=== PATIENT | female | born 1955 | race African-American/Black ===

== ENCOUNTER 2019-04-13 08:01 | Inpatient (IN) | payer MEDICARE, MEDICAID ==
[2019-04-13] VITALS (14 sets, daily range): BP systolic 72–137; BP diastolic 40–107
[~2019-04-13] VITALS: Ht 170.2 cm; Wt 93.4 kg
--- NOTE | 2019-04-13 08:19 | Emergency Room Report ---
History of Present Illness General Chief Complaint: General Complaint Source: Patient, EMS Present Illness HPI Paramedics were called because the patient had bleeding from her dialysis shunt. They state that she lost a liter of blood. (This may be an underestimate as 8 couch cushion was soaked with blood that they did not see.) Her blood pressure was 80 in the field. They established an IV and gave the patient [address] in. The patient is complaining about some lower back pain. She has had a stroke before and has halting speech. She denies any chest pain or shortness of breath. Her last dialysis was . She is due for dialysis today. The back pain is chronic. She rates his pain 5/ 10 and aching. It is not radiating. She has chronic right-sided weakness post stroke. Patient feels somewhat nauseated right now and has some retching. She does still make urine and denies dysuria. According to her cousins there was some blood in the vaginal area. The patient denies rectal or vaginal bleeding. According to her cousin she is supposed to have her fistula revised. She has an appointment for April 21. She is due for dialysis today. No fevers, chills, sore throat, chest pain, palpitations, diarrhea, abdominal pain, shortness of breath, depression, anxiety, visual changes, headache. Allergies: Coded Allergies: ASPIRIN (Unverified Allergy, Unknown, 04/13/19) PENICILLINS (Unverified Allergy, Unknown, 04/13/19) Patient History Past Medical History: see triage record Past Surgical History: other - dialysis fistula Social History: Denies: smoking, alcohol use, drug use Social History Narrative Lives by herself but checked on by cousins Last Menstrual Period: N/A Now: No Reviewed Nursing Documentation: PMH: Agreed; PSxH: Agreed Nursing Documentation-PMH Hx Cardiac Problems: Yes - CVA Hx Hypertension: Yes Review of Systems All Other Systems: negative except mentioned in HPI Physical Exam Vital Signs Date Time Temp Pulse Resp B/P (MAP) Pulse Ox O2 Delivery O2 Flow Rate FiO2 04/13/19 07:53 97.9 88 18 137/107 (117) 98 Room Air Sp02 EP Interpretation: reviewed, normal General Appearance: well appearing, no apparent distress, GCS 15, non-toxic, obese, Chronically Ill Head: normocephalic Eyes: bilateral eye PERRL, bilateral eye EOMI, bilateral eye conjunctivae pale ENT: normal pharynx, moist mucus membranes Neck: full range of motion, supple Respiratory: chest non-tender, lungs clear, normal breath sounds Cardiovascular #1: regular rate, rhythm, no edema Cardiovascular #2: 2+ radial (R), 2+ radial (L) - Fistula left upper arm with ulcerations no active bleeding Gastrointestinal: normal inspection, normal bowel sounds, non tender, no mass, non-distended Genitourinary: other - No blood external genitalia, foul odor Musculoskeletal: back normal - Some mild tenderness there, normal range of motion Neurologic: alert, oriented x3, sensory intact, motor weakness, other - Halting speech and right weakness Psychiatric: mood/affect normal Skin: warm/dry, pallor - Minimal Procedures Critical Care Time Critical Care Time Total Critical Care Time: 90 min bedside evaluation and treatment excludes procedures (EKG, Dermabond of fistulae ulcers). Reason for critical care: Hemorrhagic shock, treatment of hypotension, arranging for blood, reevaluation with considerations of sepsis and beginning antibiotics, discussion with family and patient, informed consent for blood transfusion, Dermabond application on fistula ulcers Possible complications: hypotension, hypertension, OK, shock, arrhythmias, metabolic acidosis, end organ damage, respiratory failure. Interventions: Repeat evaluations, judicious treatment with boluses of hypotension, discussion with blood bank and arrangement for blood transfusion, informed consent, reevaluation for possible sepsis, antibiotic administration, blood transfusion, Dermabond application on fistula Course: Patient presented post significant blood loss from dialysis shunt. EMS IV infiltrated. Contact vascular center for plans fistula revision. Transient hypotension with judicious bolus of normal saline given. Improvement. Discussion with blood bank if need for blood transfusions. Evaluation for possible sepsis with elevated lactic acid. Antibiotics administered for presumptive urinary tract infection. Evaluation of fluid status with chest x- ray. Discussion with patient and family risks and benefits of blood transfusion. Discussions with blood bank regarding need for stat blood. Blood transfused and rate increased per my orders. Blood pressure improved and no signs of failure. Discussion with admitting physician. Dermabond placed on dialysis catheter ulcers. Assessment of no need for emergent dialysis at this time. Discussion with nursing room service supervisor need for intensive care admission. Consultations: nursing staff, EMS, family, blood bank Performed by: Dr. Christianson Tolerated well condition = critical Additional Procedure Procedure Narrative A Betadine prep. Application of Dermabond to fistula ulcers. Tolerated well Medical Decision Making Diagnostic Impression: Primary Impression: Hemorrhagic shock Additional Impressions: Sepsis Qualified Codes: A41.9 - Sepsis, unspecified organism End stage renal disease on dialysis ER Course Patient presents with bleeding from her dialysis shunt with hypotension in the field corrected at this time. Differential includes hemorrhagic shock, acute myocardial infarction, coagulopathy, electrolyte imbalance amongst others. Evaluation with EKG, chest x-ray and labs. The patient is placed on a field crop farmer. His blood pressure has been corrected for the moment. Lactic acid will be checked. The bleeding shunt area will be stabilized with Dermabond. Due to comorbidities and the fact that she presented in shock she should be observed in the hospital in a monitored setting. EKG normal sinus rhythm without any injury. Attempt to contact vascular access center. They are Monday through Monday. Message left. Latin [employer] Studies Director IV had infiltrated. No IV fluids administered IV. IV established by RN here. Blood pressure dropped. Normal saline bolus given. Patient without change in mentation. 910 BP up to 90 after initial bolus. Repeat bolus. Lactic acid high - more likely hemorrhagic shock than sepsis. Dermabond applied to fistula ulcers. Tolerated well. WBC elevated. BC and antibiotics ordered. BP better with fluids however blood transfusions ordered. 1000 (Sepsis re-evaluation) informed consent for blood transfusion with patient and patient's family. Patient's hypotension is fluid responsive. Calling for blood. Second lactic acid slightly higher. (Need blood - antibiotics infusing.) Urine still not produced but refusing cath. Blood begun. Increased rate due to hemorrhagic shock per my order. First unit infused with clinical improvement in blood pressure. Mentation still baseline. Capillary fill good. Admitted to ICU. Laboratory Tests Test 04/13/19 08:30 04/13/19 08:40 04/13/19 08:45 04/13/19 10:15 Hepatitis B Surface Antigen Pending Prothrombin Time 11.2 SEC (9.30-11.50) Prothrombin Time INR 1.1 (0.9-1.1) Activated Partial Thromboplast Time 26 SEC (23-33) Sodium Level 140 MMOL/L (136-145) Potassium Level 5.7 MMOL/L (3.5-5.1) H Chloride Level 103 MMOL/L (98-107) Carbon Dioxide Level 20 MMOL/L (21-32) L Anion Gap 17 mmol/L (5-15) H Blood Urea Nitrogen 44 mg/dL (7-18) H Creatinine 9.0 MG/DL (0.55-1.30) H Estimate Glomerular Filtration Rate 5.5 mL/min (>60) Glucose Level 139 MG/DL (74-106) H Calcium Level 10.3 MG/DL (8.5-10.1) H Magnesium Level 2.4 MG/DL (1.8-2.4) Total Bilirubin 0.3 MG/DL (0.2-1.0) Aspartate Amino Transferase (AST) 29 U/L (15-37) Alanine Aminotransferase (ALT) 23 U/L (12-78) Alkaline Phosphatase 73 U/L (46-116) Troponin I 0.026 ng/mL (0.000-0.056) Pro-B-Type Natriuretic Peptide 1421 pg/mL (0-125) H Total Protein 7.0 G/DL (6.4-8.2) Albumin 3.1 G/DL (3.4-5.0) L Globulin 3.9 g/dL Albumin/Globulin Ratio 0.8 (1.0-2.7) L White Blood Count 18.5 K/UL (4.8-10.8) H Red Blood Count 3.25 M/UL (4.20-5.40) L Hemoglobin 9.2 G/DL (12.0-16.0) L Hematocrit 29.0 % (37.0-47.0) L Mean Corpuscular Volume 89 FL (80-99) Mean Corpuscular Hemoglobin 28.4 PG (27.0-31.0) Mean Corpuscular Hemoglobin Concent 31.8 G/DL (32.0-36.0) L Red Cell Distribution Width 13.5 % (11.6-14.8) Platelet Count 358 K/UL (150-450) Mean Platelet Volume 4.3 FL (6.5-10.1) L Neutrophils (%) (Auto) % (45.0-75.0) Lymphocytes (%) (Auto) % (20.0-45.0) Monocytes (%) (Auto) % (1.0-10.0) Eosinophils (%) (Auto) % (0.0-3.0) Basophils (%) (Auto) % (0.0-2.0) Differential Total Cells Counted 100 Neutrophils % (Manual) 84 % (45-75) H Lymphocytes % (Manual) 8 % (20-45) L Monocytes % (Manual) 8 % (1-10) Eosinophils % (Manual) 0 % (0-3) Basophils % (Manual) 0 % (0-2) Band Neutrophils 0 % (0-8) Platelet Estimate Adequate Platelet Morphology Normal Hypochromasia 2+ Anisocytosis 1+ Lactic Acid Level 4.60 mmol/L (0.4-2.0) H 5.00 mmol/L (0.66-2.22) H Test 04/13/19 18:30 04/13/19 18:45 White Blood Count 15.4 K/UL (4.8-10.8) H Red Blood Count 2.89 M/UL (4.20-5.40) L Hemoglobin 7.8 G/DL (12.0-16.0) L Hematocrit 24.6 % (37.0-47.0) L Mean Corpuscular Volume 85 FL (80-99) Mean Corpuscular Hemoglobin 27.0 PG (27.0-31.0) Mean Corpuscular Hemoglobin Concent 31.8 G/DL (32.0-36.0) L Red Cell Distribution Width 15.0 % (11.6-14.8) H Platelet Count 249 K/UL (150-450) Mean Platelet Volume 4.9 FL (6.5-10.1) L Neutrophils (%) (Auto) % (45.0-75.0) Lymphocytes (%) (Auto) % (20.0-45.0) Monocytes (%) (Auto) % (1.0-10.0) Eosinophils (%) (Auto) % (0.0-3.0) Basophils (%) (Auto) % (0.0-2.0) Neutrophils % (Manual) Pending Lymphocytes % (Manual) Pending Platelet Estimate Pending Platelet Morphology Pending Lactic Acid Level Pending EKG Diagnostic Results Rate: normal Rhythm: NSR ST Segments: no acute changes Rhythm Strip Diag. Results EP Interpretation: yes Rhythm: NSR, no PVC's, no ectopy Chest X-Ray Diagnostic Results Chest X-Ray Diagnostic Results : Chest X-Ray Ordered: Yes # of Views/Limited/Complete: 1 View Indication: Other EP Interpretation: Yes Interpretation: no consolidation, no effusion, no pneumothorax, other - Cardiomegaly Impression: Other Electronically Signed by: Electronically signed by Steve Christianson MD Last Vital Signs Date Time Temp Pulse Resp B/P (MAP) Pulse Ox O2 Delivery O2 Flow Rate FiO2 04/13/19 19:00 92 12 108/60 (76) 100 04/13/19 18:00 98.2 04/13/19 16:00 Nasal Cannula 2.0 Status: improved Disposition: ADMITTED INPATIENT Condition: Critical Steve Christianson MD Apr 13, 2019 08:19
--- NOTE | 2019-04-13 08:29 | NUR ---
ED Nurse Note: pt arrived with RA 26 due to left upper arm fistual bleeding out from home. pt is aox4, on room air.
--- NOTE | 2019-04-13 08:45 | NUR ---
ED Nurse Note: Pt Dialysis schedule is . Pt completed dialysis on . Pt cousin is at bedside.
--- NOTE | 2019-04-13 08:46 | NUR ---
ED Nurse Note: DIALYSIS NOT COMPLETED TODAY
--- NOTE | 2019-04-13 08:55 | NUR ---
ED Nurse Note: IV SITE ESTABLISHED, PATENT AND INTACT. BLOOD COLLECTED
--- NOTE | 2019-04-13 09:00 | NUR ---
ED Nurse Note: Chest xray completed
[2019-04-13 09:09] LABS: HEMOGLOBIN 9.2 G/DL (12.0-16.0); MEAN CORPUSCULAR VOLUME 89 FL (80-99); PLATELET COUNT 358 K/UL (150-450); RED BLOOD COUNT 3.25 M/UL (4.20-5.40); RED CELL DISTRIBUTION WIDTH 13.5 % (11.6-14.8); WHITE BLOOD COUNT 18.5 K/UL (4.8-10.8)
[2019-04-13 09:14] LABS: ANION GAP 17 mmol/L (5-15); BLOOD UREA NITROGEN 44 mg/dL (7-18); CALCIUM 10.3 MG/DL (8.5-10.1); CARBON DIOXIDE 20 MMOL/L (21-32); CHLORIDE 103 MMOL/L (98-107); POTASSIUM 5.7 MMOL/L (3.5-5.1); SODIUM 140 MMOL/L (136-145)
[2019-04-13 09:15] LABS: INR 1.1 (0.9-1.1)
[2019-04-13 09:20] LABS: ALANINE AMINOTRANSFERASE 23 U/L (12-78); ALBUMIN 3.1 G/DL (3.4-5.0); ALBUMIN/GLOBULIN RATIO 0.8 (1.0-2.7); ALKALINE PHOSPHATASE 73 U/L (46-116); ASPARTATE AMINO TRANSFERASE 29 U/L (15-37); BILIRUBIN,TOTAL 0.3 MG/DL (0.2-1.0)
[2019-04-13] MEDS ORDERED: Cefepime HCl 1 GM in D5W 55 ML IVPB ONE (10:00)
--- NOTE | 2019-04-13 10:15 | Diagnostic Imaging Report ---
EXAM: XR Chest, 1 View CLINICAL HISTORY: ALOC TECHNIQUE: Frontal view of the chest. COMPARISON: None FINDINGS: Hardware: None. Lungs/pleura: Normal. No focal consolidation. No pleural effusion or pneumothorax. Heart/mediastinum: Mild enlargement of the cardiac silhouette. Atherosclerotic calcifications in the aorta. Soft tissues: Unremarkable. Bones: No acute fracture. Upper abdomen: Normal. IMPRESSION: No acute disease identified.
--- NOTE | 2019-04-13 10:15 | NUR ---
ED Nurse Note: barbara bull and laisha at bedside
--- NOTE | 2019-04-13 11:05 | NUR ---
ED Nurse Note: cleaned pt, placed in new gown, changed linens. pt provided with blanket
--- NOTE | 2019-04-13 11:14 | NUR ---
ED Nurse Note: Pt assisted onto bedpan, pt was unable to urinate. pt is aox4, and refused in and out catheter.
--- NOTE | 2019-04-13 11:40 | NUR ---
ED Nurse Note: BLOOD TRANSFUSION INTIATED, VSS. PT TOLERATING TREATMENT WELL.
--- NOTE | 2019-04-13 12:03 | NUR ---
Maite patel in ED - 04/13/19 at 1204 by ALYSSA ED Nurse Note: Telephone gildardo Hernandez RN for continuity of care
[2019-04-13] MEDS ORDERED: TYLENOL EXTRA500 MG ORAL (12:11)
[2019-04-13] MEDS ORDERED: CARVEDILOL12.5 MG ORAL (12:11)
[2019-04-13] MEDS ORDERED: MONTELUKAST SOD10 MG ORAL (12:11)
[2019-04-13] MEDS ORDERED: DIPHENHYDRAMINE25 M1 ORAL (12:11)
[2019-04-13] MEDS ORDERED: SIMVASTATIN20 MG ORAL (12:11)
[2019-04-13] MEDS ORDERED: VITAMIN D32400 UNIT/ MC (12:11)
[2019-04-13] MEDS ORDERED: RENVELA0.8 GM ORAL (12:11)
--- NOTE | 2019-04-13 12:20 | NUR ---
TRANSFER TO FLOOR: Patient transferred to ICU as ordered, per ERMD. Report given to ARELI HOOD. Belongings and medications given to VIRY SINGER. Family and or S/O informed of transfer.
--- NOTE | 2019-04-13 13:00 | NUR ---
NURSE NOTES: Received new admission, transferred over from ER via [facility]. Report was received from Razia SINGLETON. Pt was placed on wood technologist, displays NSR, HR is 70 with weak peripheral pulses. Temp 98.3F axillary. Pt is alert, oriented x3, on 2L of oxygen via nasal cannula with no respiratory distress, O2Sat 98% with bilateral slightly diminished lung sounds. Pt reports nausea. Abdomen is large, round, soft, nontender to touch with hypoactive bowel sounds. Pt has peripheral IV access on right FA #20G, saline locked, patent/intact. Pt also has left UA dialysis shunt, no current bleeding. Pt uses bedpan to urinate. Skin is intact. Bed is locked, with three side rails up, HOB at 30degrees, and call light is placed within easy reach. Will contact Dr Earl for new admission orders and follow plan of care.
--- NOTE | 2019-04-13 14:00 | NUR ---
NURSE NOTES: Pt was seen by Dr Earl. Orders were received and processed. Pt had x1 episode of vomiting. aware. Pt was cleaned and repositioned in bed. VS remain stable. Addendum: 04/13/19 at 1744 by TAMIE SHAY RN Pt was administered x1 dose of Zofran per PRN order for n/v. Pt is resting now in no apparent distress.
[2019-04-13] MEDS ORDERED: Vancomycin 1.5gm/NS Premix q24h IVPB ONE (14:30)
--- NOTE | 2019-04-13 15:13 | Diagnostic Imaging Report ---
EXAM: US Duplex Bilateral Lower Extremities Veins CLINICAL HISTORY: DVT TECHNIQUE: Real-time duplex ultrasound scan of the bilateral lower extremity veins integrating B-mode two-dimensional vascular structure, Doppler spectral analysis, color flow Doppler imaging and compression. COMPARISON: None FINDINGS: Right deep veins: Unremarkable. No DVT in the right common femoral, femoral, proximal deep femoral or popliteal veins. The veins demonstrate normal color flow, are normally compressible, with normal phasic flow and/or augmentation response. Right superficial veins: Unremarkable. No thrombus in the visualized right great saphenous vein. Left deep veins: Unremarkable. No DVT in the left common femoral, femoral, proximal deep femoral or popliteal veins. The veins demonstrate normal color flow, are normally compressible, with normal phasic flow and/or augmentation response. Left superficial veins: Unremarkable. No thrombus in the visualized left great saphenous vein. Soft tissues: No acute findings. No popliteal cyst. IMPRESSION: No deep venous thrombosis identified in either lower extremity.
--- NOTE | 2019-04-13 16:00 | NUR ---
NURSE NOTES: Pt is resting with stable VS and family at bedside. Pt uses urinal at bedside, with output of clear/yellow urine.
[2019-04-13] MEDS ORDERED: DiphenhydrAMINE 25mg Tab ORAL PRN (16:45)
[2019-04-13] MEDS ORDERED: Acetaminophen 500mg (ES) tab ORAL PRN (16:45)
--- NOTE | 2019-04-13 17:30 | NUR ---
NURSE NOTES: Pt consumed 50% of dinner meal. VS remain stable. Denies any nausea at this time.
--- NOTE | 2019-04-13 17:46 | NUR ---
NURSE NOTES: Pt was seen by Dr Walker. Order received for bedside hemodialysis treatment for tomorrow. [facility] nephrology was contacted and informed regarding scheduled HD.
[2019-04-13] MEDS: Renvela 800mg Pkt ORAL SCH (18:05)
[2019-04-13 19:05] LABS: HEMATOCRIT 24.6 % (37.0-47.0); HEMOGLOBIN 7.8 G/DL (12.0-16.0); MEAN CORPUSCULAR VOLUME 85 FL (80-99); PLATELET COUNT 249 K/UL (150-450); RED BLOOD COUNT 2.89 M/UL (4.20-5.40); WHITE BLOOD COUNT 15.4 K/UL (4.8-10.8)
--- NOTE | 2019-04-13 19:34 | NUR ---
HAND-OFF: Report given to Latrice SINGLETON. Endorsed plan of care.
--- NOTE | 2019-04-13 20:00 | NUR ---
NURSE NOTES: received report from leobardo cano pt awake and alert no c/o pain or sob hr sr-st o2 100% reposition
--- NOTE | 2019-04-13 20:15 | History and Physical Report ---
DATE OF ADMISSION: 04/13/2019 REASON FOR ADMISSION: Bleeding AV shunt. HISTORY OF PRESENT ILLNESS: The patient is a 63-year-old female apparently was noted to have significant amount of bleeding, possibly up to one liter of blood from her dialysis shunt. The patient noted to be hypotensive, was given intravenous fluids as well as one unit of blood transfusion. The patient is comfortable at present, admitted to ICU. Now vital signs somewhat improved. The patient was brought in. She lives with her family. Apparently, she does get dialysis three times per week. No other complaints of chest pain or palpitations. The patient also noted to have elevated white cell count and is planned to have another unit of blood. The patient noted to have somewhat elevated lactic acid. She denies any fever or chills. Denies any diarrhea, but did have a bout of vomiting. PAST MEDICAL HISTORY: Notable for end-stage renal disease, has left upper extremity fistula. The patient also has history of hypertension, possible cardiomyopathy, history of CVA, history of hypertension. MEDICATIONS: Reviewed. ALLERGIES: Reviewed. SOCIAL HISTORY: Nonsmoker and nondrinker. She is disabled. She lives with family. REVIEW OF SYSTEMS: All 10 points reviewed, otherwise negative. PHYSICAL EXAMINATION: GENERAL: A well-developed female, appears to be chronically ill. VITAL SIGNS: Blood pressure 114/49, heart rate 89, respiratory rate 14, sats 100%, temperature 97. HEENT: Overall negative. NECK: Supple. No adenopathy LUNGS: Good air entry overall. CARDIAC: S1 and S2. Regular rate and rhythm without murmurs, rubs, gallops. ABDOMEN: Soft, nontender, nondistended. EXTREMITIES: No cyanosis or clubbing. No edema. Left upper extremity fistula noted with mild bulging. LABORATORY DATA: Reviewed in chart. Lactic acid 4.6. Troponin 0.026. Potassium 5.7, BUN 44, creatinine 9, albumin 3.1. White cell count 18.5, hemoglobin 9.2, platelets 358. IMPRESSION: 1. Bleeding AV fistula, significant amount of blood loss noted. 2. Anemia due to the above. 3. End-stage renal disease. 4. Mild protein-calorie malnutrition. 5. Elevated natriuretic peptide. 6. Lactic acidemia. 7. Possible sepsis. 8. No evidence of coagulopathy. 9. Hyperkalemia. RECOMMENDATIONS: 1. Supportive care. 2. IV fluids with caution. 3. One unit of blood to be transfused further. 4. Empiric antibiotics with vancomycin. 5. Blood cultures, renal evaluation, ID evaluation, and monitor closely for further care and management. 6. Elevated troponins likely due to demand ischemia. Eric Earl M.D. DR: Suyapa JOB#: [id number] CC:
[2019-04-13] MEDS: Pantoprazole Inj IVP SCH (21:00)
[2019-04-13] MEDS: Carvedilol 12.5mg tab ORAL SCH (21:01)
--- NOTE | 2019-04-13 21:45 | Consultation ---
DATE OF CONSULTATION: 04/13/2019 CONSULTING PHYSICIAN: Joe Canada M.D. REFERRING PHYSICIAN: Eric Earl M.D. REASON FOR CONSULTATION: End-stage renal disease. HISTORY OF PRESENT ILLNESS: The patient presents to the emergency room by paramedics as she was bleeding from the dialysis fistula, left arm. She has not received her dialysis today and her blood pressure is low as 80 in the field. There is a history of obesity; CVA; right-sided weakness; diabetes, currently off of all medication; hypertension; and end-stage renal disease. ALLERGIES: Aspirin and penicillin. HABITS: She is a nonsmoker and nondrinker. SOCIAL HISTORY: She lives with family. HOME MEDICATIONS: Include Tylenol, carvedilol, vitamin D3, diphenhydramine, montelukast, sevelamer, and simvastatin. SURGERIES: Left arm AV fistula. SYSTEM REVIEW: HEAD, EYES, EARS, NOSE, AND THROAT: She wears eye glasses. No known diabetic retinopathy. Hearing is good. ENDOCRINE: Obesity and diabetes. No known thyroid disease. PULMONARY: No asthma, TB, or chronic cough. CARDIAC: No angina or [place]. There is a history of hypertension. GASTROINTESTINAL: No gastrointestinal bleeding or ulcers. There is occasional nausea. GENITOURINARY: No dysuria or hematuria. She makes small amounts of urine. NEUROLOGIC: There is CVA and right-sided weakness. She walks slowly with a walker. PHYSICAL EXAMINATION: GENERAL: The patient is alert and obese lady, seen in the ICU. VITAL SIGNS: Temperature 98.2 degrees, pulse 85, respirations 11, and blood pressure 111/46. HEAD, EYES, EARS, NOSE, AND THROAT: Sclerae are nonicteric. Ocular motions intact in all directions. Oral mucosa moist. NECK: No adenopathy or thyroid enlargement. LUNGS: Clear. HEART: Regular rhythm. No murmur. ABDOMEN: Obese and soft without organomegaly or masses. EXTREMITIES: No edema. There is left arm AV fistula with a good thrill and there is no active bleeding at this time. PERTINENT LABORATORY DATA: White count 18.5 and hemoglobin is 9.2. Sodium 140, potassium 5.7, BUN 44, and creatinine 9. Lactic acid 4.6 and 5. Troponin 0.026. BNP 1421. IMPRESSION: 1. Status post bleed, left arm arteriovenous fistula. 2. End-stage renal disease. 3. Mild hyperkalemia. 4. Obesity. 5. Diabetes. 6. Leukocytosis. PLAN: The patient has occult bleeding from dialysis fistula, concerned for infection in view of leukocytosis and cultures will be taken and broad-spectrum antibiotics given. We will attempt dialysis tomorrow via AV fistula. Watch closely for any bleeding or further hypotension. Joe Canada M.D. DR: LIDIA JOB#: [id number] CC:
--- NOTE | 2019-04-13 22:00 | NUR ---
NURSE NOTES: asleep apparent acute distress noted
[2019-04-14] VITALS (20 sets, daily range): BP systolic 94–125; BP diastolic 43–68
--- NOTE | 2019-04-14 | NUR ---
NURSE NOTES: condition un change
--- NOTE | 2019-04-14 02:00 | NUR ---
NURSE NOTES: ASLEEP NO ACUTE DISTRESS NOTED
--- NOTE | 2019-04-14 04:00 | NUR ---
NURSE NOTES: COMPLETE BED BATH ORAL CARE AND BACK CARE DONE
[2019-04-14 05:54] LABS: HEMATOCRIT 22.9 % (37.0-47.0); HEMOGLOBIN 7.4 G/DL (12.0-16.0); MEAN CORPUSCULAR VOLUME 86 FL (80-99); PLATELET COUNT 253 K/UL (150-450); RED BLOOD COUNT 2.65 M/UL (4.20-5.40); RED CELL DISTRIBUTION WIDTH 13.9 % (11.6-14.8); WHITE BLOOD COUNT 13.2 K/UL (4.8-10.8)
--- NOTE | 2019-04-14 06:00 | NUR ---
NURSE NOTES: awake and alert no c/o pain or sob
[2019-04-14 06:14] LABS: ALANINE AMINOTRANSFERASE 15 U/L (12-78); ALBUMIN 2.5 G/DL (3.4-5.0); ALBUMIN/GLOBULIN RATIO 0.7 (1.0-2.7); ALKALINE PHOSPHATASE 47 U/L (46-116); ANION GAP 10 mmol/L (5-15); ASPARTATE AMINO TRANSFERASE 8 U/L (15-37); BILIRUBIN,TOTAL 0.3 MG/DL (0.2-1.0); BLOOD UREA NITROGEN 58 mg/dL (7-18); CALCIUM 9.5 MG/DL (8.5-10.1); CARBON DIOXIDE 25 MMOL/L (21-32); CHLORIDE 103 MMOL/L (98-107); CREATININE 10.5 MG/DL (0.55-1.30); POTASSIUM 5.6 MMOL/L (3.5-5.1); SODIUM 137 MMOL/L (136-145)
--- NOTE | 2019-04-14 07:36 | NUR ---
HAND-OFF: Report given to thomas cano using sbar.
--- NOTE | 2019-04-14 07:37 | NUR ---
NURSE NOTES: Received patient from ARELI Pollard. Patient easily aroused at this time. Patient alert to name, place, and time. Patient denies pain or acute distress. Patient on room air with SpO2 96% and RR 12. Sinus rhythm on the cardiac cath lab manager at this time with rate of 94 beats per minute. Patient has left upper arm AV shunt that is patent with intact bruit and thrill. Patient admitted for bleeding at the shunt site. Patient Hgb is 7.4 this morning. Will call and inform Dr Canada and ensure Dr Earl is aware. Patient has an order for dialysis today. Will follow up with nuclear process engineer regarding time. Patient has right upper arm 20 gauge peripheral IV that is patent, asymptomatic, and saline locked at this time. Patient ambulates to the restroom. Patient bed in low position with bed alarm on and call light in reach at this time. Notified patient to let us know when she needs to get up to use the restroom so we can assist her for safety. Oral care supplies offered. Patient repositioned. Skin intact. Bed in low position with bed alarm on and call light in reach at this time. Will continue to monitor.
--- NOTE | 2019-04-14 07:52 | NUR ---
NURSE NOTES: Spoke with Erik Palafox, HD nurse, stated she will be doing dialysis for patient today, in the afternoon.
--- NOTE | 2019-04-14 08:00 | NUR ---
NURSE NOTES: Patient asleep at this time. No s/s of pain/discomfort. VSS. Safety precautions in place, will continue to monitor patient.
--- NOTE | 2019-04-14 08:59 | Critical Care Progress Note ---
Assessment/Plan Assessment/Plan IMPRESSION: 1. Bleeding AV fistula, significant amount of blood loss noted. 2. Anemia due to the above. 3. End-stage renal disease. 4. Mild protein-calorie malnutrition. 5. Elevated natriuretic peptide. 6. Lactic acidemia. 7. Possible sepsis. 8. No evidence of coagulopathy. 9. Hyperkalemia. PLAN care as is antibiotics as is further transfusion with noted blood loss HD monitor for change ICU care reviewed and discussed monitor acid base and labs nutrition with PO reviewed care in detail medications/laboratory data/nursing notes/ICU care reviewed in detail note reviewed and edited care discussed with RN and RT ICU time spent >35 minutes reviewing and coordinating care Critical Care - Subjective Interval Events: events noted renal noted care overall reviewed Condition: critical EKG Rhythm: Sinus Rhythm I&O: Intake and Output 04/13/19 04/14/19 19:00 07:00 Intake Total 1350 ml 200 ml Output Total 100 ml 250 ml Balance 1250 ml -50 ml Intake Oral 100 ml 200 ml IV Total 750 ml Blood Product 500 ml Output Urine Total 100 ml 250 ml # Voids 1 Critical Care - Objective Last 24 Hour Vital Signs Date Time Temp Pulse Resp B/P (MAP) Pulse Ox O2 Delivery O2 Flow Rate FiO2 04/14/19 08:00 94 11 114/50 (71) 97 04/14/19 08:00 Room Air 04/14/19 07:53 93 04/14/19 07:00 97 12 98/43 (61) 96 04/14/19 06:00 99 13 110/60 (77) 99 04/14/19 05:00 98 11 106/54 (71) 98 04/14/19 04:00 104 17 112/60 (77) 100 04/14/19 04:00 Nasal Cannula 2.0 04/14/19 04:00 103 04/14/19 03:00 104 17 125/68 (87) 99 04/14/19 02:00 97 11 109/59 (76) 99 04/14/19 01:00 102 11 103/47 (65) 99 04/14/19 00:00 Nasal Cannula 2.0 04/14/19 00:00 98.6 102 11 103/47 (65) 99 04/14/19 00:00 100 04/13/19 23:00 103 11 126/57 (80) 99 04/13/19 22:00 102 11 84/41 (55) 99 04/13/19 21:01 103 104/54 04/13/19 21:00 101 13 107/55 (72) 100 04/13/19 20:00 98.4 98 13 101/58 (72) 100 04/13/19 20:00 93 04/13/19 20:00 Nasal Cannula 2.0 04/13/19 19:00 92 12 108/60 (76) 100 04/13/19 18:00 98.2 90 12 110/72 (85) 100 04/13/19 17:03 95 14 72/40 (51) 100 04/13/19 16:00 Nasal Cannula 2.0 04/13/19 16:00 88 12 124/53 (76) 100 04/13/19 15:00 88 11 115/58 (77) 100 04/13/19 14:00 98.2 85 11 111/46 (67) 100 04/13/19 12:54 89 14 111/49 (69) 100 04/13/19 12:48 93 04/13/19 12:45 Nasal Cannula 2.0 04/13/19 12:27 97.0 85 13 107/64 100 Room Air 04/13/19 12:00 97.0 83 13 04/13/19 11:55 96.5 86 15 04/13/19 11:50 97.0 85 12 04/13/19 11:45 96.4 83 14 04/13/19 11:14 96.5 82 14 106/61 100 Room Air 04/13/19 09:56 98.0 78 15 96/44 100 Room Air Labs: Labs Test 04/13/19 08:30 04/13/19 08:40 04/13/19 08:45 04/13/19 10:15 Hepatitis B Surface Antigen Negative (NEGATIVE) Prothrombin Time 11.2 SEC (9.30-11.50) Prothromb Time International Ratio 1.1 (0.9-1.1) Activated Partial Thromboplast Time 26 SEC (23-33) Sodium Level 140 MMOL/L (136-145) Potassium Level 5.7 MMOL/L (3.5-5.1) Chloride Level 103 MMOL/L (98-107) Carbon Dioxide Level 20 MMOL/L (21-32) Anion Gap 17 mmol/L (5-15) Blood Urea Nitrogen 44 mg/dL (7-18) Creatinine 9.0 MG/DL (0.55-1.30) Estimat Glomerular Filtration Rate 5.5 mL/min (>60) Glucose Level 139 MG/DL (74-106) Calcium Level 10.3 MG/DL (8.5-10.1) Magnesium Level 2.4 MG/DL (1.8-2.4) Total Bilirubin 0.3 MG/DL (0.2-1.0) Aspartate Amino Transf (AST/SGOT) 29 U/L (15-37) Alanine Aminotransferase (ALT/SGPT) 23 U/L (12-78) Alkaline Phosphatase 73 U/L (46-116) Troponin I 0.026 ng/mL (0.000-0.056) Pro-B-Type Natriuretic Peptide 1421 pg/mL (0-125) Total Protein 7.0 G/DL (6.4-8.2) Albumin 3.1 G/DL (3.4-5.0) Globulin 3.9 g/dL Albumin/Globulin Ratio 0.8 (1.0-2.7) White Blood Count 18.5 K/UL (4.8-10.8) Red Blood Count 3.25 M/UL (4.20-5.40) Hemoglobin 9.2 G/DL (12.0-16.0) Hematocrit 29.0 % (37.0-47.0) Mean Corpuscular Volume 89 FL (80-99) Mean Corpuscular Hemoglobin 28.4 PG (27.0-31.0) Mean Corpuscular Hemoglobin Concent 31.8 G/DL (32.0-36.0) Red Cell Distribution Width 13.5 % (11.6-14.8) Platelet Count 358 K/UL (150-450) Mean Platelet Volume 4.3 FL (6.5-10.1) Neutrophils (%) (Auto) % (45.0-75.0) Lymphocytes (%) (Auto) % (20.0-45.0) Monocytes (%) (Auto) % (1.0-10.0) Eosinophils (%) (Auto) % (0.0-3.0) Basophils (%) (Auto) % (0.0-2.0) Differential Total Cells Counted 100 Neutrophils % (Manual) 84 % (45-75) Lymphocytes % (Manual) 8 % (20-45) Monocytes % (Manual) 8 % (1-10) Eosinophils % (Manual) 0 % (0-3) Basophils % (Manual) 0 % (0-2) Band Neutrophils 0 % (0-8) Platelet Estimate Adequate Platelet Morphology Normal Hypochromasia 2+ Anisocytosis 1+ Lactic Acid Level 4.60 mmol/L (0.4-2.0) 5.00 mmol/L (0.66-2.22) Test 04/13/19 18:30 04/13/19 18:45 04/14/19 05:18 White Blood Count 15.4 K/UL (4.8-10.8) 13.2 K/UL (4.8-10.8) Red Blood Count 2.89 M/UL (4.20-5.40) 2.65 M/UL (4.20-5.40) Hemoglobin 7.8 G/DL (12.0-16.0) 7.4 G/DL (12.0-16.0) Hematocrit 24.6 % (37.0-47.0) 22.9 % (37.0-47.0) Mean Corpuscular Volume 85 FL (80-99) 86 FL (80-99) Mean Corpuscular Hemoglobin 27.0 PG (27.0-31.0) 27.9 PG (27.0-31.0) Mean Corpuscular Hemoglobin Concent 31.8 G/DL (32.0-36.0) 32.4 G/DL (32.0-36.0) Red Cell Distribution Width 15.0 % (11.6-14.8) 13.9 % (11.6-14.8) Platelet Count 249 K/UL (150-450) 253 K/UL (150-450) Mean Platelet Volume 4.9 FL (6.5-10.1) 4.2 FL (6.5-10.1) Neutrophils (%) (Auto) % (45.0-75.0) % (45.0-75.0) Lymphocytes (%) (Auto) % (20.0-45.0) % (20.0-45.0) Monocytes (%) (Auto) % (1.0-10.0) % (1.0-10.0) Eosinophils (%) (Auto) % (0.0-3.0) % (0.0-3.0) Basophils (%) (Auto) % (0.0-2.0) % (0.0-2.0) Differential Total Cells Counted 100 Neutrophils % (Manual) 85 % (45-75) Lymphocytes % (Manual) 11 % (20-45) Monocytes % (Manual) 4 % (1-10) Eosinophils % (Manual) 0 % (0-3) Basophils % (Manual) 0 % (0-2) Band Neutrophils 0 % (0-8) Platelet Estimate Adequate Platelet Morphology Normal Hypochromasia 2+ Anisocytosis 1+ Lactic Acid Level 0.50 mmol/L (0.4-2.0) Sodium Level 137 MMOL/L (136-145) Potassium Level 5.6 MMOL/L (3.5-5.1) Chloride Level 103 MMOL/L (98-107) Carbon Dioxide Level 25 MMOL/L (21-32) Anion Gap 10 mmol/L (5-15) Blood Urea Nitrogen 58 mg/dL (7-18) Creatinine 10.5 MG/DL (0.55-1.30) Estimat Glomerular Filtration Rate 4.5 mL/min (>60) Glucose Level 102 MG/DL (74-106) Calcium Level 9.5 MG/DL (8.5-10.1) Total Bilirubin 0.3 MG/DL (0.2-1.0) Aspartate Amino Transf (AST/SGOT) 8 U/L (15-37) Alanine Aminotransferase (ALT/SGPT) 15 U/L (12-78) Alkaline Phosphatase 47 U/L (46-116) Total Protein 6.0 G/DL (6.4-8.2) Albumin 2.5 G/DL (3.4-5.0) Globulin 3.5 g/dL Albumin/Globulin Ratio 0.7 (1.0-2.7) Objective: GENERAL: A well-developed female, appears to be chronically ill. NAD HEENT: Overall negative. NECK: Supple. No adenopathy LUNGS: Good air entry overall. without rhonchi or wheeze CARDIAC: S1 and S2. Regular rate and rhythm without murmurs, rubs, gallops. ABDOMEN: Soft, nontender, nondistended. EXTREMITIES: No cyanosis or clubbing. No edema. Left upper extremity fistula noted with mild bulging. NEURO: nonfocal Micro: Microbiology Date/Time Source Procedure Growth Status 04/13/19 11:20 Rectum Received Eric Earl MD Apr 14, 2019 08:59
[2019-04-14] MEDS: Carvedilol 12.5mg tab ORAL SCH ×2 (09:00→21:00)
[2019-04-14] MEDS: Pantoprazole Inj IVP SCH ×2 (09:09→21:27)
[2019-04-14] MEDS: Renvela 800mg Pkt ORAL SCH ×3 (09:09→18:44)
--- NOTE | 2019-04-14 09:15 | NUR ---
NURSE NOTES: Dr Earl at bedside for rounds, new orders received. Will carry out and will continue to monitor patient.
[2019-04-14] MEDS ORDERED: Cefepime HCl 1 GM in D5W 55 ML IVPB SCH (10:00)
--- NOTE | 2019-04-14 10:00 | NUR ---
NURSE NOTES: Assisted patient on bedpan. Provided marilyn-care and linen change. Patient did oral care independently. Patient denies pain/discomfort at this time. VSS. Tolerating room air, saturating 100%. No distress noted. SCDs applied. Safety precautions in place. Will continue to monitor.
--- NOTE | 2019-04-14 12:00 | NUR ---
NURSE NOTES: Dr Canada at bedside for rounds; notified and made aware of patient's HD order today and updated on plan of care regarding labs. No new orders received at this time. Patient denies pain/discomfort, no s/s of bleeding. traffic control technician also present at bedside for blood draw. Instructed patient and family member at bedside to call for assistance, verbalized understanding. Will continue to monitor.
--- NOTE | 2019-04-14 12:00 | NUR ---
NURSE NOTES: Patient awake, alert, and oriented to name, place, purpose, and time. Patient denies pain or acute distress. Patient on room air with SpO2 94% and RR 19. Sinus rhythm on the bus driver/monitor at this time with rate of 97 beats per minute. Patient has left upper arm AV shunt that is patent with intact bruit and thrill. Patient admitted for bleeding at the shunt site. Shunt no longer bleeding. Scabbing and inflamed skin noted at the site. Will continue to monitor. Hemodialysis nurse called and reported that she will be dialyzing the patient in the afternoon. Dr Earl ordered one PRBC to be given during dialysis. Will follow up. Right upper arm 20 gauge peripheral IV remains patent, asymptomatic, and saline locked at this time. Patient repositioned. Oral care performed. Bed in low position with bed alarm on and call light in reach at this time. Will continue to monitor. Addendum: 04/14/19 at 1240 by Moriah Mccabe RN Temp 99.2 orally. [place] removed. Will reassess and continue to monitor.
--- NOTE | 2019-04-14 12:34 | NUR ---
NURSE NOTES: Patient's 1200 temperature 99.2 orally, blanket taken off at this time. Lunch provided to patient. Patient denies pain/discomfort. Will recheck temperature in an hour.
--- NOTE | 2019-04-14 12:53 | NUR ---
NURSE NOTES: Received call from Dr Gomez and received order to prepare consent form for left arm fistulagram with possible intervention and dialysis catheter placement; CMP, CBC, PT, PTT labs on 04/14 at 0400; and NPO at midnight. Orders read back, verified, and placed. Consent form prepared. Patient notified of procedure scheduled but she does not want to sign the consent until the doctor explains the procedure to her. Consent in the chart. Asked Dr Gomez if it is okay to use AV shunt for hemodialysis this afternoon. He reported that it was fine but the dialysis nurse should be advised to be cautious.
--- NOTE | 2019-04-14 14:00 | NUR ---
NURSE NOTES: Assisted patient on bedpan to void. Norma-care provided. Patient repositioned self, bilateral lower legs elevated. Patient resting in bed, watching TV, no c/o pain/discomfort. Will continue to monitor.
--- NOTE | 2019-04-14 14:56 | Nephrology Progress Note ---
Assessment/Plan Problem List: (1) AVF (arteriovenous fistula) Assessment: s/p bleed with collapsed bullae, possible occult infection (2) End stage renal disease on dialysis (3) Hemorrhagic shock Plan HD 04/13 , d/w dr santos to place permcath to rest avf Subjective Constitutional: Reports: weakness HEENT: Reports: no symptoms Genitourinary: Reports: no symptoms Neurologic/Psychiatric: Reports: pre-existing deficit Objective Objective Last 24 Hour Vital Signs Date Time Temp Pulse Resp B/P (MAP) Pulse Ox O2 Delivery O2 Flow Rate FiO2 04/14/19 14:00 99 14 117/58 (77) 98 04/14/19 13:00 98.8 104 16 118/61 (80) 97 04/14/19 12:00 Room Air 04/14/19 12:00 99.2 96 14 113/62 (79) 99 04/14/19 11:57 97 04/14/19 11:00 96 13 100/54 (69) 99 04/14/19 10:00 100 15 119/56 (77) 96 04/14/19 09:00 94 114/50 04/14/19 09:00 93 11 109/48 (68) 96 04/14/19 08:00 98.2 94 11 114/50 (71) 97 04/14/19 08:00 Room Air 04/14/19 07:53 93 04/14/19 07:00 97 12 98/43 (61) 96 04/14/19 06:00 99 13 110/60 (77) 99 04/14/19 05:00 98 11 106/54 (71) 98 04/14/19 04:00 104 17 112/60 (77) 100 04/14/19 04:00 Nasal Cannula 2.0 04/14/19 04:00 103 04/14/19 03:00 104 17 125/68 (87) 99 04/14/19 02:00 97 11 109/59 (76) 99 04/14/19 01:00 102 11 103/47 (65) 99 04/14/19 00:00 Nasal Cannula 2.0 04/14/19 00:00 98.6 102 11 103/47 (65) 99 04/14/19 00:00 100 04/13/19 23:00 103 11 126/57 (80) 99 04/13/19 22:00 102 11 84/41 (55) 99 04/13/19 21:01 103 104/54 04/13/19 21:00 101 13 107/55 (72) 100 04/13/19 20:00 98.4 98 13 101/58 (72) 100 04/13/19 20:00 93 04/13/19 20:00 Nasal Cannula 2.0 04/13/19 19:00 92 12 108/60 (76) 100 04/13/19 18:00 98.2 90 12 110/72 (85) 100 04/13/19 17:03 95 14 72/40 (51) 100 04/13/19 16:00 Nasal Cannula 2.0 04/13/19 16:00 88 12 124/53 (76) 100 04/13/19 15:00 88 11 115/58 (77) 100 Intake and Output 04/13/19 04/14/19 19:00 07:00 Intake Total 1350 ml 200 ml Output Total 100 ml 250 ml Balance 1250 ml -50 ml Intake Oral 100 ml 200 ml IV Total 750 ml Blood Product 500 ml Output Urine Total 100 ml 250 ml # Voids 1 Laboratory Tests 04/13/19 18:30: White Blood Count 15.4H, Red Blood Count 2.89L, Hemoglobin 7.8L, Hematocrit 24.6L, Mean Corpuscular Volume 85, Mean Corpuscular Hemoglobin 27.0, Mean Corpuscular Hemoglobin Concent 31.8L, Red Cell Distribution Width 15.0H, Platelet Count 249, Mean Platelet Volume 4.9L, Neutrophils (%) (Auto) , Lymphocytes (%) (Auto) , Monocytes (%) (Auto) , Eosinophils (%) (Auto) , Basophils (%) (Auto) , Differential Total Cells Counted 100, Neutrophils % ( Manual) 85H, Lymphocytes % (Manual) 11L, Monocytes % (Manual) 4, Eosinophils % ( Manual) 0, Basophils % (Manual) 0, Band Neutrophils 0, Platelet Estimate Adequate, Platelet Morphology Normal, Hypochromasia 2+, Anisocytosis 1+ 04/13/19 18:45: Lactic Acid Level 0.50 04/14/19 05:18: White Blood Count 13.2H, Red Blood Count 2.65L, Hemoglobin 7.4L, Hematocrit 22.9L, Mean Corpuscular Volume 86, Mean Corpuscular Hemoglobin 27.9, Mean Corpuscular Hemoglobin Concent 32.4, Red Cell Distribution Width 13.9, Platelet Count 253, Mean Platelet Volume 4.2L, Neutrophils (%) (Auto) , Lymphocytes (%) ( Auto) , Monocytes (%) (Auto) , Eosinophils (%) (Auto) , Basophils (%) (Auto) , Differential Total Cells Counted 100, Neutrophils % (Manual) 80H, Lymphocytes % (Manual) 12L, Monocytes % (Manual) 6, Eosinophils % (Manual) 2, Basophils % ( Manual) 0, Band Neutrophils 0, Platelet Estimate Adequate, Platelet Morphology Normal, Hypochromasia 3+, Anisocytosis 1+, Sodium Level 137, Potassium Level 5.6H, Chloride Level 103, Carbon Dioxide Level 25, Anion Gap 10, Blood Urea Nitrogen 58H, Creatinine 10.5H, Estimat Glomerular Filtration Rate 4.5, Glucose Level 102, Calcium Level 9.5, Total Bilirubin 0.3, Aspartate Amino Transf (AST/ SGOT) 8L, Alanine Aminotransferase (ALT/SGPT) 15, Alkaline Phosphatase 47, Total Protein 6.0L, Albumin 2.5L, Globulin 3.5, Albumin/Globulin Ratio 0.7L Height (Feet): 5 Height (Inches): 9.00 Weight (Pounds): 204 General Appearance: no apparent distress, morbidly obese EENT: normal ENT inspection Neck: normal alignment Cardiovascular: normal rate, regular rhythm Respiratory/Chest: lungs clear Abdomen: non tender Extremities: non-tender, no edema Neurologic: annual giving officer II-XII grossly normal, motor weakness Joe Canada MD Apr 14, 2019 14:56
--- NOTE | 2019-04-14 15:20 | NUR ---
NURSE NOTES: HD nurse at bedside; initiated HD, VSS at this time.
--- NOTE | 2019-04-14 16:00 | NUR ---
NURSE NOTES: HD ongoing. VSS, patient is afebrile. Patient denies pain/discomfort. Patient repositions self. Will continue to monitor.
--- NOTE | 2019-04-14 16:30 | Consultation ---
DATE OF CONSULTATION: 04/14/2019 INFECTIOUS DISEASES CONSULTATION CONSULTING PHYSICIAN: Madeline Shetty M.D. REFERRING PHYSICIAN: Eric Earl M.D. REASON FOR CONSULTATION: Possible sepsis. HISTORY OF PRESENTING ILLNESS: This is a 63-year-old lady with history of renal failure, on dialysis; hypertension; CVA; cardiomyopathy, who came in because she had some bleeding from her shunt site. She was found to be hypotensive. She has been admitted to the ICU and an Infectious Diseases consultation has been obtained for antibiotics. PAST MEDICAL HISTORY: 1. History of renal failure, on dialysis. 2. Hypertension. 3. Cardiomyopathy. 4. CVA. SOCIAL HISTORY: She does not smoke, drink, or use drugs. FAMILY HISTORY: Positive for stomach cancer in the mother. REVIEW OF SYSTEMS: RESPIRATORY: No fever, chills, cough, shortness of breath, or chest pain. CARDIAC: No chest pain. No palpitation. No dizziness. No syncope. GASTROINTESTINAL: No nausea. No vomiting. No abdominal pain or diarrhea. MEDICATIONS: As an inpatient, she is on cefepime, IV vancomycin, Coreg, Renvela, Lasix, Tylenol, Benadryl, Zofran. ALLERGIES: 1. Aspirin. 2. Penicillin produces hives. PHYSICAL EXAMINATION: VITAL SIGNS: Temperature of 98.2, T-max of 98.6, pulse 100, respiratory of 15, blood pressure 119/56, O2 saturation of 96%. HEENT: Pupils equally reactive to light and accommodation. Mouth appears clean without thrush. NECK: Supple. No adenopathy. No JVD. CARDIOVASCULAR: Regular rate and rhythm. No murmurs. LUNGS: Clear to auscultation bilaterally. No crackles. No wheezes. ABDOMEN: Soft, nontender. No organomegaly. EXTREMITIES: No cyanosis, no clubbing, no edema. LABORATORY DATA: White count of 18.5 on 04/13/2019. White count of 13.2, hemoglobin 7.4, hematocrit 22.9, MCV 86, platelet count 253,000. Sodium 137, potassium 5.6, chloride 103, bicarb 25, BUN 58, creatinine 10.5, glucose of 102, calcium 9.5, total bilirubin 0.3. AST 8, ALT 15, alkaline phosphatase 47. Total protein 6. Albumin 2.5. Hepatitis B surface antigen is negative. Chest x-ray is showing no acute disease. Ultrasound of the legs showed no evidence of DVT. ASSESSMENT: 1. This is a 63-year-old lady with history of diabetes, hypertension, renal failure, who comes in after she had some bleeding from a dialysis site, would be concerned regarding a fistula infection or sepsis. 2. Renal failure. 3. CVA. 4. Cardiomyopathy. PLAN: 1. We will order blood cultures. 2. We will continue IV vancomycin and cefepime. 3. We will follow up cultures and adjust antibiotics accordingly. I would like to thank, Dr. Earl for this consultation. Madeline Shetty M.D. DR: DEBRA JOB#: [id number] CC: Eric Earl M.D.; Fax#: [phone]
--- NOTE | 2019-04-14 18:22 | NUR ---
HAND-OFF: Report given to ARELI Lubin. Patient currently receiving dialysis, VSS.
[2019-04-14 18:23] LABS: BASOPHILS % (AUTO) 0.1 % (0.0-2.0); EOSINOPHILS % (AUTO) 2.7 % (0.0-3.0); HEMATOCRIT 26.6 % (37.0-47.0); LYMPHOCYTES % (AUTO) 13.7 % (20.0-45.0); MEAN CORPUSCULAR VOLUME 85 FL (80-99); MONOCYTES % (AUTO) 4.7 % (1.0-10.0); NEUTROPHILS % (AUTO) 78.8 % (45.0-75.0); PLATELET COUNT 242 K/UL (150-450); RED BLOOD COUNT 3.15 M/UL (4.20-5.40); RED CELL DISTRIBUTION WIDTH 13.3 % (11.6-14.8); WHITE BLOOD COUNT 11.6 K/UL (4.8-10.8)
[2019-04-14 18:48] LABS: ANION GAP 11 mmol/L (5-15); BLOOD UREA NITROGEN 23 mg/dL (7-18); CALCIUM 8.8 MG/DL (8.5-10.1); CARBON DIOXIDE 28 MMOL/L (21-32); CHLORIDE 99 MMOL/L (98-107); CREATININE 4.2 MG/DL (0.55-1.30); POTASSIUM 2.9 MMOL/L (3.5-5.1); SODIUM 138 MMOL/L (136-145)
--- NOTE | 2019-04-14 19:03 | NUR ---
NURSE NOTES: Received report from laboratory that serum potassium now 2.9 post dialysis. Ordered stat CMP redraw to confirm as potassium was 5.6 this morning prior to dialysis.
--- NOTE | 2019-04-14 19:41 | NUR ---
NURSE NOTES: Patient transferred from ICU, report given by TristianRN. Patient in stable condition, AOx3, denies pain, NPO after midnight, IV site on right forearm g 20, asymptomatic, intact, L arm AV shunt, Belonging list checked and signed, bed low and locked, side rails upx3, call light within reach, will continue to monitor and reassess
--- NOTE | 2019-04-14 19:41 | NUR ---
TRANSFER TO FLOOR: Patient transferred to Telemetry, per Dr. Earl. Report given to Xuan SINGLETON. Belongings and medications given to oncoming nurse. Family and or S/O informed of transfer.
[2019-04-14] MEDS ORDERED: Acetaminophen 500mg (ES) tab ORAL PRN (20:00)
[2019-04-14] MEDS ORDERED: DiphenhydrAMINE 25mg Tab ORAL PRN (20:00)
[2019-04-14 20:07] LABS: ANION GAP 12 mmol/L (5-15); BLOOD UREA NITROGEN 24 mg/dL (7-18); CALCIUM 8.7 MG/DL (8.5-10.1); CARBON DIOXIDE 27 MMOL/L (21-32); CHLORIDE 98 MMOL/L (98-107); CREATININE 5.3 MG/DL (0.55-1.30); POTASSIUM 4.7 MMOL/L (3.5-5.1); SODIUM 136 MMOL/L (136-145)
[2019-04-14 20:12] LABS: ALANINE AMINOTRANSFERASE 20 U/L (12-78); ALBUMIN 2.5 G/DL (3.4-5.0); ALBUMIN/GLOBULIN RATIO 0.7 (1.0-2.7); ALKALINE PHOSPHATASE 57 U/L (46-116); ASPARTATE AMINO TRANSFERASE 33 U/L (15-37); BILIRUBIN,TOTAL 0.4 MG/DL (0.2-1.0)
[2019-04-15] VITALS (12 sets, daily range): BP systolic 103–132; BP diastolic 56–77
--- NOTE | 2019-04-15 07:42 | NUR ---
HAND-OFF: Report given to ARELI Mantilla, patient in stable condition, plan of care endorsed.
[2019-04-15 07:56] LABS: BASOPHILS % (AUTO) 0.3 % (0.0-2.0); EOSINOPHILS % (AUTO) 3.4 % (0.0-3.0); HEMATOCRIT 24.9 % (37.0-47.0); HEMOGLOBIN 8.3 G/DL (12.0-16.0); MEAN CORPUSCULAR VOLUME 85 FL (80-99); MONOCYTES % (AUTO) 6.6 % (1.0-10.0); NEUTROPHILS % (AUTO) 74.7 % (45.0-75.0); PLATELET COUNT 222 K/UL (150-450); RED BLOOD COUNT 2.92 M/UL (4.20-5.40); RED CELL DISTRIBUTION WIDTH 13.7 % (11.6-14.8); WHITE BLOOD COUNT 10.1 K/UL (4.8-10.8)
[2019-04-15 08:00] LABS: ANION GAP 9 mmol/L (5-15); BLOOD UREA NITROGEN 30 mg/dL (7-18); CALCIUM 9.2 MG/DL (8.5-10.1); CARBON DIOXIDE 29 MMOL/L (21-32); CHLORIDE 99 MMOL/L (98-107); POTASSIUM 3.9 MMOL/L (3.5-5.1); SODIUM 137 MMOL/L (136-145)
[2019-04-15 08:11] LABS: INR 0.9 (0.9-1.1)
[2019-04-15] MEDS: Renvela 800mg Pkt ORAL SCH ×3 (08:31→17:06)
[2019-04-15] MEDS: Carvedilol 12.5mg tab ORAL SCH ×2 (08:31→20:32)
[2019-04-15] MEDS: Pantoprazole Inj IVP SCH ×2 (08:31→20:31)
--- NOTE | 2019-04-15 08:31 | Critical Care Progress Note ---
Assessment/Plan Assessment/Plan IMPRESSION: 1. Bleeding AV fistula, significant amount of blood loss noted. 2. Anemia due to the above. 3. End-stage renal disease. 4. Mild protein-calorie malnutrition. 5. Elevated natriuretic peptide. 6. Lactic acidemia. 7. Possible sepsis. 8. No evidence of coagulopathy. 9. Hyperkalemia. PLAN care as is antibiotics per ID HD monitor for change ICU care reviewed and discussed monitor acid base and labs nutrition with PO reviewed care in detail medications/laboratory data/nursing notes/ICU care reviewed in detail note reviewed and edited care discussed with RN and RT ICU time spent >35 minutes reviewing and coordinating care Critical Care - Subjective Interval Events: care noted reviewed and discussed now transferred to tele no further bleeding Condition: improving EKG Rhythm: Sinus Rhythm I&O: Intake and Output 04/14/19 04/15/19 19:00 07:00 Intake Total 775 ml Output Total 2175 ml Balance -1400 ml Intake Oral 300 ml IV Total 55 ml Blood Product 250 ml Other 170 ml Output Urine Total 175 ml Hemodialysis UF 2000 ml # Voids 3 Critical Care - Objective Last 24 Hour Vital Signs Date Time Temp Pulse Resp B/P (MAP) Pulse Ox O2 Delivery O2 Flow Rate FiO2 04/15/19 04:00 97.0 91 18 132/77 (95) 97 04/15/19 04:00 92 04/15/19 00:00 92 04/15/19 00:00 98.2 97 18 127/74 (91) 96 04/14/19 21:00 96 116/66 04/14/19 20:00 98.2 96 18 116/66 (83) 100 04/14/19 20:00 98 04/14/19 18:00 99 18 107/60 (76) 100 04/14/19 17:00 94 14 124/57 (79) 100 04/14/19 16:00 98.9 92 22 116/60 (78) 100 04/14/19 16:00 Room Air 04/14/19 15:56 92 04/14/19 15:00 100 21 110/60 (77) 98 04/14/19 14:00 99 14 117/58 (77) 98 04/14/19 13:00 98.8 104 16 118/61 (80) 97 04/14/19 12:00 Room Air 3/1/20 12:00 99.2 96 14 113/62 (79) 99 04/14/19 11:57 97 04/14/19 11:00 96 13 100/54 (69) 99 04/14/19 10:00 100 15 119/56 (77) 96 04/14/19 09:00 94 114/50 04/14/19 09:00 93 11 109/48 (68) 96 Labs: Labs Test 04/13/19 08:30 04/13/19 08:40 04/13/19 08:45 04/13/19 10:15 Hepatitis B Surface Antigen Negative (NEGATIVE) Prothrombin Time 11.2 SEC (9.30-11.50) Prothromb Time International Ratio 1.1 (0.9-1.1) Activated Partial Thromboplast Time 26 SEC (23-33) Sodium Level 140 MMOL/L (136-145) Potassium Level 5.7 MMOL/L (3.5-5.1) Chloride Level 103 MMOL/L (98-107) Carbon Dioxide Level 20 MMOL/L (21-32) Anion Gap 17 mmol/L (5-15) Blood Urea Nitrogen 44 mg/dL (7-18) Creatinine 9.0 MG/DL (0.55-1.30) Estimat Glomerular Filtration Rate 5.5 mL/min (>60) Glucose Level 139 MG/DL (74-106) Calcium Level 10.3 MG/DL (8.5-10.1) Magnesium Level 2.4 MG/DL (1.8-2.4) Total Bilirubin 0.3 MG/DL (0.2-1.0) Aspartate Amino Transf (AST/SGOT) 29 U/L (15-37) Alanine Aminotransferase (ALT/SGPT) 23 U/L (12-78) Alkaline Phosphatase 73 U/L (46-116) Troponin I 0.026 ng/mL (0.000-0.056) Pro-B-Type Natriuretic Peptide 1421 pg/mL (0-125) Total Protein 7.0 G/DL (6.4-8.2) Albumin 3.1 G/DL (3.4-5.0) Globulin 3.9 g/dL Albumin/Globulin Ratio 0.8 (1.0-2.7) White Blood Count 18.5 K/UL (4.8-10.8) Red Blood Count 3.25 M/UL (4.20-5.40) Hemoglobin 9.2 G/DL (12.0-16.0) Hematocrit 29.0 % (37.0-47.0) Mean Corpuscular Volume 89 FL (80-99) Mean Corpuscular Hemoglobin 28.4 PG (27.0-31.0) Mean Corpuscular Hemoglobin Concent 31.8 G/DL (32.0-36.0) Red Cell Distribution Width 13.5 % (11.6-14.8) Platelet Count 358 K/UL (150-450) Mean Platelet Volume 4.3 FL (6.5-10.1) Neutrophils (%) (Auto) % (45.0-75.0) Lymphocytes (%) (Auto) % (20.0-45.0) Monocytes (%) (Auto) % (1.0-10.0) Eosinophils (%) (Auto) % (0.0-3.0) Basophils (%) (Auto) % (0.0-2.0) Differential Total Cells Counted 100 Neutrophils % (Manual) 84 % (45-75) Lymphocytes % (Manual) 8 % (20-45) Monocytes % (Manual) 8 % (1-10) Eosinophils % (Manual) 0 % (0-3) Basophils % (Manual) 0 % (0-2) Band Neutrophils 0 % (0-8) Platelet Estimate Adequate Platelet Morphology Normal Hypochromasia 2+ Anisocytosis 1+ Lactic Acid Level 4.60 mmol/L (0.4-2.0) 5.00 mmol/L (0.66-2.22) Test 04/13/19 18:30 04/13/19 18:45 04/14/19 05:18 04/14/19 18:00 White Blood Count 15.4 K/UL (4.8-10.8) 13.2 K/UL (4.8-10.8) 11.6 K/UL (4.8-10.8) Red Blood Count 2.89 M/UL (4.20-5.40) 2.65 M/UL (4.20-5.40) 3.15 M/UL (4.20-5.40) Hemoglobin 7.8 G/DL (12.0-16.0) 7.4 G/DL (12.0-16.0) 9.0 G/DL (12.0-16.0) Hematocrit 24.6 % (37.0-47.0) 22.9 % (37.0-47.0) 26.6 % (37.0-47.0) Mean Corpuscular Volume 85 FL (80-99) 86 FL (80-99) 85 FL (80-99) Mean Corpuscular Hemoglobin 27.0 PG (27.0-31.0) 27.9 PG (27.0-31.0) 28.6 PG (27.0-31.0) Mean Corpuscular Hemoglobin Concent 31.8 G/DL (32.0-36.0) 32.4 G/DL (32.0-36.0) 33.8 G/DL (32.0-36.0) Red Cell Distribution Width 15.0 % (11.6-14.8) 13.9 % (11.6-14.8) 13.3 % (11.6-14.8) Platelet Count 249 K/UL (150-450) 253 K/UL (150-450) 242 K/UL (150-450) Mean Platelet Volume 4.9 FL (6.5-10.1) 4.2 FL (6.5-10.1) 4.4 FL (6.5-10.1) Neutrophils (%) (Auto) % (45.0-75.0) % (45.0-75.0) 78.8 % (45.0-75.0) Lymphocytes (%) (Auto) % (20.0-45.0) % (20.0-45.0) 13.7 % (20.0-45.0) Monocytes (%) (Auto) % (1.0-10.0) % (1.0-10.0) 4.7 % (1.0-10.0) Eosinophils (%) (Auto) % (0.0-3.0) % (0.0-3.0) 2.7 % (0.0-3.0) Basophils (%) (Auto) % (0.0-2.0) % (0.0-2.0) 0.1 % (0.0-2.0) Differential Total Cells Counted 100 100 Neutrophils % (Manual) 85 % (45-75) 80 % (45-75) Lymphocytes % (Manual) 11 % (20-45) 12 % (20-45) Monocytes % (Manual) 4 % (1-10) 6 % (1-10) Eosinophils % (Manual) 0 % (0-3) 2 % (0-3) Basophils % (Manual) 0 % (0-2) 0 % (0-2) Band Neutrophils 0 % (0-8) 0 % (0-8) Platelet Estimate Adequate Adequate Platelet Morphology Normal Normal Hypochromasia 2+ 3+ Anisocytosis 1+ 1+ Lactic Acid Level 0.50 mmol/L (0.4-2.0) Sodium Level 137 MMOL/L (136-145) 138 MMOL/L (136-145) Potassium Level 5.6 MMOL/L (3.5-5.1) 2.9 MMOL/L (3.5-5.1) Chloride Level 103 MMOL/L (98-107) 99 MMOL/L (98-107) Carbon Dioxide Level 25 MMOL/L (21-32) 28 MMOL/L (21-32) Anion Gap 10 mmol/L (5-15) 11 mmol/L (5-15) Blood Urea Nitrogen 58 mg/dL (7-18) 23 mg/dL (7-18) Creatinine 10.5 MG/DL (0.55-1.30) 4.2 MG/DL (0.55-1.30) Estimat Glomerular Filtration Rate 4.5 mL/min (>60) 13.0 mL/min (>60) Glucose Level 102 MG/DL (74-106) 114 MG/DL (74-106) Calcium Level 9.5 MG/DL (8.5-10.1) 8.8 MG/DL (8.5-10.1) Total Bilirubin 0.3 MG/DL (0.2-1.0) Aspartate Amino Transf (AST/SGOT) 8 U/L (15-37) Alanine Aminotransferase (ALT/SGPT) 15 U/L (12-78) Alkaline Phosphatase 47 U/L (46-116) Total Protein 6.0 G/DL (6.4-8.2) Albumin 2.5 G/DL (3.4-5.0) Globulin 3.5 g/dL Albumin/Globulin Ratio 0.7 (1.0-2.7) Test 04/14/19 19:30 04/15/19 05:40 Sodium Level 136 MMOL/L (136-145) 137 MMOL/L (136-145) Potassium Level 4.7 MMOL/L (3.5-5.1) 3.9 MMOL/L (3.5-5.1) Chloride Level 98 MMOL/L (98-107) 99 MMOL/L (98-107) Carbon Dioxide Level 27 MMOL/L (21-32) 29 MMOL/L (21-32) Anion Gap 12 mmol/L (5-15) 9 mmol/L (5-15) Blood Urea Nitrogen 24 mg/dL (7-18) 30 mg/dL (7-18) Creatinine 5.3 MG/DL (0.55-1.30) 7.0 MG/DL (0.55-1.30) Estimat Glomerular Filtration Rate 9.9 mL/min (>60) 7.2 mL/min (>60) Glucose Level 98 MG/DL (74-106) 73 MG/DL (74-106) Calcium Level 8.7 MG/DL (8.5-10.1) 9.2 MG/DL (8.5-10.1) Total Bilirubin 0.4 MG/DL (0.2-1.0) Aspartate Amino Transf (AST/SGOT) 33 U/L (15-37) Alanine Aminotransferase (ALT/SGPT) 20 U/L (12-78) Alkaline Phosphatase 57 U/L (46-116) Total Protein 5.9 G/DL (6.4-8.2) Albumin 2.5 G/DL (3.4-5.0) Globulin 3.4 g/dL Albumin/Globulin Ratio 0.7 (1.0-2.7) White Blood Count 10.1 K/UL (4.8-10.8) Red Blood Count 2.92 M/UL (4.20-5.40) Hemoglobin 8.3 G/DL (12.0-16.0) Hematocrit 24.9 % (37.0-47.0) Mean Corpuscular Volume 85 FL (80-99) Mean Corpuscular Hemoglobin 28.3 PG (27.0-31.0) Mean Corpuscular Hemoglobin Concent 33.3 G/DL (32.0-36.0) Red Cell Distribution Width 13.7 % (11.6-14.8) Platelet Count 222 K/UL (150-450) Mean Platelet Volume 4.2 FL (6.5-10.1) Neutrophils (%) (Auto) 74.7 % (45.0-75.0) Lymphocytes (%) (Auto) 15.0 % (20.0-45.0) Monocytes (%) (Auto) 6.6 % (1.0-10.0) Eosinophils (%) (Auto) 3.4 % (0.0-3.0) Basophils (%) (Auto) 0.3 % (0.0-2.0) Random Vancomycin Level 14.8 ug/mL Objective: GENERAL: A well-developed female, appears to be chronically ill. NAD HEENT: Overall negative. NECK: Supple. No adenopathy LUNGS: Good air entry overall. without rhonchi or wheeze CARDIAC: S1 and S2. Regular rate and rhythm without murmurs, rubs, gallops. ABDOMEN: Soft, nontender, nondistended. EXTREMITIES: No cyanosis or clubbing. No edema. Left upper extremity fistula noted with mild bulging. NEURO: nonfocal Micro: Microbiology Date/Time Source Procedure Growth Status 04/14/19 05:33 Blood Blood Culture - Preliminary NO GROWTH AFTER 24 HOURS Resulted 04/14/19 05:18 Blood Blood Culture - Preliminary NO GROWTH AFTER 24 HOURS Resulted 04/13/19 10:15 Blood Blood Culture - Preliminary NO GROWTH AFTER 24 HOURS Resulted 04/13/19 10:00 Blood Blood Culture - Preliminary NO GROWTH AFTER 24 HOURS Resulted 04/13/19 11:20 Rectum - Final NO CARBAPENEM-RESISTANT ENTEROBACTERI... Complete 04/13/19 11:20 Rectum VRE Culture - Final Enterococcus Faecium - Vre Enterococcus Faecalis - Vre Complete Eric Earl MD Apr 15, 2019 08:31
--- NOTE | 2019-04-15 09:10 | NUR ---
NURSE NOTES: Patient noted with order for Lasix 160 mg IV Q6HR. Patient is a hemodialysis patient. Contacted Dr. Earl for clarification of order. Dr. Earl acknowledged and instructed this nurse to call Dr. [place] for clarification. Noted. Charge nurse made aware.
[2019-04-15] MEDS ORDERED: fentaNYL 100 mcg/2 mL IV ONE (09:31)
[2019-04-15] MEDS: Cefepime HCl 1 GM in D5W 55 ML IVPB SCH (09:34)
[2019-04-15] MEDS ORDERED: Propofol 200mg/20ml IV ONE (10:17)
[2019-04-15] MEDS ORDERED: Lidocaine 1% MPF 10mg/ml 5ml ONE (10:17)
[2019-04-15] MEDS ORDERED: Heparin 5000 units/ml inj ONE (10:48)
[2019-04-15] MEDS ORDERED: Bacitracin Oint 15gm Tube TOPIC ONE (10:48)
[2019-04-15] MEDS ORDERED: Bupivacaine 0.5% Inj 30 ml vial INJ ONE (10:48)
[2019-04-15] MEDS ORDERED: Iothalamate Meglumine 60% 50ML INJ ONE (10:48)
[2019-04-15] MEDS ORDERED: Lidocaine 1% Plain 30 ml INJ ONE (10:48)
[2019-04-15] MEDS ORDERED: Bacitracin 50000 Units Vial ONE (10:49)
[2019-04-15] MEDS ORDERED: NS Irrig 1000ml ONE (11:02)
[2019-04-15] MEDS ORDERED: Sterile Water Irrig 1000ml IRRIG ONE (11:02)
--- NOTE | 2019-04-15 11:10 | Infectious Diseases Prog Note ---
Assessment/Plan Assessment/Plan antibiotics : vancomycin iv, cefepime A 1. leucocytosis improving 2. renal failure on dialysis 3. hypertension 4, cardiomyopathy 5. CVA P 1. continue iv vancomycin, cefepime 2. will follow up cultures Subjective ROS Limited/Unobtainable: Yes Allergies: Coded Allergies: ASPIRIN (Unverified Allergy, Unknown, 04/13/19) PENICILLINS (Unverified Allergy, Unknown, 04/13/19) Objective Vital Signs Last 24 Hour Vital Signs Date Time Temp Pulse Resp B/P (MAP) Pulse Ox O2 Delivery O2 Flow Rate FiO2 04/15/19 08:31 86 120/64 04/15/19 08:00 98.6 86 18 120/64 (82) 98 04/15/19 08:00 95 04/15/19 04:00 97.0 91 18 132/77 (95) 97 04/15/19 04:00 92 04/15/19 00:00 92 04/15/19 00:00 98.2 97 18 127/74 (91) 96 04/14/19 21:00 96 116/66 04/14/19 20:00 98.2 96 18 116/66 (83) 100 04/14/19 20:00 98 04/14/19 18:00 99 18 107/60 (76) 100 04/14/19 17:00 94 14 124/57 (79) 100 04/14/19 16:00 98.9 92 22 116/60 (78) 100 04/14/19 16:00 Room Air 04/14/19 15:56 92 04/14/19 15:00 100 21 110/60 (77) 98 04/14/19 14:00 99 14 117/58 (77) 98 04/14/19 13:00 98.8 104 16 118/61 (80) 97 04/14/19 12:00 Room Air 04/14/19 12:00 99.2 96 14 113/62 (79) 99 04/14/19 11:57 97 Height (Feet): 5 Height (Inches): 7.00 Weight (Pounds): 202 Respiratory/Chest: lungs clear Cardiovascular: normal rate, regular rhythm, no gallop/murmur Abdomen: soft, non tender Extremities: no edema Microbiology Date/Time Source Procedure Growth Status 04/14/19 05:33 Blood Blood Culture - Preliminary NO GROWTH AFTER 24 HOURS Resulted 04/14/19 05:18 Blood Blood Culture - Preliminary NO GROWTH AFTER 24 HOURS Resulted 04/13/19 10:15 Blood Blood Culture - Preliminary NO GROWTH AFTER 24 HOURS Resulted 04/13/19 10:00 Blood Blood Culture - Preliminary NO GROWTH AFTER 24 HOURS Resulted 04/13/19 11:20 Nasal Nares MRSA Culture - Final NO METHICILLIN RESISTANT STAPH AUREUS... Complete 04/13/19 11:20 Rectum - Final NO CARBAPENEM-RESISTANT ENTEROBACTERI... Complete 04/13/19 11:20 Rectum VRE Culture - Final Enterococcus Faecium - Vre Enterococcus Faecalis - Vre Complete Laboratory Tests Test 04/14/19 18:00 04/14/19 19:30 04/15/19 05:40 White Blood Count 11.6 K/UL (4.8-10.8) H 10.1 K/UL (4.8-10.8) Red Blood Count 3.15 M/UL (4.20-5.40) L 2.92 M/UL (4.20-5.40) L Hemoglobin 9.0 G/DL (12.0-16.0) L 8.3 G/DL (12.0-16.0) L Hematocrit 26.6 % (37.0-47.0) L 24.9 % (37.0-47.0) L Mean Corpuscular Volume 85 FL (80-99) 85 FL (80-99) Mean Corpuscular Hemoglobin 28.6 PG (27.0-31.0) 28.3 PG (27.0-31.0) Mean Corpuscular Hemoglobin Concent 33.8 G/DL (32.0-36.0) 33.3 G/DL (32.0-36.0) Red Cell Distribution Width 13.3 % (11.6-14.8) 13.7 % (11.6-14.8) Platelet Count 242 K/UL (150-450) 222 K/UL (150-450) Mean Platelet Volume 4.4 FL (6.5-10.1) L 4.2 FL (6.5-10.1) L Neutrophils (%) (Auto) 78.8 % (45.0-75.0) H 74.7 % (45.0-75.0) Lymphocytes (%) (Auto) 13.7 % (20.0-45.0) L 15.0 % (20.0-45.0) L Monocytes (%) (Auto) 4.7 % (1.0-10.0) 6.6 % (1.0-10.0) Eosinophils (%) (Auto) 2.7 % (0.0-3.0) 3.4 % (0.0-3.0) H Basophils (%) (Auto) 0.1 % (0.0-2.0) 0.3 % (0.0-2.0) Sodium Level 138 MMOL/L (136-145) 136 MMOL/L (136-145) 137 MMOL/L (136-145) Potassium Level 2.9 MMOL/L (3.5-5.1) L 4.7 MMOL/L (3.5-5.1) # 3.9 MMOL/L (3.5-5.1) Chloride Level 99 MMOL/L (98-107) 98 MMOL/L (98-107) 99 MMOL/L (98-107) Carbon Dioxide Level 28 MMOL/L (21-32) 27 MMOL/L (21-32) 29 MMOL/L (21-32) Anion Gap 11 mmol/L (5-15) 12 mmol/L (5-15) 9 mmol/L (5-15) Blood Urea Nitrogen 23 mg/dL (7-18) H 24 mg/dL (7-18) H 30 mg/dL (7-18) H Creatinine 4.2 MG/DL (0.55-1.30) #H 5.3 MG/DL (0.55-1.30) H 7.0 MG/DL (0.55-1.30) H Estimat Glomerular Filtration Rate 13.0 mL/min (>60) 9.9 mL/min (>60) 7.2 mL/min (>60) Glucose Level 114 MG/DL (74-106) H 98 MG/DL (74-106) 73 MG/DL (74-106) L Calcium Level 8.8 MG/DL (8.5-10.1) 8.7 MG/DL (8.5-10.1) 9.2 MG/DL (8.5-10.1) Total Bilirubin 0.4 MG/DL (0.2-1.0) Aspartate Amino Transf (AST/SGOT) 33 U/L (15-37) Alanine Aminotransferase (ALT/SGPT) 20 U/L (12-78) Alkaline Phosphatase 57 U/L (46-116) Total Protein 5.9 G/DL (6.4-8.2) L Albumin 2.5 G/DL (3.4-5.0) L Globulin 3.4 g/dL Albumin/Globulin Ratio 0.7 (1.0-2.7) L Prothrombin Time 10.1 SEC (9.30-11.50) Prothromb Time International Ratio 0.9 (0.9-1.1) Activated Partial Thromboplast Time 28 SEC (23-33) Random Vancomycin Level 14.8 ug/mL Current Medications Medications (Trade) Dose Ordered Sig/Chris Route PRN Reason Start Time Stop Time Status Last Admin Dose Admin Acetaminophen (Tylenol) 500 mg Q6H PRN ORAL Mild Pain/Temp > 100.5 04/14/19 20:00 05/13/19 19:59 Acetaminophen (Tylenol) 650 mg Q6H PRN ORAL Mild Pain/Temp > 100.5 04/14/19 22:00 05/14/19 21:59 Carvedilol (Coreg) 12.5 mg EVERY 12 HOURS ORAL 04/14/19 21:00 05/13/19 20:59 04/15/19 08:31 Cefepime HCl 1 gm/ Dextrose 55 ml @ 110 mls/hr Q24H IVPB 04/15/19 10:00 04/21/19 09:59 04/15/19 09:34 Diphenhydramine HCl (Benadryl) 25 mg Q6H PRN ORAL Itching 04/14/19 20:00 05/13/19 19:59 Furosemide (Lasix) 160 mg Q6HR IV 04/15/19 00:00 05/13/19 17:59 04/15/19 06:10 Ondansetron HCl (Zofran) 4 mg Q6H PRN IVP Nausea & Vomiting 04/14/19 20:00 05/14/19 19:59 Pantoprazole (Protonix) 40 mg EVERY 12 HOURS IVP 04/14/19 21:00 3/30/20 20:59 04/15/19 08:31 Sevelamer Carbonate (Renvela) 800 mg THREE TIMES A DAY ORAL 04/15/19 09:00 05/13/19 17:59 04/15/19 08:31 Sodium Chloride 1,000 ml @ 500 mls/hr Q2H PRN IVLG sbp<90 during hd 04/14/19 19:45 05/14/19 16:30 Vancomycin HCl (Vanco rx to dose) 1 ea DAILY PRN MISC Per rx protocol 04/15/19 09:00 05/13/19 20:59 Vancomycin/Sodium Chloride 275 ml @ 137.5 mls/ hr ONCE ONCE IVPB 04/15/19 14:00 04/15/19 15:59 Madeline Shetty MD Apr 15, 2019 11:10
--- NOTE | 2019-04-15 11:12 | Pre-Procedure Note/Attestation ---
Pre-Procedure Note/Attestation Complete Prior to Procedure Planned Procedure: left Procedure Narrative: left arm fistulogram and dialysis catheter placement Indications for Procedure Pre-Operative Diagnosis: bleeding shunt; ESRD Attestation I attest that I discussed the nature of the procedure; its benefits; risks and complications; and alternatives (and the risks and benefits of such alternatives ), prior to the procedure, with the patient (or the patient's legal inbound call center representative). I attest that, if there was a reasonable possibility of needing a blood transfusion, the patient (or the patient's legal inbound call center representative) was given the [facility] [place] [facility] standardized written summary, pursuant to the [place] Blood Safety Act ([place] Health and Safety Code # 1645, as amended). I attest that I re-evaluated the patient just prior to the surgery and that there has been no change in the patient's H&P, except as documented below: Davide Gomez MD Apr 15, 2019 11:12
[2019-04-15] MEDS ORDERED: NS 500ML IVPB ONE (11:28)
[2019-04-15] MEDS ORDERED: NS Irrig 1000ml IRRIG ONE (11:28)
--- NOTE | 2019-04-15 11:49 | Anethesia Preoperative Eval ---
Anesthesia Pre-op PMH/ROS General Date of Evaluation: Apr 15, 2019 Time of Evaluation: 10:58 Anesthesiologist: Sushma ASA Score: ASA 3 Mallampati Score Class I : Soft palate, uvula, fauces, pillars visible Class II: Soft palate, uvula, fauces visible Class III: Soft palate, base of uvula visible Class IV: Only hard plate visible Mallampati Classification: Class III Surgeon: Patricia Diagnosis: Malfunctioning A-V shunt Surgical Procedure: A-V shunt revision dialysis catheter placement Anesthesia History: none Family History: no anesthesia problems Allergies: Coded Allergies: ASPIRIN (Unverified Allergy, Unknown, 04/13/19) PENICILLINS (Unverified Allergy, Unknown, 04/13/19) Medications: see eMAR Patient NPO?: Yes NPO Date: Apr 15, 2019 NPO Time: 0000 Past Medical History Cardiovascular: Reports: HTN; Denies: CAD, DE, valve dz, arrhythmia, other Pulmonary: Reports: ADOLPH; Denies: asthma, COPD, other Gastrointestinal/Genitourinary: Reports: GERD, ESRD - on HD last session ; Denies: CRI, other Neurologic/Psychiatric: Reports: CVA, depression/anxiety Endocrine: Denies: DM, hypothyroidism, steroids, other HEENT: Denies: cataract (L), cataract (R), glaucoma, ANVIK (L), ANVIK (R), other Hematology/Immune: Reports: anemia; Denies: DVT, bleeding disorder, other Musculoskeletal/Integumentary: Reports: OA; Denies: RA, DJD, DDD, edema, other Other: obesity PMH Narrative: as above PSxH Narrative: A-V shunt placement Anesthesia Pre-op Phys. Exam Physician Exam Last Vital Signs Date Time Temp Pulse Resp B/P (MAP) Pulse Ox O2 Delivery O2 Flow Rate FiO2 04/15/19 08:31 86 120/64 04/15/19 08:00 98.6 18 98 04/14/19 16:00 Room Air 04/14/19 04:00 2.0 Constitutional: NAD Neurologic: other - unable to obtaine Cardiovascular: RRR Respiratory: CTA Gastrointestinal: other - obesity Airway Exam Mallampati Score: Class III MO: limited Neck: short ROM: limited Teeth: missing Dentures: no upper, no lower Anesthesia Pre-op A/P Labs Hematology Test 04/14/19 18:00 04/15/19 05:40 White Blood Count 11.6 K/UL (4.8-10.8) H 10.1 K/UL (4.8-10.8) Red Blood Count 3.15 M/UL (4.20-5.40) L 2.92 M/UL (4.20-5.40) L Hemoglobin 9.0 G/DL (12.0-16.0) L 8.3 G/DL (12.0-16.0) L Hematocrit 26.6 % (37.0-47.0) L 24.9 % (37.0-47.0) L Mean Corpuscular Volume 85 FL (80-99) 85 FL (80-99) Mean Corpuscular Hemoglobin 28.6 PG (27.0-31.0) 28.3 PG (27.0-31.0) Mean Corpuscular Hemoglobin Concent 33.8 G/DL (32.0-36.0) 33.3 G/DL (32.0-36.0) Red Cell Distribution Width 13.3 % (11.6-14.8) 13.7 % (11.6-14.8) Platelet Count 242 K/UL (150-450) 222 K/UL (150-450) Mean Platelet Volume 4.4 FL (6.5-10.1) L 4.2 FL (6.5-10.1) L Neutrophils (%) (Auto) 78.8 % (45.0-75.0) H 74.7 % (45.0-75.0) Lymphocytes (%) (Auto) 13.7 % (20.0-45.0) L 15.0 % (20.0-45.0) L Monocytes (%) (Auto) 4.7 % (1.0-10.0) 6.6 % (1.0-10.0) Eosinophils (%) (Auto) 2.7 % (0.0-3.0) 3.4 % (0.0-3.0) H Basophils (%) (Auto) 0.1 % (0.0-2.0) 0.3 % (0.0-2.0) Coagulation Test 3/2/20 05:40 Prothrombin Time 10.1 SEC (9.30-11.50) Prothromb Time International Ratio 0.9 (0.9-1.1) Activated Partial Thromboplast Time 28 SEC (23-33) Chemistry Test 04/14/19 18:00 04/14/19 19:30 04/15/19 05:40 Sodium Level 138 MMOL/L (136-145) 136 MMOL/L (136-145) 137 MMOL/L (136-145) Potassium Level 2.9 MMOL/L (3.5-5.1) L 4.7 MMOL/L (3.5-5.1) # 3.9 MMOL/L (3.5-5.1) Chloride Level 99 MMOL/L (98-107) 98 MMOL/L (98-107) 99 MMOL/L (98-107) Carbon Dioxide Level 28 MMOL/L (21-32) 27 MMOL/L (21-32) 29 MMOL/L (21-32) Anion Gap 11 mmol/L (5-15) 12 mmol/L (5-15) 9 mmol/L (5-15) Blood Urea Nitrogen 23 mg/dL (7-18) H 24 mg/dL (7-18) H 30 mg/dL (7-18) H Creatinine 4.2 MG/DL (0.55-1.30) #H 5.3 MG/DL (0.55-1.30) H 7.0 MG/DL (0.55-1.30) H Estimat Glomerular Filtration Rate 13.0 mL/min (>60) 9.9 mL/min (>60) 7.2 mL/min (>60) Glucose Level 114 MG/DL (74-106) H 98 MG/DL (74-106) 73 MG/DL (74-106) L Calcium Level 8.8 MG/DL (8.5-10.1) 8.7 MG/DL (8.5-10.1) 9.2 MG/DL (8.5-10.1) Total Bilirubin 0.4 MG/DL (0.2-1.0) Aspartate Amino Transf (AST/SGOT) 33 U/L (15-37) Alanine Aminotransferase (ALT/SGPT) 20 U/L (12-78) Alkaline Phosphatase 57 U/L (46-116) Total Protein 5.9 G/DL (6.4-8.2) L Albumin 2.5 G/DL (3.4-5.0) L Globulin 3.4 g/dL Albumin/Globulin Ratio 0.7 (1.0-2.7) L Risk Assessment & Plan Assessment: ASA 3 Plan: GA with LMA Status Change Before Surgery: No Pre-Antibiotics Drug: As scheduled Omid Ordaz MD Apr 15, 2019 11:49
[2019-04-15] MEDS ORDERED: fentaNYL 100 mcg/2 mL IV PRN (12:00)
--- NOTE | 2019-04-15 12:00 | NUR ---
NURSE NOTES: Called and left message with Dr. Canada regarding order clarification of Lasix 160 mg IV Q6HR as that patient is a hemodialysis patient. Awaiting call back. Patient still of unit, with procedure with Dr. Gomez. Noted.
--- NOTE | 2019-04-15 12:23 | NUR ---
CASE MANAGEMENT:REVIEW 63 YR OLD FEMALE BIBA FROM HOME PMH: ESRD ON HD CC:LUE FISTULA BLEEDING SI: HEMORRHAGIC SHOCK. SEPSIS 97.9 88 18 137/107 98% ON RA WBC+18.5 H/H-7.8/24.6 K+5.7 BUN+44 CR+9.0 IS 250CC NS BOLUS X2 IV GENTAMICIN IV CEFEPIME IV VANCOMYCIN 1L NS BLOOD CX CXR : TO TELEMETRY DCP: FROM HOME
[2019-04-15] MEDS ORDERED: Isovue-M 300 15ml INJ ONE (12:42)
[2019-04-15] MEDS ORDERED: Heparin 1000 units/ml 1ml Vial ONE (13:07)
[2019-04-15] MEDS ORDERED: Heparin Sod 1000 units/ml 10ml ONE (13:07)
--- NOTE | 2019-04-15 13:29 | Brief Operative Note ---
Immediate Post Operative Note Operative Note Pre-op Diagnosis: bleeding shunt; ESRD Procedure: left arm fistulogram and [employer]; placement of right IJ PermCath Post-op Diagnosis: same as pre-op plus - see report Findings: consistent w/pre-op dx studies Surgeon: Harmony Gomez Anesthesiologist: Martha Ordaz Anesthesia: general Specimen: none Complications: none Condition: stable Fluids: see anesth. record Estimated Blood Loss: minimal Drains: none Implant(s) used?: Yes - Davide Mahmood MD Apr 15, 2019 13:29
[2019-04-15] MEDS ORDERED: Vancomycin 1.5gm/NS Premix q24h IVPB ONE ×2 (14:00→20:00)
--- NOTE | 2019-04-15 14:23 | NUR ---
NURSE NOTES: Second call to Dr. Canada regarding order clarification of Lasix 160 mg IV Q6HR as that patient is a hemodialysis patient. Awaiting call back. Patient still of unit for procedure with Dr. Gomez. Noted.
--- NOTE | 2019-04-15 14:52 | NUR ---
NURSE NOTES: Dr. Canada called back nurse station and made aware of Lasix 160 mg IV Q6HR and patient is on hemodialysis, and that this nurse was instructed to call them for order clarification. Dr. Canada acknowledged and ordered to cancel Lasix order. Noted.
--- NOTE | 2019-04-15 15:03 | Diagnostic Imaging Report ---
Indication: Status post permacath Comparison: None A single view chest radiograph was obtained. Findings: There is a right jugular permacath present. The tip projects over the SVC right atrial junction. The lungs are clear. Heart is enlarged. Aorta is mildly ectatic. There is no pneumothorax. Bones are unremarkable. IMPRESSION: Right permacath in good position.
--- NOTE | 2019-04-15 15:15 | NUR ---
NURSE NOTES: Patient returned to unit from surgery. ARELI Watson gave report to this nurse. Per ARELI Watson Left upper extremity fistulogram and permacath placement was performed on patient. Per ARELI Watson patient can eat now. VS on arrival: BP 119/65 HR 85 bpm, 18 RR, SpO2 95%, Temp 98.1F. Noted. Will continue to monitor patient.
--- NOTE | 2019-04-15 16:51 | Nephrology Progress Note ---
Assessment/Plan Problem List: (1) AVF (arteriovenous fistula) Assessment: s/p bleed with collapsed bullae, possible occult infection (2) End stage renal disease on dialysis (3) Hemorrhagic shock Plan HD 04/13 , d/w dr santos to place permcath to rest avf done, HD 04/15 Subjective Constitutional: Reports: weakness HEENT: Reports: no symptoms Genitourinary: Reports: no symptoms Neurologic/Psychiatric: Reports: pre-existing deficit Objective Objective Last 24 Hour Vital Signs Date Time Temp Pulse Resp B/P (MAP) Pulse Ox O2 Delivery O2 Flow Rate FiO2 04/15/19 15:15 81 17 121/63 98 Room Air 81 04/15/19 14:30 97.2 80 15 117/65 98 Room Air 80 04/15/19 14:15 81 18 120/66 97 Room Air 81 04/15/19 14:00 83 14 121/60 98 Room Air 83 04/15/19 13:45 80 17 110/61 96 Room Air 80 04/15/19 13:36 82 18 108/60 100 Simple Mask 6 04/15/19 13:31 81 18 103/56 100 Simple Mask 6 04/15/19 13:26 97.8 86 22 116/74 100 Simple Mask 6 04/15/19 08:31 86 120/64 04/15/19 08:00 98.6 86 18 120/64 (82) 98 04/15/19 08:00 95 04/15/19 04:00 97.0 91 18 132/77 (95) 97 04/15/19 04:00 92 04/15/19 00:00 92 04/15/19 00:00 98.2 97 18 127/74 (91) 96 04/14/19 21:00 96 116/66 04/14/19 20:00 98.2 96 18 116/66 (83) 100 04/14/19 20:00 98 04/14/19 18:00 99 18 107/60 (76) 100 04/14/19 17:00 94 14 124/57 (79) 100 Intake and Output 04/14/19 04/15/19 19:00 07:00 Intake Total 775 ml Output Total 2175 ml Balance -1400 ml Intake Oral 300 ml IV Total 55 ml Blood Product 250 ml Other 170 ml Output Urine Total 175 ml Hemodialysis UF 2000 ml # Voids 3 Laboratory Tests 04/14/19 18:00: White Blood Count 11.6H, Red Blood Count 3.15L, Hemoglobin 9.0L, Hematocrit 26.6L, Mean Corpuscular Volume 85, Mean Corpuscular Hemoglobin 28.6, Mean Corpuscular Hemoglobin Concent 33.8, Red Cell Distribution Width 13.3, Platelet Count 242, Mean Platelet Volume 4.4L, Neutrophils (%) (Auto) 78.8H, Lymphocytes (%) (Auto) 13.7L, Monocytes (%) (Auto) 4.7, Eosinophils (%) (Auto) 2.7, Basophils (%) (Auto) 0.1, Sodium Level 138, Potassium Level 2.9L, Chloride Level 99, Carbon Dioxide Level 28, Anion Gap 11, Blood Urea Nitrogen 23H, Creatinine 4.2#H, Estimat Glomerular Filtration Rate 13.0, Glucose Level 114H, Calcium Level 8.8 04/14/19 19:30: Sodium Level 136, Potassium Level 4.7#, Chloride Level 98, Carbon Dioxide Level 27, Anion Gap 12, Blood Urea Nitrogen 24H, Creatinine 5.3H, Estimat Glomerular Filtration Rate 9.9, Glucose Level 98, Calcium Level 8.7, Total Bilirubin 0.4, Aspartate Amino Transf (AST/SGOT) 33, Alanine Aminotransferase (ALT/SGPT) 20, Alkaline Phosphatase 57, Total Protein 5.9L, Albumin 2.5L, Globulin 3.4, Albumin /Globulin Ratio 0.7L 04/15/19 05:40: White Blood Count 10.1, Red Blood Count 2.92L, Hemoglobin 8.3L, Hematocrit 24.9L , Mean Corpuscular Volume 85, Mean Corpuscular Hemoglobin 28.3, Mean Corpuscular Hemoglobin Concent 33.3, Red Cell Distribution Width 13.7, Platelet Count 222, Mean Platelet Volume 4.2L, Neutrophils (%) (Auto) 74.7, Lymphocytes ( %) (Auto) 15.0L, Monocytes (%) (Auto) 6.6, Eosinophils (%) (Auto) 3.4H, Basophils (%) (Auto) 0.3, Sodium Level 137, Potassium Level 3.9, Chloride Level 99, Carbon Dioxide Level 29, Anion Gap 9, Blood Urea Nitrogen 30H, Creatinine 7.0H, Estimat Glomerular Filtration Rate 7.2, Glucose Level 73L, Calcium Level 9.2, Prothrombin Time 10.1, Prothromb Time International Ratio 0.9, Activated Partial Thromboplast Time 28, Random Vancomycin Level 14.8 Height (Feet): 5 Height (Inches): 7.00 Weight (Pounds): 202 General Appearance: obese EENT: normal ENT inspection Neck: normal alignment Cardiovascular: normal rate, regular rhythm Respiratory/Chest: lungs clear, normal breath sounds Abdomen: non tender, soft Extremities: no edema 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
--- NOTE | 2019-04-15 17:20 | NUR ---
NURSE NOTES: Called [facility] and spoke with Shirley. Informed Shirley that there is order for hemodialysis for patient tomorrow, 04/16/2019. Shirley acknowledged. Noted. Logged in Dialysis folder.
--- NOTE | 2019-04-15 18:51 | NUR ---
NURSE NOTES: Called and informed Dr. Balbuena to inform MD that patient's new right upper chest permacath site 4x4 dressing noted half saturated with blood. Noted with no dressing instructions at this time. Dr. Gomez acknowledged and ordered "change right upper chest permacath dressing, clean with site with betadine, cover with 4 x 4 gauze, cover with tegaderm." Order entered, noted, and carried out. Will continue to monitor patient. Addendum: 04/15/19 at 1858 by JENA LAWLER RN NURSE NOTES: Addendum: "PRN change right upper chest permacath dressing, clean site with betadine, cover with 4 x 4 gauze, cover with tegaderm."
--- NOTE | 2019-04-15 19:15 | NUR ---
NURSE NOTES: Received pt and report from [facility] Mantilla. Observed pt resting in bed with both eyes closed; arousable to voice. Pt is A/Ox3. accounts receivable accountant is in placed; pt is NSR. IV site intact, asymptomatic, and patent. Bed is in the lowest position and locked. Call light and bedside table is within reach. No signs/symptoms of acute distress noted at this time. Will continue plan of care.
--- NOTE | 2019-04-15 19:29 | NUR ---
HAND-OFF: Report given to [facility] Anaya.
--- NOTE | 2019-04-15 21:00 | Operative Note - Dictated ---
DATE OF OPERATION: 04/15/2019 PREOPERATIVE DIAGNOSES: 1. Bleeding dialysis shunt in the left upper extremity. 2. End-stage renal disease. POSTOPERATIVE DIAGNOSES: 1. Bleeding dialysis shunt in the left upper extremity. 2. End-stage renal disease as well as findings below. PROCEDURES: 1. Left arterialized basilic vein dialysis arteriovenous fistula access and introducer sheath placement in the venous outflow direction. 2. Catheterization via AV fistula with the catheter tip in the left innominate vein. 3. Left arm dialysis fistulogram. 4. Selective superior vena cavogram. 5. Percutaneous transluminal balloon angioplasty (BURN OUT SCARFING OPERATOR) of the AV shunt (8 mm x 4 cm balloon). 6. BURN OUT SCARFING OPERATOR of the left axillary vein (8 mm x 4 cm and 10 mm x 4 cm balloons). 7. BURN OUT SCARFING OPERATOR of the left subclavian vein (10 mm x 4 cm balloon). 8. BURN OUT SCARFING OPERATOR of the left innominate vein (10 mm x 4 cm balloon). 9. Primary surgical repair of the arterialized basilic vein dialysis arteriovenous fistula access site. 10. Placement of a tunneled dialysis catheter (PermCath) via right internal jugular vein. 11. Intraoperative ultrasound. 12. Digital subtraction angiography. 13. Supervision and interpretation of angiogram and intervention. SURGEON: Zenia Bernstein M.D. ANESTHESIA: General via LMA. ANESTHESIOLOGIST: Omid Ordaz M.D. INDICATION: The patient presented with bleeding from the AV shunt and was managed by the emergency room staff and then admitted for observation and optimized for further intervention. The patient has areas of scab formation overlying the AV fistula. Alternative dialysis access was recommended to allow the fistula to heal and also underlying cause of the bleeding was also to be investigated with this fistulogram. INTRAOPERATIVE FINDINGS/INTERPRETATION OF RESULTS: The inflow from brachial artery anastomosis is widely patent. The outflow from the transposed vein is patent; however, at the junction with the axillary vein, there is moderate stenosis. The subclavian vein is patent although at the junction of the innominate vein, there is mild stenosis beyond which the remainder of the innominate vein and superior vena cava are widely patent. Post intervention, the treated segments are now widely patent. There was a good thrill in the AV fistula. A brisk flow of contrast was noted from the AV fistula into the central veins on the completion angiogram. The right internal jugular vein was patent and the Perm catheter was placed as described below with the tip at the atriocaval junction with good venous blood return from both ports in the catheter. The patient remained hemodynamically stable throughout the procedure and a chest x-ray was ordered postoperatively to rule out hemopneumothorax. PROCEDURE IN DETAIL: With the patient in supine position and after the left upper extremity and later the upper chest and neck areas were prepped and draped in usual sterile fashion, skin was infiltrated with local anesthetic and the AV fistula accessed on the venous side near the arterial anastomosis with a micropuncture needle using a single wall puncture modified Seldinger technique. A wire was advanced in the venous outflow direction and the needle removed. Over the wire, the micropuncture introducer sheath with dilator was placed coaxially over the wire into the vessel and the wire and dilator were removed. Good arterial backbleeding was noted from the sheath, which was flushed with heparinized saline and then serial boluses of contrast were administered for digital subtraction images. The inflow and the outflow and the above findings were noted. The sheath was exchanged over the wire for a 6-Telugu regular sheath in a standard fashion and then once the wire was placed across the stenotic segments to be treated, they were dilated with balloon catheter as listed above. Completion angiogram showed satisfactory results and therefore, the sheath was removed and the puncture sites repaired with primary suture of 5-0 Prolene with good hemostasis obtained. Sterile dressings were applied. The patient was then placed in the Trendelenburg position and under ultrasound and fluoroscopic guidance, the right internal jugular vein was accessed with a micropuncture needle using a single wall puncture modified Seldinger technique through a posterior approach to the right sternocleidomastoid muscle. The right internal jugular vein was entered and the wire advanced and followed into the vena cava under fluoroscopy. The needle was removed and over the wire, the micropuncture introducer sheath was placed coaxially into the vessel and the wire and the dilator were removed with good venous blood return was obtained from the sheath, which was flushed and a wire placed over which serial dilators were applied to dilate the tract. After infiltration of the skin with local anesthetic, two stab incisions were made, one at the puncture site in the skin in the neck and the other in the right anterolateral chest and the two were connected through a subcutaneous tunnel through which the tunneled catheter was brought out of the upper incision where after serial dilation of the tract, a peel-away introducer sheath and dilator were placed coaxially over a wire and followed into the vena cava under fluoroscopy and the wire and dilator were removed. The catheter was placed through the sheath into the vessel and the sheath peeled away and removed being the catheter in good position and no kinks noted along its length. Good venous blood return was obtained from both ports of the catheter, which was flushed with heparinized saline and capped. The catheter was then secured to the skin with 3-0 nylon sutures and the neck incision was irrigated with antibiotic solution and hemostasis was ensured. It was closed with a single suture of 4-0 Vicryl in a vertical mattress subcuticular fashion. Skin was cleaned and dried and Betadine applied to both incisions and sterile dressings were placed. The patient tolerated the procedure well and was transferred to PACU in stable condition. ESTIMATED BLOOD LOSS: Minimal. COMPLICATIONS: None. DRAINS: None. SPECIMEN: None. TOTAL FLUOROSCOPY TIME: 209 seconds. TOTAL CONTRAST: 30 mL. Procedure was performed using maximal sterile barrier technique. Zenia Bernstein M.D. DR: HEATHER JOB#: [id number] CC: Eric Earl M.D.; Fax#: [phone] ARVIND DELGADO M.D. ; FAX#: [phone] ZENIA BERNSTEIN M.D.; FAX#: [phone] DEVYN
[2019-04-16] VITALS: BP 116/60
--- NOTE | 2019-04-16 02:42 | NUR ---
NURSE NOTES: Observed pt asleep in bed. No signs/symptoms of acute distress noted at this time. Will continue plan of care.
[2019-04-16 04:00] VITALS: BP 119/68
--- NOTE | 2019-04-16 07:00 | NUR ---
NURSE NOTES: Pt's left upper arm shunt began bleeding. Blood squirting from the site. Pressure was applied with gauze and jon wrapped. Pt's arm currently elevated on pillow with ice packed applied. Bleeding currently under controlled. Pt is asymptomatic. BP 113/66, HR 86. Dr. Earl, Dr. Canada, and Dr. Gomez made aware. Dr. Gomez gave orders to monitor pt, reorder CBC, and to hold Heparin during HD. Endorsed to [facility] Corrigan.
[2019-04-16 07:13] LABS: BASOPHILS % (AUTO) 0.3 % (0.0-2.0); EOSINOPHILS % (AUTO) 3.3 % (0.0-3.0); HEMATOCRIT 24.7 % (37.0-47.0); HEMOGLOBIN 8.1 G/DL (12.0-16.0); LYMPHOCYTES % (AUTO) 13.1 % (20.0-45.0); MEAN CORPUSCULAR VOLUME 86 FL (80-99); MONOCYTES % (AUTO) 6.5 % (1.0-10.0); NEUTROPHILS % (AUTO) 76.9 % (45.0-75.0); PLATELET COUNT 235 K/UL (150-450); RED BLOOD COUNT 2.86 M/UL (4.20-5.40); RED CELL DISTRIBUTION WIDTH 13.4 % (11.6-14.8); WHITE BLOOD COUNT 9.7 K/UL (4.8-10.8)
--- NOTE | 2019-04-16 07:15 | NUR ---
NURSE NOTES: Nurse report given [facility] Ortiz. Patient's awake in bed in semi-bhat position, eyes open spontaneously, denies pain, no s/s of distress or SOB, AO x 3. Bed low and locked, call light within reach, side rails x 3, bed alarm is armed, surveillance system monitor is on. IV is saline locked, patent and asymptomatic. Right IJ permacath noted, no s/s of active bleeding or infection noted. L upper arm fistula noted with active bleeding, dressing changed, applied pressure, arm elevated and with ice applied on arm. Notified Dr. Earl, Dr. Canada and DR. Gomez regarding the situation. Dr. Gomez ordered to repeat CBC lab, hold heparin when dialysis comes. Orders acknowledged and carried out. Will continue to monitor closely.
[2019-04-16 07:41] LABS: ANION GAP 4 mmol/L (5-15); BLOOD UREA NITROGEN 44 mg/dL (7-18); CALCIUM 9.1 MG/DL (8.5-10.1); CARBON DIOXIDE 26 MMOL/L (21-32); CHLORIDE 98 MMOL/L (98-107); CREATININE 9.2 MG/DL (0.55-1.30); POTASSIUM 4.1 MMOL/L (3.5-5.1); SODIUM 128 MMOL/L (136-145)
[2019-04-16 08:00] VITALS: BP 116/72
--- NOTE | 2019-04-16 08:15 | NUR ---
HAND-OFF: Report given to [facility] Corrigan. Plan of care endorsed.
--- NOTE | 2019-04-16 08:59 | 48 Hour Post Anesthesia Eval ---
Post Anesthesia Evaluation Procedure: Perm cath placement Date of Evaluation: Apr 16, 2019 Airway: patent Nausea: No Vomiting: No Hydration Status: adequate Cardiopulmonary Status: at baseline Mental Status/LOC: patient returned to baseline Post-Anesthesia Complications: 0 Follow-up care needed: N/A - further care as per primary team Hailey Baptiste MD Apr 16, 2019 08:59
--- NOTE | 2019-04-16 09:03 | Critical Care Progress Note ---
Assessment/Plan Assessment/Plan IMPRESSION: 1. Bleeding AV fistula, significant amount of blood loss noted. 2. Anemia due to the above. 3. End-stage renal disease. 4. Mild protein-calorie malnutrition. 5. Elevated natriuretic peptide. 6. Lactic acidemia. 7. Possible sepsis. 8. No evidence of coagulopathy. 9. Hyperkalemia. PLAN care as is antibiotics per ID; hop to taper HD monitor for change vascular follow up for bleeding ICU care reviewed and discussed monitor acid base and labs nutrition with PO reviewed care in detail impression, plan, and exam edited and reviewed in detail care discussed with mid level business analyst - Subjective Interval Events: bleeding noted from dialysis shunt controlled with pressure renal notified Condition: unchanged EKG Rhythm: Sinus Rhythm I&O: Intake and Output 04/15/19 04/16/19 19:00 07:00 Intake Total 450 ml Output Total 30 ml Balance 420 ml Intake Oral 100 ml IV Total 350 ml Estimated Blood Loss 30 ml # Voids 2 Critical Care - Objective Last 24 Hour Vital Signs Date Time Temp Pulse Resp B/P (MAP) Pulse Ox O2 Delivery O2 Flow Rate FiO2 04/16/19 08:00 98.1 92 18 116/72 (87) 96 04/16/19 04:00 90 04/16/19 04:00 98.1 90 19 119/68 (85) 96 04/16/19 00:00 88 04/16/19 00:00 98.1 88 20 116/60 (78) 96 04/15/19 21:00 Room Air 04/15/19 20:32 96 118/66 04/15/19 20:00 98.2 96 20 118/66 (83) 97 04/15/19 20:00 93 04/15/19 16:00 98 04/15/19 15:15 81 17 121/63 98 Room Air 81 04/15/19 14:30 97.2 80 15 117/65 98 Room Air 80 04/15/19 14:15 81 18 120/66 97 Room Air 81 04/15/19 14:00 83 14 121/60 98 Room Air 83 04/15/19 13:45 80 17 110/61 96 Room Air 80 04/15/19 13:36 82 18 108/60 100 Simple Mask 6 04/15/19 13:31 81 18 103/56 100 Simple Mask 6 3/2/20 13:26 97.8 86 22 116/74 100 Simple Mask 6 Labs: Laboratory Tests Test 04/16/19 05:30 04/16/19 08:40 White Blood Count 9.7 K/UL (4.8-10.8) Pending Red Blood Count 2.86 M/UL (4.20-5.40) L Pending Hemoglobin 8.1 G/DL (12.0-16.0) L Pending Hematocrit 24.7 % (37.0-47.0) L Pending Mean Corpuscular Volume 86 FL (80-99) Pending Mean Corpuscular Hemoglobin 28.3 PG (27.0-31.0) Pending Mean Corpuscular Hemoglobin Concent 32.8 G/DL (32.0-36.0) Pending Red Cell Distribution Width 13.4 % (11.6-14.8) Pending Platelet Count 235 K/UL (150-450) Pending Mean Platelet Volume 4.1 FL (6.5-10.1) L Pending Neutrophils (%) (Auto) 76.9 % (45.0-75.0) H Pending Lymphocytes (%) (Auto) 13.1 % (20.0-45.0) L Pending Monocytes (%) (Auto) 6.5 % (1.0-10.0) Pending Eosinophils (%) (Auto) 3.3 % (0.0-3.0) H Pending Basophils (%) (Auto) 0.3 % (0.0-2.0) Pending Sodium Level 128 MMOL/L (136-145) L Potassium Level 4.1 MMOL/L (3.5-5.1) Chloride Level 98 MMOL/L (98-107) Carbon Dioxide Level 26 MMOL/L (21-32) Anion Gap 4 mmol/L (5-15) L Blood Urea Nitrogen 44 mg/dL (7-18) H Creatinine 9.2 MG/DL (0.55-1.30) H Estimat Glomerular Filtration Rate 5.2 mL/min (>60) Glucose Level 77 MG/DL (74-106) Calcium Level 9.1 MG/DL (8.5-10.1) Objective: GENERAL: A well-developed female, appears to be chronically ill. NAD HEENT: Overall negative. NECK: Supple. No adenopathy LUNGS: Good air entry overall. without rhonchi or wheeze CARDIAC: S1 and S2. Regular rate and rhythm without murmurs, rubs, gallops. ABDOMEN: Soft, nontender, nondistended. EXTREMITIES: No cyanosis or clubbing. No edema. Left upper extremity fistula noted with mild bulging. NEURO: nonfocal Micro: Microbiology Date/Time Source Procedure Growth Status 04/14/19 12:00 Blood Blood Culture - Preliminary NO GROWTH AFTER 24 HOURS Resulted 04/14/19 05:33 Blood Blood Culture - Preliminary NO GROWTH AFTER 48 HOURS Resulted 04/14/19 05:18 Blood Blood Culture - Preliminary NO GROWTH AFTER 48 HOURS Resulted 04/13/19 10:15 Blood Blood Culture - Preliminary NO GROWTH AFTER 48 HOURS Resulted 04/13/19 10:00 Blood Blood Culture - Preliminary NO GROWTH AFTER 48 HOURS Resulted 04/13/19 11:20 Nasal Nares MRSA Culture - Final NO METHICILLIN RESISTANT STAPH AUREUS... Complete 04/13/19 11:20 Rectum - Final NO CARBAPENEM-RESISTANT ENTEROBACTERI... Complete 04/13/19 11:20 Rectum VRE Culture - Final Enterococcus Faecium - Vre Enterococcus Faecalis - Vre Complete Eric Earl MD Apr 16, 2019 09:03
[2019-04-16 09:11] LABS: HEMATOCRIT 23.9 % (37.0-47.0); HEMOGLOBIN 7.8 G/DL (12.0-16.0); MEAN CORPUSCULAR VOLUME 86 FL (80-99); PLATELET COUNT 219 K/UL (150-450); RED BLOOD COUNT 2.79 M/UL (4.20-5.40); RED CELL DISTRIBUTION WIDTH 13.2 % (11.6-14.8); WHITE BLOOD COUNT 10.5 K/UL (4.8-10.8)
[2019-04-16] MEDS: Pantoprazole Inj IVP SCH ×2 (09:23→21:00)
[2019-04-16] MEDS: Cefepime HCl 1 GM in D5W 55 ML IVPB SCH (09:24)
[2019-04-16] MEDS: Carvedilol 12.5mg tab ORAL SCH ×2 (09:24→21:00)
[2019-04-16] MEDS: Renvela 800mg Pkt ORAL SCH ×3 (09:24→17:56)
--- NOTE | 2019-04-16 10:14 | Infectious Diseases Prog Note ---
Assessment/Plan Assessment/Plan antibiotics : vancomycin iv, cefepime .20- A 1. leucocytosis improving 2. renal failure on dialysis 3. hypertension 4, cardiomyopathy 5. CVA P 1. continue iv vancomycin 3 more days 2. d/c cefepime 3. will follow up cultures Subjective Constitutional: Denies: fever, chills Respiratory: Denies: shortness of breath, dry cough Gastrointestinal/Abdominal: Denies: nausea, vomiting, diarrhea Musculoskeletal: Denies: pain Allergies: Coded Allergies: ASPIRIN (Unverified Allergy, Unknown, 04/13/19) PENICILLINS (Unverified Allergy, Unknown, 04/13/19) Objective Vital Signs Last 24 Hour Vital Signs Date Time Temp Pulse Resp B/P (MAP) Pulse Ox O2 Delivery O2 Flow Rate FiO2 04/16/19 09:24 92 116/72 04/16/19 08:00 98.1 92 18 116/72 (87) 96 04/16/19 04:00 90 04/16/19 04:00 98.1 90 19 119/68 (85) 96 04/16/19 00:00 88 04/16/19 00:00 98.1 88 20 116/60 (78) 96 04/15/19 21:00 Room Air 04/15/19 20:32 96 118/66 04/15/19 20:00 98.2 96 20 118/66 (83) 97 04/15/19 20:00 93 04/15/19 16:00 98 04/15/19 15:15 81 17 121/63 98 Room Air 81 04/15/19 14:30 97.2 80 15 117/65 98 Room Air 80 04/15/19 14:15 81 18 120/66 97 Room Air 81 04/15/19 14:00 83 14 121/60 98 Room Air 83 04/15/19 13:45 80 17 110/61 96 Room Air 80 04/15/19 13:36 82 18 108/60 100 Simple Mask 6 04/15/19 13:31 81 18 103/56 100 Simple Mask 6 04/15/19 13:26 97.8 86 22 116/74 100 Simple Mask 6 Height (Feet): 5 Height (Inches): 7.00 Weight (Pounds): 204 Respiratory/Chest: lungs clear Cardiovascular: normal rate, regular rhythm, no gallop/murmur Abdomen: soft, non tender Extremities: no edema, other - left arm bleeding Microbiology Date/Time Source Procedure Growth Status 04/14/19 12:00 Blood Blood Culture - Preliminary NO GROWTH AFTER 24 HOURS Resulted 04/14/19 05:33 Blood Blood Culture - Preliminary NO GROWTH AFTER 48 HOURS Resulted 04/14/19 05:18 Blood Blood Culture - Preliminary NO GROWTH AFTER 48 HOURS Resulted 04/13/19 10:15 Blood Blood Culture - Preliminary NO GROWTH AFTER 48 HOURS Resulted 04/13/19 11:20 Nasal Nares MRSA Culture - Final NO METHICILLIN RESISTANT STAPH AUREUS... Complete 04/13/19 11:20 Rectum - Final NO CARBAPENEM-RESISTANT ENTEROBACTERI... Complete 04/13/19 11:20 Rectum VRE Culture - Final Enterococcus Faecium - Vre Enterococcus Faecalis - Vre Complete Laboratory Tests Test 04/16/19 05:30 04/16/19 08:40 White Blood Count 9.7 K/UL (4.8-10.8) 10.5 K/UL (4.8-10.8) Red Blood Count 2.86 M/UL (4.20-5.40) L 2.79 M/UL (4.20-5.40) L Hemoglobin 8.1 G/DL (12.0-16.0) L 7.8 G/DL (12.0-16.0) L Hematocrit 24.7 % (37.0-47.0) L 23.9 % (37.0-47.0) L Mean Corpuscular Volume 86 FL (80-99) 86 FL (80-99) Mean Corpuscular Hemoglobin 28.3 PG (27.0-31.0) 28.1 PG (27.0-31.0) Mean Corpuscular Hemoglobin Concent 32.8 G/DL (32.0-36.0) 32.7 G/DL (32.0-36.0) Red Cell Distribution Width 13.4 % (11.6-14.8) 13.2 % (11.6-14.8) Platelet Count 235 K/UL (150-450) 219 K/UL (150-450) Mean Platelet Volume 4.1 FL (6.5-10.1) L 4.0 FL (6.5-10.1) L Neutrophils (%) (Auto) 76.9 % (45.0-75.0) H % (45.0-75.0) Lymphocytes (%) (Auto) 13.1 % (20.0-45.0) L % (20.0-45.0) Monocytes (%) (Auto) 6.5 % (1.0-10.0) % (1.0-10.0) Eosinophils (%) (Auto) 3.3 % (0.0-3.0) H % (0.0-3.0) Basophils (%) (Auto) 0.3 % (0.0-2.0) % (0.0-2.0) Sodium Level 128 MMOL/L (136-145) L Potassium Level 4.1 MMOL/L (3.5-5.1) Chloride Level 98 MMOL/L (98-107) Carbon Dioxide Level 26 MMOL/L (21-32) Anion Gap 4 mmol/L (5-15) L Blood Urea Nitrogen 44 mg/dL (7-18) H Creatinine 9.2 MG/DL (0.55-1.30) H Estimat Glomerular Filtration Rate 5.2 mL/min (>60) Glucose Level 77 MG/DL (74-106) Calcium Level 9.1 MG/DL (8.5-10.1) Neutrophils % (Manual) Pending Lymphocytes % (Manual) Pending Platelet Estimate Pending Platelet Morphology Pending Current Medications Medications (Trade) Dose Ordered Sig/Chris Route PRN Reason Start Time Stop Time Status Last Admin Dose Admin Acetaminophen (Tylenol) 500 mg Q6H PRN ORAL Mild Pain/Temp > 100.5 04/14/19 20:00 05/13/19 19:59 04/15/19 17:05 Acetaminophen (Tylenol) 650 mg Q6H PRN ORAL Mild Pain/Temp > 100.5 04/14/19 22:00 05/14/19 21:59 Carvedilol (Coreg) 12.5 mg EVERY 12 HOURS ORAL 04/14/19 21:00 05/13/19 20:59 04/16/19 09:24 Cefepime HCl 1 gm/ Dextrose 55 ml @ 110 mls/hr Q24H IVPB 04/15/19 10:00 04/21/19 09:59 04/16/19 09:24 Diphenhydramine HCl (Benadryl) 25 mg Q6H PRN ORAL Itching 04/14/19 20:00 05/13/19 19:59 Heparin Sodium (Porcine) (Heparin Sod 1000 units/ml 10ml) 500 unit ONCE ONCE IV 04/16/19 17:00 04/16/19 17:01 Lidocaine/ Epinephrine (Lidocaine 1% 10mg/ml/Epi 0.005) 30 ml ONCE ONCE INJ 04/16/19 10:30 04/16/19 10:31 Ondansetron HCl (Zofran) 4 mg Q6H PRN IVP Nausea & Vomiting 04/14/19 20:00 05/14/19 19:59 Pantoprazole (Protonix) 40 mg EVERY 12 HOURS IVP 04/14/19 21:00 05/13/19 20:59 04/16/19 09:23 Povidone Iodine (Betadine Oint) 1 applic ONCE ONCE TOPIC 04/16/19 10:30 04/16/19 10:31 Sevelamer Carbonate (Renvela) 800 mg THREE TIMES A DAY ORAL 04/15/19 09:00 05/13/19 17:59 04/16/19 09:24 Sodium Chloride 1,000 ml @ 500 mls/hr Q2H PRN IVLG sbp<90 during hd 04/14/19 19:45 05/14/19 16:30 Sodium Chloride 1,000 ml @ 500 mls/hr Q2H PRN IVLG sbp<90 during hd 04/16/19 16:51 05/16/19 16:50 Vancomycin HCl (Vanco rx to dose) 1 ea DAILY PRN MISC Per rx protocol 04/15/19 09:00 05/13/19 20:59 Madeline Shetty MD Apr 16, 2019 10:14
[2019-04-16] MEDS ORDERED: Betadine 10% Oint 30gm TOPIC ONE (10:30)
[2019-04-16] MEDS ORDERED: Lidocaine 1% 10mg/ml/Epi 0.005mg/ml 30ml vial INJ ONE (10:30)
--- NOTE | 2019-04-16 10:43 | Immediate Post-Op Evaluation ---
Immediate Post-Op Evalulation Immediate Post-Op Evalulation Procedure: Perm cath placement revision of L arm A-V shunt Date of Evaluation: Apr 15, 2019 Time of Evaluation: 13:40 IV Fluids: 300 Blood Products: none Estimated Blood Loss: 50 Urinary Output: none Blood Pressure Systolic: 134 Blood Pressure Diastolic: 62 Pulse Rate: 68 Respiratory Rate: 20 O2 Sat by Pulse Oximetry: 98 Temperature (Fahrenheit): 97.8 Pain Score (1-10): 2 Nausea: No Vomiting: No Complications none Patient Status: reacts, patent, none Hydration Status: adequate Omid Ordaz MD Apr 16, 2019 10:43
[2019-04-16 12:00] VITALS: BP 111/58
--- NOTE | 2019-04-16 14:46 | Anethesia Preoperative Eval ---
Anesthesia Pre-op PMH/ROS General Date of Evaluation: Apr 16, 2019 Time of Evaluation: 14:40 Anesthesiologist: Sushma ASA Score: ASA 3 Mallampati Score Class I : Soft palate, uvula, fauces, pillars visible Class II: Soft palate, uvula, fauces visible Class III: Soft palate, base of uvula visible Class IV: Only hard plate visible Mallampati Classification: Class III Surgeon: Patricia Diagnosis: Bleeding A-V shunt Surgical Procedure: A-V shunt revision Anesthesia History: none Family History: no anesthesia problems Allergies: Coded Allergies: ASPIRIN (Unverified Allergy, Unknown, 04/13/19) PENICILLINS (Unverified Allergy, Unknown, 04/13/19) Medications: see eMAR Patient NPO?: Yes NPO Date: Apr 15, 2019 NPO Time: 0000 Past Medical History Cardiovascular: Reports: HTN; Denies: CAD, DE, valve dz, arrhythmia, other Pulmonary: Reports: ADOLPH; Denies: asthma, COPD, other Gastrointestinal/Genitourinary: Reports: GERD, ESRD - on dialysis Neurologic/Psychiatric: Reports: CVA, depression/anxiety; Denies: dementia, TIA, other Endocrine: Reports: hypothyroidism; Denies: DM, steroids, other HEENT: Denies: cataract (L), cataract (R), glaucoma, UMKUMIUT (L), UMKUMIUT (R), other Hematology/Immune: Reports: anemia, 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 Exam Physician Exam Last Vital Signs Date Time Temp Pulse Resp B/P (MAP) Pulse Ox O2 Delivery O2 Flow Rate FiO2 04/16/19 12:00 81 04/16/19 12:00 97.7 19 111/58 (75) 96 04/16/19 09:00 Room Air 04/15/19 13:36 6 Constitutional: NAD Neurologic: CN 2-12 intact Cardiovascular: RRR Respiratory: CTA Gastrointestinal: other - obesity Airway Exam Mallampati Score: Class III MO: limited Neck: short ROM: limited Teeth: missing Dentures: no upper, no lower Anesthesia Pre-op A/P Labs Hematology Test 04/16/19 05:30 04/16/19 08:40 White Blood Count 9.7 K/UL (4.8-10.8) 10.5 K/UL (4.8-10.8) Red Blood Count 2.86 M/UL (4.20-5.40) L 2.79 M/UL (4.20-5.40) L Hemoglobin 8.1 G/DL (12.0-16.0) L 7.8 G/DL (12.0-16.0) L Hematocrit 24.7 % (37.0-47.0) L 23.9 % (37.0-47.0) L Mean Corpuscular Volume 86 FL (80-99) 86 FL (80-99) Mean Corpuscular Hemoglobin 28.3 PG (27.0-31.0) 28.1 PG (27.0-31.0) Mean Corpuscular Hemoglobin Concent 32.8 G/DL (32.0-36.0) 32.7 G/DL (32.0-36.0) Red Cell Distribution Width 13.4 % (11.6-14.8) 13.2 % (11.6-14.8) Platelet Count 235 K/UL (150-450) 219 K/UL (150-450) Mean Platelet Volume 4.1 FL (6.5-10.1) L 4.0 FL (6.5-10.1) L Neutrophils (%) (Auto) 76.9 % (45.0-75.0) H % (45.0-75.0) Lymphocytes (%) (Auto) 13.1 % (20.0-45.0) L % (20.0-45.0) Monocytes (%) (Auto) 6.5 % (1.0-10.0) % (1.0-10.0) Eosinophils (%) (Auto) 3.3 % (0.0-3.0) H % (0.0-3.0) Basophils (%) (Auto) 0.3 % (0.0-2.0) % (0.0-2.0) Differential Total Cells Counted 100 Neutrophils % (Manual) 78 % (45-75) H Lymphocytes % (Manual) 15 % (20-45) L Monocytes % (Manual) 4 % (1-10) Eosinophils % (Manual) 3 % (0-3) Basophils % (Manual) 0 % (0-2) Band Neutrophils 0 % (0-8) Platelet Estimate Adequate Platelet Morphology Normal Hypochromasia 1+ Chemistry Test 04/16/19 05:30 Sodium Level 128 MMOL/L (136-145) L Potassium Level 4.1 MMOL/L (3.5-5.1) Chloride Level 98 MMOL/L (98-107) Carbon Dioxide Level 26 MMOL/L (21-32) Anion Gap 4 mmol/L (5-15) L Blood Urea Nitrogen 44 mg/dL (7-18) H Creatinine 9.2 MG/DL (0.55-1.30) H Estimat Glomerular Filtration Rate 5.2 mL/min (>60) Glucose Level 77 MG/DL (74-106) Calcium Level 9.1 MG/DL (8.5-10.1) Risk Assessment & Plan Assessment: ASA 3 Plan: GA with LMA. After the second episode of bleeding from A-V shunt Hb droped down to about 7 will transfuse with 1 unit of PRBC tonight during dialysis session. Status Change Before Surgery: No Pre-Antibiotics Drug: as scheduled Omid Ordaz MD Apr 16, 2019 14:46
--- NOTE | 2019-04-16 15:21 | NUR ---
NURSE NOTES: Spoke to Shirley from [facility] regarding the ETA of dialysis nurse to come. Awaiting for call back from [facility] nurse.
[2019-04-16 16:00] VITALS: BP 120/66
--- NOTE | 2019-04-16 16:38 | Diagnostic Imaging Report ---
Indication: Intraoperative imaging COMPARISON: None FINDINGS: Multiple fluoroscopic images were obtained intraoperatively. The procedure was performed by Dr. Gomez.Multiple fluoroscopic images showing portions of an opacified left upper extremity outflow vein (AVF) with multiple balloon angioplasties. Right permacath also noted on the 2 final films. Total fluoroscopic time 176 seconds. IMPRESSION: Intraoperative imaging as described above
[2019-04-16] MEDS ORDERED: Heparin Sod 1000 units/ml 10ml IV ONE (17:00)
--- NOTE | 2019-04-16 17:51 | Nephrology Progress Note ---
Assessment/Plan Problem List: (1) AVF (arteriovenous fistula) Assessment: s/p bleed with collapsed bullae, possible occult infection (2) End stage renal disease on dialysis (3) Hemorrhagic shock Plan HD 04/15 , d/w dr santos to place permcath to rest avf done, HD 04/15, bled again and surgery 04/16 Subjective Constitutional: Reports: weakness HEENT: Reports: no symptoms Genitourinary: Reports: no symptoms Neurologic/Psychiatric: Reports: pre-existing deficit Objective Objective Last 24 Hour Vital Signs Date Time Temp Pulse Resp B/P (MAP) Pulse Ox O2 Delivery O2 Flow Rate FiO2 04/16/19 16:00 98.1 86 18 120/66 (84) 100 04/16/19 12:00 81 04/16/19 12:00 97.7 86 19 111/58 (75) 96 04/16/19 10:43 68 20 98 04/16/19 09:24 92 116/72 04/16/19 09:00 Room Air 04/16/19 09:00 Room Air 04/16/19 08:00 95 04/16/19 08:00 98.1 92 18 116/72 (87) 96 04/16/19 04:00 90 04/16/19 04:00 98.1 90 19 119/68 (85) 96 04/16/19 00:00 88 04/16/19 00:00 98.1 88 20 116/60 (78) 96 04/15/19 21:00 Room Air 04/15/19 20:32 96 118/66 04/15/19 20:00 98.2 96 20 118/66 (83) 97 04/15/19 20:00 93 Intake and Output 04/15/19 04/16/19 19:00 07:00 Intake Total 450 ml Output Total 30 ml Balance 420 ml Intake Oral 100 ml IV Total 350 ml Estimated Blood Loss 30 ml # Voids 2 Laboratory Tests 04/16/19 05:30: White Blood Count 9.7, Red Blood Count 2.86L, Hemoglobin 8.1L, Hematocrit 24.7L , Mean Corpuscular Volume 86, Mean Corpuscular Hemoglobin 28.3, Mean Corpuscular Hemoglobin Concent 32.8, Red Cell Distribution Width 13.4, Platelet Count 235, Mean Platelet Volume 4.1L, Neutrophils (%) (Auto) 76.9H, Lymphocytes (%) (Auto) 13.1L, Monocytes (%) (Auto) 6.5, Eosinophils (%) (Auto) 3.3H, Basophils (%) (Auto) 0.3, Sodium Level 128L, Potassium Level 4.1, Chloride Level 98, Carbon Dioxide Level 26, Anion Gap 4L, Blood Urea Nitrogen 44H, Creatinine 9.2H, Estimat Glomerular Filtration Rate 5.2, Glucose Level 77, Calcium Level 9.1 04/16/19 08:40: White Blood Count 10.5, Red Blood Count 2.79L, Hemoglobin 7.8L, Hematocrit 23.9L , Mean Corpuscular Volume 86, Mean Corpuscular Hemoglobin 28.1, Mean Corpuscular Hemoglobin Concent 32.7, Red Cell Distribution Width 13.2, Platelet Count 219, Mean Platelet Volume 4.0L, Neutrophils (%) (Auto) , Lymphocytes (%) ( Auto) , Monocytes (%) (Auto) , Eosinophils (%) (Auto) , Basophils (%) (Auto) , Differential Total Cells Counted 100, Neutrophils % (Manual) 78H, Lymphocytes % (Manual) 15L, Monocytes % (Manual) 4, Eosinophils % (Manual) 3, Basophils % ( Manual) 0, Band Neutrophils 0, Platelet Estimate Adequate, Platelet Morphology Normal, Hypochromasia 1+ Height (Feet): 5 Height (Inches): 7.00 Weight (Pounds): 204 General Appearance: morbidly obese EENT: normal ENT inspection Neck: normal alignment Cardiovascular: normal rate, regular rhythm Respiratory/Chest: lungs clear Abdomen: non tender 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
--- NOTE | 2019-04-16 18:31 | NUR ---
NURSE NOTES: Spoke to [facility] regarding patient needs to have dialysis within today along with blood transfusion, and informed nurse that blood product expires at midnight. Dialysis nurse aware and stated nurse will try to perform the dialysis along with blood transfusion by 2100. Informed patient and family member at bedside, they aware.
--- NOTE | 2019-04-16 19:20 | NUR ---
NURSE NOTES: Received pt and report from ARELI Corrigan. Pt is A/Ox3. Observed pt resting in bed with both eyes open and family members at bedside. shirt hemmer is in placed, IV site intact, asymptomatic and patent. Pt has a right upper chest PermaCath for HD; awaiting for HD nurse to dialyze tonight. No bleeding noted on left upper arm AV shunt. Will monitor closely. Bed is in the lowest position and locked. Call light and bedside table is within reach. No signs/symptoms of acute distress noted at this time. Will continue plan of care.
--- NOTE | 2019-04-16 19:30 | NUR ---
HAND-OFF: Report given to ARELI Ortiz. Patient's stable, plan of care endorsed.
[2019-04-16 20:00] VITALS: BP 117/68
--- NOTE | 2019-04-16 23:10 | NUR ---
NURSE NOTES: Pt received 1 unit packed RBCs while receiving HD with nurse [facility]. 2 RNs verifications prior to blood transfusion. Consent signed and in pt's chart. No reaction noted. 2L removed. Pt in stable condition. Will continue to monitor pt.
[2019-04-17] VITALS (13 sets, daily range): BP systolic 112–140; BP diastolic 62–92
[2019-04-17 06:30] LABS: BASOPHILS % (AUTO) 0.3 % (0.0-2.0); EOSINOPHILS % (AUTO) 3.2 % (0.0-3.0); HEMOGLOBIN 8.7 G/DL (12.0-16.0); LYMPHOCYTES % (AUTO) 10.4 % (20.0-45.0); MEAN CORPUSCULAR VOLUME 87 FL (80-99); MONOCYTES % (AUTO) 9.2 % (1.0-10.0); NEUTROPHILS % (AUTO) 76.9 % (45.0-75.0); PLATELET COUNT 223 K/UL (150-450); RED CELL DISTRIBUTION WIDTH 13.6 % (11.6-14.8); WHITE BLOOD COUNT 9.3 K/UL (4.8-10.8)
[2019-04-17 06:44] LABS: ALANINE AMINOTRANSFERASE 16 U/L (12-78); ALBUMIN 2.5 G/DL (3.4-5.0); ALBUMIN/GLOBULIN RATIO 0.7 (1.0-2.7); ALKALINE PHOSPHATASE 51 U/L (46-116); ANION GAP 8 mmol/L (5-15); ASPARTATE AMINO TRANSFERASE 11 U/L (15-37); BILIRUBIN,TOTAL 0.5 MG/DL (0.2-1.0); BLOOD UREA NITROGEN 23 mg/dL (7-18); CALCIUM 8.9 MG/DL (8.5-10.1); CARBON DIOXIDE 31 MMOL/L (21-32); CHLORIDE 95 MMOL/L (98-107); CREATININE 6.1 MG/DL (0.55-1.30); POTASSIUM 3.3 MMOL/L (3.5-5.1); SODIUM 134 MMOL/L (136-145)
--- NOTE | 2019-04-17 07:36 | NUR ---
HAND-OFF: Report given to ARELI Parsons. Plan of care endorsed.
[2019-04-17 08:00] LABS: ANION GAP 10 mmol/L (5-15); BLOOD UREA NITROGEN 24 mg/dL (7-18); CARBON DIOXIDE 29 MMOL/L (21-32); CHLORIDE 95 MMOL/L (98-107); CREATININE 6.2 MG/DL (0.55-1.30); POTASSIUM 3.3 MMOL/L (3.5-5.1); SODIUM 134 MMOL/L (136-145)
--- NOTE | 2019-04-17 08:20 | NUR ---
NURSE NOTES: REPORT GIVEN TO [facility]AI ASSISTANT STORE DIRECTOR OF OR DPT. PT ON SCHEDULE FOR LT UA -AV SHUNT EXPLORATION AND WILL BE PERFORMED BY DR BERNSTEIN THIS AM. PT IS NPO SINCE MID-NIGHT, HELD AM P.O MED,S PER M.D ORDERS. WILL CONT TO MONITOR.
[2019-04-17] MEDS ORDERED: Lidocaine 1% Plain 30 ml INJ ONE (08:56)
[2019-04-17] MEDS ORDERED: Bacitracin Oint 15gm Tube TOPIC ONE (08:56)
[2019-04-17] MEDS ORDERED: Heparin 5000 units/ml inj ONE (08:56)
[2019-04-17] MEDS ORDERED: Bupivacaine 0.5% Inj 30 ml vial INJ ONE (08:56)
[2019-04-17] MEDS ORDERED: Bacitracin 50000 Units Vial ONE (08:56)
[2019-04-17] MEDS ORDERED: Thrombin 5000 units TOPIC ONE (08:57)
[2019-04-17] MEDS: Pantoprazole Inj IVP SCH ×2 (08:59→21:46)
[2019-04-17] MEDS: Renvela 800mg Pkt ORAL SCH ×3 (09:00→18:09)
[2019-04-17] MEDS: Carvedilol 12.5mg tab ORAL SCH ×2 (09:00→21:00)
[2019-04-17] MEDS ORDERED: Propofol 200mg/20ml IV ONE ×2 (09:09→11:48)
[2019-04-17] MEDS ORDERED: Lidocaine 1% MPF 10mg/ml 5ml ONE (09:09)
[2019-04-17] MEDS ORDERED: fentaNYL 100 mcg/2 mL IV ONE (09:09)
[2019-04-17] MEDS ORDERED: Midazolam 2mg/2ml Inj ONE (09:09)
--- NOTE | 2019-04-17 09:10 | NUR ---
NURSE NOTES: PT LEFT THE UNIT VIA BED ON STABLE CONDITION TO OR DPT ESCORTED BY [facility] STAFF.
[2019-04-17] MEDS ORDERED: NS Irrig 1000ml IRRIG ONE ×2 (09:16→10:10)
[2019-04-17] MEDS ORDERED: NS 500ML IVPB ONE ×2 (09:19→10:10)
[2019-04-17] MEDS ORDERED: NS Irrig 1000ml ONE (09:30)
[2019-04-17] MEDS ORDERED: Sterile Water Irrig 1000ml IRRIG ONE (09:30)
--- NOTE | 2019-04-17 09:55 | Pre-Procedure Note/Attestation ---
Pre-Procedure Note/Attestation Complete Prior to Procedure Planned Procedure: left Procedure Narrative: left arm dialysis shunt exploration, possible revision, ligation, or removal Indications for Procedure Pre-Operative Diagnosis: bleeding shunt; ESRD Attestation I attest that I discussed the nature of the procedure; its benefits; risks and complications; and alternatives (and the risks and benefits of such alternatives ), prior to the procedure, with the patient (or the patient's legal client support representative). I attest that, if there was a reasonable possibility of needing a blood transfusion, the patient (or the patient's legal client support representative) was given the [facility] standardized written summary, pursuant to the Brandon Katrina Blood Safety Act ([place] Health and Safety Code # 1645, as amended). I attest that I re-evaluated the patient just prior to the surgery and that there has been no change in the patient's H&P, except as documented below: Davide Gomez MD Apr 17, 2019 09:55
--- NOTE | 2019-04-17 10:06 | Pulmonology Progress Note ---
Assessment/Plan Assessment/Plan Pulmonary Progress Note Assessment/Plan IMPRESSION: 1. Bleeding AV fistula, significant amount of blood loss noted. sp AVF redo 2. Anemia due to the above, stable 3. End-stage renal disease. 4. Mild protein-calorie malnutrition. 5. Elevated natriuretic peptide. 6. Lactic acidemia. 7. Possible sepsis. 8. No evidence of coagulopathy. 9. Hyperkalemia. PLAN care as is antibiotics per ID; hop to taper HD monitor for change vascular follow up for bleeding monitor acid base and labs nutrition with PO reviewed care in detail impression, plan, and exam edited and reviewed in detail care discussed with RN Interval Events: sp dialysis shunt redo renal following Condition: unchanged EKG Rhythm: Sinus Rhythm Labs: Noted Test 04/16/19 05:30 04/16/19 08:40 White Blood Count 9.7 K/UL (4.8-10.8) Pending Red Blood Count 2.86 M/UL (4.20-5.40) L Pending Hemoglobin 8.1 G/DL (12.0-16.0) L Pending Hematocrit 24.7 % (37.0-47.0) L Pending Mean Corpuscular Volume 86 FL (80-99) Pending Mean Corpuscular Hemoglobin 28.3 PG (27.0-31.0) Pending Mean Corpuscular Hemoglobin Concent 32.8 G/DL (32.0-36.0) Pending Red Cell Distribution Width 13.4 % (11.6-14.8) Pending Platelet Count 235 K/UL (150-450) Pending Mean Platelet Volume 4.1 FL (6.5-10.1) L Pending Neutrophils (%) (Auto) 76.9 % (45.0-75.0) H Pending Lymphocytes (%) (Auto) 13.1 % (20.0-45.0) L Pending Monocytes (%) (Auto) 6.5 % (1.0-10.0) Pending Eosinophils (%) (Auto) 3.3 % (0.0-3.0) H Pending Basophils (%) (Auto) 0.3 % (0.0-2.0) Pending Sodium Level 128 MMOL/L (136-145) L Potassium Level 4.1 MMOL/L (3.5-5.1) Chloride Level 98 MMOL/L (98-107) Carbon Dioxide Level 26 MMOL/L (21-32) Anion Gap 4 mmol/L (5-15) L Blood Urea Nitrogen 44 mg/dL (7-18) H Creatinine 9.2 MG/DL (0.55-1.30) H Estimat Glomerular Filtration Rate 5.2 mL/min (>60) Glucose Level 77 MG/DL (74-106) Calcium Level 9.1 MG/DL (8.5-10.1) Objective: Vital signs noted GENERAL: A well-developed female, appears to be chronically ill. NAD HEENT: Overall negative. NECK: Supple. No adenopathy LUNGS: Good air entry overall. without rhonchi or wheeze CARDIAC: S1 and S2. Regular rate and rhythm without murmurs, rubs, gallops. ABDOMEN: Soft, nontender, nondistended. EXTREMITIES: No cyanosis or clubbing. No edema. Left upper extremity fistula noted with mild bulging. NEURO: nonfocal Micro: Microbiology Date/Time Source Procedure Growth Status 04/14/19 12:00 Blood Blood Culture - Preliminary NO GROWTH AFTER 24 HOURS Resulted 04/14/19 05:33 Blood Blood Culture - Preliminary NO GROWTH AFTER 48 HOURS Resulted 04/14/19 05:18 Blood Blood Culture - Preliminary NO GROWTH AFTER 48 HOURS Resulted 04/13/19 10:15 Blood Blood Culture - Preliminary NO GROWTH AFTER 48 HOURS Resulted 04/13/19 10:00 Blood Blood Culture - Preliminary NO GROWTH AFTER 48 HOURS Resulted 04/13/19 11:20 Nasal Nares MRSA Culture - Final NO METHICILLIN RESISTANT STAPH AUREUS... Complete 04/13/19 11:20 Rectum - Final NO CARBAPENEM-RESISTANT ENTEROBACTERI... Complete 04/13/19 11:20 Rectum VRE Culture - Final Enterococcus Faecium - Vre Enterococcus Faecalis - Vre Complete Subjective ROS Limited/Unobtainable: No Allergies: Coded Allergies: ASPIRIN (Unverified Allergy, Unknown, 04/13/19) PENICILLINS (Unverified Allergy, Unknown, 04/13/19) Objective Last 24 Hour Vital Signs Date Time Temp Pulse Resp B/P (MAP) Pulse Ox O2 Delivery O2 Flow Rate FiO2 04/17/19 04:00 92 04/17/19 04:00 98.2 92 19 120/62 (81) 96 04/17/19 00:00 86 04/17/19 00:00 97.9 98 20 130/65 (86) 99 04/16/19 21:00 83 117/68 04/16/19 21:00 Room Air 04/16/19 21:00 Room Air 04/16/19 20:00 81 04/16/19 20:00 97.9 83 20 117/68 (84) 98 04/16/19 16:00 82 04/16/19 16:00 98.1 86 18 120/66 (84) 100 04/16/19 12:00 81 04/16/19 12:00 97.7 86 19 111/58 (75) 96 04/16/19 10:43 68 20 98 Intake and Output 04/16/19 04/17/19 19:00 07:00 Intake Total 450 ml 2450 ml Output Total 50 ml Balance 400 ml 2450 ml Intake Oral 450 ml 200 ml Blood Product 250 ml Hemodialysis 2000 ml Output Urine Total 50 ml # Voids 2 Microbiology Date/Time Source Procedure Growth Status 04/14/19 12:00 Blood Blood Culture - Preliminary NO GROWTH AFTER 48 HOURS Resulted Laboratory Tests 04/17/19 05:30: White Blood Count 9.3, Red Blood Count 3.00L, Hemoglobin 8.7L, Hematocrit 26.0L , Mean Corpuscular Volume 87, Mean Corpuscular Hemoglobin 29.0, Mean Corpuscular Hemoglobin Concent 33.4, Red Cell Distribution Width 13.6, Platelet Count 223, Mean Platelet Volume 4.4L, Neutrophils (%) (Auto) 76.9H, Lymphocytes (%) (Auto) 10.4L, Monocytes (%) (Auto) 9.2, Eosinophils (%) (Auto) 3.2H, Basophils (%) (Auto) 0.3, Prothrombin Time 10.2, Prothromb Time International Ratio 1.0, Activated Partial Thromboplast Time 30, Sodium Level 134L, Potassium Level 3.3L, Chloride Level 95L, Carbon Dioxide Level 29, Anion Gap 10, Blood Urea Nitrogen 24H, Creatinine 6.2H, Estimat Glomerular Filtration Rate 8.2, Glucose Level 83, Calcium Level 9.0, Total Bilirubin 0.5, Aspartate Amino Transf (AST/SGOT) 11L, Alanine Aminotransferase (ALT/SGPT) 16, Alkaline Phosphatase 51, Pro-B-Type Natriuretic Peptide 2297H, Total Protein 6.3L, Albumin 2.5L, Globulin 3.8, Albumin/Globulin Ratio 0.7L, Random Vancomycin Level 28.1 Current Medications Medications (Trade) Dose Ordered Sig/Chris Route PRN Reason Start Time Stop Time Status Last Admin Dose Admin Acetaminophen (Tylenol) 500 mg Q6H PRN ORAL Mild Pain/Temp > 100.5 04/14/19 20:00 05/13/19 19:59 04/15/19 17:05 Acetaminophen (Tylenol) 650 mg Q6H PRN ORAL Mild Pain/Temp > 100.5 04/14/19 22:00 05/14/19 21:59 Carvedilol (Coreg) 12.5 mg EVERY 12 HOURS ORAL 04/14/19 21:00 05/13/19 20:59 04/16/19 09:24 Diphenhydramine HCl (Benadryl) 25 mg Q6H PRN ORAL Itching 04/14/19 20:00 05/13/19 19:59 Ondansetron HCl (Zofran) 4 mg Q6H PRN IVP Nausea & Vomiting 04/14/19 20:00 05/14/19 19:59 Pantoprazole (Protonix) 40 mg EVERY 12 HOURS IVP 04/14/19 21:00 05/13/19 20:59 04/17/19 08:59 Sevelamer Carbonate (Renvela) 800 mg THREE TIMES A DAY ORAL 04/15/19 09:00 05/13/19 17:59 04/16/19 17:56 Sodium Chloride 1,000 ml @ 500 mls/hr Q2H PRN IVLG sbp<90 during hd 04/16/19 16:51 05/16/19 16:50 Vancomycin HCl (Vanco rx to dose) 1 ea DAILY PRN MISC Per rx protocol 04/15/19 09:00 05/13/19 20:59 Steve Bradford MD Apr 17, 2019 10:06
[2019-04-17] MEDS ORDERED: fentaNYL 100 mcg/2 mL IV PRN (10:15)
--- NOTE | 2019-04-17 10:22 | Infectious Diseases Prog Note ---
Assessment/Plan Assessment/Plan antibiotics : vancomycin iv, cefepime 2..20- A 1. leucocytosis resolved 2. renal failure on dialysis 3. hypertension 4, cardiomyopathy 5. CVA P 1. continue iv vancomycin 2 more days 2. will follow up cultures Subjective ROS Limited/Unobtainable: Yes Allergies: Coded Allergies: ASPIRIN (Unverified Allergy, Unknown, 04/13/19) PENICILLINS (Unverified Allergy, Unknown, 04/13/19) Objective Vital Signs Last 24 Hour Vital Signs Date Time Temp Pulse Resp B/P (MAP) Pulse Ox O2 Delivery O2 Flow Rate FiO2 04/17/19 04:00 92 04/17/19 04:00 98.2 92 19 120/62 (81) 96 04/17/19 00:00 86 04/17/19 00:00 97.9 98 20 130/65 (86) 99 04/16/19 21:00 83 117/68 04/16/19 21:00 Room Air 04/16/19 21:00 Room Air 04/16/19 20:00 81 04/16/19 20:00 97.9 83 20 117/68 (84) 98 04/16/19 16:00 82 04/16/19 16:00 98.1 86 18 120/66 (84) 100 04/16/19 12:00 81 04/16/19 12:00 97.7 86 19 111/58 (75) 96 04/16/19 10:43 68 20 98 Height (Feet): 5 Height (Inches): 7.00 Weight (Pounds): 202 Respiratory/Chest: lungs clear Cardiovascular: normal rate, regular rhythm Abdomen: soft, non tender Extremities: no edema Microbiology Date/Time Source Procedure Growth Status 04/14/19 12:00 Blood Blood Culture - Preliminary NO GROWTH AFTER 48 HOURS Resulted Laboratory Tests Test 04/17/19 05:30 White Blood Count 9.3 K/UL (4.8-10.8) Red Blood Count 3.00 M/UL (4.20-5.40) L Hemoglobin 8.7 G/DL (12.0-16.0) L Hematocrit 26.0 % (37.0-47.0) L Mean Corpuscular Volume 87 FL (80-99) Mean Corpuscular Hemoglobin 29.0 PG (27.0-31.0) Mean Corpuscular Hemoglobin Concent 33.4 G/DL (32.0-36.0) Red Cell Distribution Width 13.6 % (11.6-14.8) Platelet Count 223 K/UL (150-450) Mean Platelet Volume 4.4 FL (6.5-10.1) L Neutrophils (%) (Auto) 76.9 % (45.0-75.0) H Lymphocytes (%) (Auto) 10.4 % (20.0-45.0) L Monocytes (%) (Auto) 9.2 % (1.0-10.0) Eosinophils (%) (Auto) 3.2 % (0.0-3.0) H Basophils (%) (Auto) 0.3 % (0.0-2.0) Prothrombin Time 10.2 SEC (9.30-11.50) Prothromb Time International Ratio 1.0 (0.9-1.1) Activated Partial Thromboplast Time 30 SEC (23-33) Sodium Level 134 MMOL/L (136-145) L Potassium Level 3.3 MMOL/L (3.5-5.1) L Chloride Level 95 MMOL/L (98-107) L Carbon Dioxide Level 29 MMOL/L (21-32) Anion Gap 10 mmol/L (5-15) Blood Urea Nitrogen 24 mg/dL (7-18) H Creatinine 6.2 MG/DL (0.55-1.30) H Estimat Glomerular Filtration Rate 8.2 mL/min (>60) Glucose Level 83 MG/DL (74-106) Calcium Level 9.0 MG/DL (8.5-10.1) Total Bilirubin 0.5 MG/DL (0.2-1.0) Aspartate Amino Transf (AST/SGOT) 11 U/L (15-37) L Alanine Aminotransferase (ALT/SGPT) 16 U/L (12-78) Alkaline Phosphatase 51 U/L (46-116) Pro-B-Type Natriuretic Peptide 2297 pg/mL (0-125) H Total Protein 6.3 G/DL (6.4-8.2) L Albumin 2.5 G/DL (3.4-5.0) L Globulin 3.8 g/dL Albumin/Globulin Ratio 0.7 (1.0-2.7) L Random Vancomycin Level 28.1 ug/mL Current Medications Medications (Trade) Dose Ordered Sig/Chris Route PRN Reason Start Time Stop Time Status Last Admin Dose Admin Acetaminophen (Tylenol) 500 mg Q6H PRN ORAL Mild Pain/Temp > 100.5 04/14/19 20:00 05/13/19 19:59 04/15/19 17:05 Acetaminophen (Tylenol) 650 mg Q6H PRN ORAL Mild Pain/Temp > 100.5 04/14/19 22:00 05/14/19 21:59 Carvedilol (Coreg) 12.5 mg EVERY 12 HOURS ORAL 04/14/19 21:00 05/13/19 20:59 04/16/19 09:24 Diphenhydramine HCl (Benadryl) 25 mg Q6H PRN ORAL Itching 04/14/19 20:00 05/13/19 19:59 Fentanyl Citrate (Sublimaze 100 mcg/2 mL) 25 mcg Q10M PRN IV Moderate Pain (Pain Scale 4-6) 04/17/19 10:15 UNV Ondansetron HCl (Zofran) 4 mg Q1H PRN IVP Nausea & Vomiting 04/17/19 10:15 UNV Ondansetron HCl (Zofran) 4 mg Q6H PRN IVP Nausea & Vomiting 04/14/19 20:00 05/14/19 19:59 Pantoprazole (Protonix) 40 mg EVERY 12 HOURS IVP 04/14/19 21:00 05/13/19 20:59 04/17/19 08:59 Sevelamer Carbonate (Renvela) 800 mg THREE TIMES A DAY ORAL 04/15/19 09:00 05/13/19 17:59 04/16/19 17:56 Sodium Chloride 1,000 ml @ 10 mls/hr Q24H IVLG 04/17/19 10:14 04/17/19 12:13 UNV Sodium Chloride 1,000 ml @ 500 mls/hr Q2H PRN IVLG sbp<90 during hd 04/16/19 16:51 05/16/19 16:50 Vancomycin HCl (Vanco rx to dose) 1 ea DAILY PRN MISC Per rx protocol 04/15/19 09:00 05/13/19 20:59 Madeline Shetty MD Apr 17, 2019 10:22
--- NOTE | 2019-04-17 10:23 | NUR ---
CASE MANAGEMENT:REVIEW 04/17/19 SI: BLEEDING SHUNT. ANEMIA. SEPSIS S/P 3 UNITS PRBC'S 98.2 92 19 120/62 96% ON RA H/H-8.7/26.0 K-3.3 BUN+24 CR+6.2 BNP+2297 IS: IV PROTONIX Q12 NPO : TELEMETRY STATUS DCP: FROM HOME PLAN: TO SURGERY FOR: SHUNT EXPLORATION,POSSIBLE REVISION, LIGATION OR REMOVAL
[2019-04-17] MEDS ORDERED: Sodium Chloride 10ml vial INJ ONE (12:02)
[2019-04-17] MEDS ORDERED: Heparin Sod 1000 units/ml 10ml ONE (12:03)
--- NOTE | 2019-04-17 12:53 | Immediate Post-Op Evaluation ---
Immediate Post-Op Evalulation Immediate Post-Op Evalulation Procedure: Revision of L arm A-V shunt aneurysm excision Date of Evaluation: Apr 17, 2019 Time of Evaluation: 12:52 IV Fluids: 750 Blood Products: 1 unit of PRBC Estimated Blood Loss: 250 Urinary Output: none Blood Pressure Systolic: 136 Blood Pressure Diastolic: 77 Pulse Rate: 86 Respiratory Rate: 20 O2 Sat by Pulse Oximetry: 99 Temperature (Fahrenheit): 97.6 Pain Score (1-10): 1 Nausea: No Vomiting: No Complications none Patient Status: awake, patent, none Hydration Status: adequate Omid Ordaz MD Apr 17, 2019 12:53
--- NOTE | 2019-04-17 12:55 | Nephrology Progress Note ---
Assessment/Plan Problem List: (1) AVF (arteriovenous fistula) Assessment: s/p bleed with collapsed bullae, possible occult infection (2) End stage renal disease on dialysis (3) Hemorrhagic shock Plan HD 04/15 , d/w dr santos to place permcath to rest avf done, HD 04/15, bled again and surgery 04/16-0-seen postop in RR, VSS, d/w dr santos Subjective Constitutional: Reports: weakness HEENT: Reports: no symptoms Genitourinary: Reports: no symptoms Neurologic/Psychiatric: Reports: pre-existing deficit Objective Objective Last 24 Hour Vital Signs Date Time Temp Pulse Resp B/P (MAP) Pulse Ox O2 Delivery O2 Flow Rate FiO2 04/17/19 09:00 Room Air 04/17/19 09:00 Room Air 04/17/19 09:00 89 140/92 04/17/19 08:00 89 04/17/19 08:00 97.6 94 19 140/92 (108) 96 04/17/19 04:00 92 04/17/19 04:00 98.2 92 19 120/62 (81) 96 04/17/19 00:00 86 04/17/19 00:00 97.9 98 20 130/65 (86) 99 04/16/19 21:00 83 117/68 04/16/19 21:00 Room Air 04/16/19 21:00 Room Air 04/16/19 20:00 81 04/16/19 20:00 97.9 83 20 117/68 (84) 98 04/16/19 16:00 82 04/16/19 16:00 98.1 86 18 120/66 (84) 100 Intake and Output 04/16/19 04/17/19 19:00 07:00 Intake Total 450 ml 2450 ml Output Total 50 ml Balance 400 ml 2450 ml Intake Oral 450 ml 200 ml Blood Product 250 ml Hemodialysis 2000 ml Output Urine Total 50 ml # Voids 2 Laboratory Tests 04/17/19 05:30: White Blood Count 9.3, Red Blood Count 3.00L, Hemoglobin 8.7L, Hematocrit 26.0L , Mean Corpuscular Volume 87, Mean Corpuscular Hemoglobin 29.0, Mean Corpuscular Hemoglobin Concent 33.4, Red Cell Distribution Width 13.6, Platelet Count 223, Mean Platelet Volume 4.4L, Neutrophils (%) (Auto) 76.9H, Lymphocytes (%) (Auto) 10.4L, Monocytes (%) (Auto) 9.2, Eosinophils (%) (Auto) 3.2H, Basophils (%) (Auto) 0.3, Prothrombin Time 10.2, Prothromb Time International Ratio 1.0, Activated Partial Thromboplast Time 30, Sodium Level 134L, Potassium Level 3.3L, Chloride Level 95L, Carbon Dioxide Level 29, Anion Gap 10, Blood Urea Nitrogen 24H, Creatinine 6.2H, Estimat Glomerular Filtration Rate 8.2, Glucose Level 83, Calcium Level 9.0, Total Bilirubin 0.5, Aspartate Amino Transf (AST/SGOT) 11L, Alanine Aminotransferase (ALT/SGPT) 16, Alkaline Phosphatase 51, Pro-B-Type Natriuretic Peptide 2297H, Total Protein 6.3L, Albumin 2.5L, Globulin 3.8, Albumin/Globulin Ratio 0.7L, Random Vancomycin Level 28.1 Height (Feet): 5 Height (Inches): 7.00 Weight (Pounds): 202 General Appearance: no apparent distress, morbidly obese EENT: normal ENT inspection Neck: normal alignment, supple Cardiovascular: regular rhythm Respiratory/Chest: lungs clear Abdomen: non tender, soft Extremities: no edema 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
--- NOTE | 2019-04-17 12:56 | Brief Operative Note ---
Immediate Post Operative Note Operative Note Pre-op Diagnosis: bleeding shunt; ESRD Procedure: left arm AV shunt exploration and repair of bleeding aneurysm with wide debridement; re-transposition of basilic vein AVF Post-op Diagnosis: same as pre-op Findings: consistent w/pre-op dx studies Surgeon: Harmony Gomez Anesthesiologist: Martha Ordaz Anesthesia: general Specimen: yes - debrided AVF aneurysm and skin Complications: none Condition: stable Fluids: see anesth. record Estimated Blood Loss: volume - 100 ml Drains: none Implant(s) used?: No Davide Gomez MD Apr 17, 2019 12:56
--- NOTE | 2019-04-17 14:15 | NUR ---
NURSE NOTES: RECEIVED PT VIA BED ESCORTED BY SHEILA SINGLETON STAFF OF RR.PT S/P LT UA AV SHUNT EXPLORATION AND REPAIR OF BLEEDING ANEURISM DONE BY DR BERNSTEIN. PT AWAKE AND ALERT ORIENTED X3 ,DENIES PAIN OR ANY DISCOMFORT AT THIS TIME. LT UA WITH SURGICAL DSG DRY AND INTACT, AND ELEVATED LT ARM WITH PILLOW PER M.D ORDERS .PERIPHERAL PULSES PALPABLE AND IV-SHUNT WITH GOOD BRUIT AND THRILL. RECEIVED BED SIDE REPORT FROM SHEILA SINGLETON. V/S STABLE. PT FAMILY AT BED SIDE. NO ACUTE DISTRESS NOTED AT THIS TIME. WILL CONT TO MONITOR.
--- NOTE | 2019-04-17 19:20 | NUR ---
HAND-OFF: Report given to .LAKISHA SINGLETON.
--- NOTE | 2019-04-17 19:30 | NUR ---
NURSE NOTES: Received report from ARELI Parsons. Patient is in bed, awake and responsive. Breathing regular and unlabored with no s/s of SOB noted. Repaired AV shunt on L arm is covered with dressing, dry, and intact. IV access patent, intact, and saline locked. Precaution signs are placed over patient's bed per MD orders. Patient denies any pain or discomfort at this time. Bed remains in lowest position, breaks engaged, and call light is within reach at all times. All other needs attended to, patient remains stable, will continue to monitor.
[2019-04-18] VITALS: BP 119/71
--- NOTE | 2019-04-18 02:00 | NUR ---
NURSE NOTES: L-arm dressing remains dry and intact. Patient is stable.
[2019-04-18 04:00] VITALS: BP 109/59
[2019-04-18] MEDS ORDERED: Heparin 1000 units/ml 1ml Vial INJ PRN (06:00)
--- NOTE | 2019-04-18 06:51 | NUR ---
NURSE NOTES: Patient's L-arm repair site remains intact, no c/o pain or discomfort noted. Patient is stable.
[2019-04-18 07:34] LABS: BASOPHILS % (AUTO) 0.5 % (0.0-2.0); EOSINOPHILS % (AUTO) 3.5 % (0.0-3.0); HEMOGLOBIN 8.9 G/DL (12.0-16.0); LYMPHOCYTES % (AUTO) 12.1 % (20.0-45.0); MEAN CORPUSCULAR VOLUME 87 FL (80-99); MONOCYTES % (AUTO) 10.2 % (1.0-10.0); NEUTROPHILS % (AUTO) 73.8 % (45.0-75.0); PLATELET COUNT 221 K/UL (150-450); RED BLOOD COUNT 2.98 M/UL (4.20-5.40); RED CELL DISTRIBUTION WIDTH 13.3 % (11.6-14.8); WHITE BLOOD COUNT 9.3 K/UL (4.8-10.8)
--- NOTE | 2019-04-18 07:36 | NUR ---
NURSE NOTES: Nurse report given by ARELI Garcia. Patient's in stable condition, eating breakfast in bed in high bhat position, eyes open spontaneously, no s/s of pain, no s/s of distress or SOB, AO x 3. Bed low and locked, call light within reach, side rails x 3, bed alarm is armed, bedside commode present at bedside, patient fall teaching was given. Left arm surgical site is intact, no s/s of pain, infection or active bleeding, dressing intact. IV saline locked, patent and asymptomatic. Will continue to monitor.
--- NOTE | 2019-04-18 07:38 | NUR ---
HAND-OFF: Report given to ARELI Hassan. Plan of care endorsed. Patient remains stable.
[2019-04-18 07:40] LABS: ANION GAP 8 mmol/L (5-15); BLOOD UREA NITROGEN 37 mg/dL (7-18); CALCIUM 9.1 MG/DL (8.5-10.1); CARBON DIOXIDE 30 MMOL/L (21-32); CHLORIDE 96 MMOL/L (98-107); CREATININE 8.6 MG/DL (0.55-1.30); SODIUM 134 MMOL/L (136-145)
[2019-04-18 08:00] VITALS: BP 117/66
[2019-04-18] MEDS: Pantoprazole Inj IVP SCH ×2 (08:37→20:42)
[2019-04-18] MEDS: Carvedilol 12.5mg tab ORAL SCH ×2 (08:37→20:39)
[2019-04-18] MEDS: Renvela 800mg Pkt ORAL SCH ×3 (08:37→17:51)
--- NOTE | 2019-04-18 09:00 | NUR ---
NURSE NOTES: Dialysis Nurse Parrish called to notified she will come to do dialysis for the patient in the afternoon. Will keep update.
--- NOTE | 2019-04-18 09:32 | Critical Care Progress Note ---
Assessment/Plan Assessment/Plan IMPRESSION: 1. Bleeding AV fistula, significant amount of blood loss noted. 2. Anemia due to the above. 3. End-stage renal disease. 4. Mild protein-calorie malnutrition. 5. Elevated natriuretic peptide. 6. Lactic acidemia. 7. Possible sepsis. 8. No evidence of coagulopathy. 9. Hyperkalemia. PLAN care as is antibiotics per ID; on vanco HD monitor for change vascular follow up for bleeding and clearance nutrition with PO reviewed care in detail impression, plan, and exam edited and reviewed in detail care discussed with director of occupational therapy - Subjective Condition: improving EKG Rhythm: Sinus Rhythm I&O: Intake and Output 04/17/19 04/18/19 19:00 07:00 Intake Total 1170 ml Output Total 250 ml 200 ml Balance 920 ml -200 ml Intake Oral 120 ml IV Total 750 ml Blood Product 300 ml Output Urine Total 200 ml Estimated Blood Loss 250 ml Critical Care - Objective Last 24 Hour Vital Signs Date Time Temp Pulse Resp B/P (MAP) Pulse Ox O2 Delivery O2 Flow Rate FiO2 04/18/19 09:00 Room Air 04/18/19 08:37 64 117/66 04/18/19 08:00 98.1 64 20 117/66 (83) 98 04/18/19 08:00 88 04/18/19 04:00 86 04/18/19 04:00 97.4 90 18 109/59 (76) 98 04/18/19 00:00 84 04/18/19 00:00 98.0 88 18 119/71 (87) 96 04/17/19 21:00 Room Air 04/17/19 21:00 Room Air 04/17/19 20:00 98.0 90 18 112/62 (79) 96 04/17/19 20:00 90 04/17/19 16:00 98.1 90 18 137/70 (92) 100 04/17/19 16:00 87 04/17/19 14:00 97.9 87 15 120/72 100 Nasal Cannula 3 04/17/19 13:45 88 15 126/73 100 Nasal Cannula 3 04/17/19 13:30 87 13 128/71 100 Nasal Cannula 3 04/17/19 13:17 89 15 127/73 100 Nasal Cannula 3 04/17/19 13:07 87 15 134/77 100 Nasal Cannula 3 04/17/19 12:57 87 11 134/81 100 Nasal Cannula 3 04/17/19 12:53 86 20 99 04/17/19 12:52 88 14 126/77 100 Simple Mask 6 04/17/19 12:47 97.8 88 15 136/87 100 Simple Mask 6 Labs: Labs Test 04/16/19 05:30 04/16/19 08:40 04/17/19 05:30 04/18/19 05:54 White Blood Count 9.7 K/UL (4.8-10.8) 10.5 K/UL (4.8-10.8) 9.3 K/UL (4.8-10.8) 9.3 K/UL (4.8-10.8) Red Blood Count 2.86 M/UL (4.20-5.40) 2.79 M/UL (4.20-5.40) 3.00 M/UL (4.20-5.40) 2.98 M/UL (4.20-5.40) Hemoglobin 8.1 G/DL (12.0-16.0) 7.8 G/DL (12.0-16.0) 8.7 G/DL (12.0-16.0) 8.9 G/DL (12.0-16.0) Hematocrit 24.7 % (37.0-47.0) 23.9 % (37.0-47.0) 26.0 % (37.0-47.0) 26.0 % (37.0-47.0) Mean Corpuscular Volume 86 FL (80-99) 86 FL (80-99) 87 FL (80-99) 87 FL (80- 99) Mean Corpuscular Hemoglobin 28.3 PG (27.0-31.0) 28.1 PG (27.0-31.0) 29.0 PG (27.0-31.0) 29.9 PG (27.0-31.0) Mean Corpuscular Hemoglobin Concent 32.8 G/DL (32.0-36.0) 32.7 G/DL (32.0-36.0) 33.4 G/DL (32.0-36.0) 34.2 G/DL (32.0-36.0) Red Cell Distribution Width 13.4 % (11.6-14.8) 13.2 % (11.6-14.8) 13.6 % (11.6-14.8) 13.3 % (11.6-14.8) Platelet Count 235 K/UL (150-450) 219 K/UL (150-450) 223 K/UL (150-450) 221 K/UL (150-450) Mean Platelet Volume 4.1 FL (6.5-10.1) 4.0 FL (6.5-10.1) 4.4 FL (6.5-10.1) 4.6 FL (6.5-10.1) Neutrophils (%) (Auto) 76.9 % (45.0-75.0) % (45.0-75.0) 76.9 % (45.0-75.0) 73.8 % (45.0-75.0) Lymphocytes (%) (Auto) 13.1 % (20.0-45.0) % (20.0-45.0) 10.4 % (20.0-45.0) 12.1 % (20.0-45.0) Monocytes (%) (Auto) 6.5 % (1.0-10.0) % (1.0-10.0) 9.2 % (1.0-10.0) 10.2 % (1.0-10.0) Eosinophils (%) (Auto) 3.3 % (0.0-3.0) % (0.0-3.0) 3.2 % (0.0-3.0) 3.5 % (0.0-3.0) Basophils (%) (Auto) 0.3 % (0.0-2.0) % (0.0-2.0) 0.3 % (0.0-2.0) 0.5 % (0.0-2.0) Sodium Level 128 MMOL/L (136-145) 134 MMOL/L (136-145) 134 MMOL/L (136-145) Potassium Level 4.1 MMOL/L (3.5-5.1) 3.3 MMOL/L (3.5-5.1) 4.0 MMOL/L (3.5-5.1) Chloride Level 98 MMOL/L (98-107) 95 MMOL/L (98-107) 96 MMOL/L (98-107) Carbon Dioxide Level 26 MMOL/L (21-32) 29 MMOL/L (21-32) 30 MMOL/L (21-32) Anion Gap 4 mmol/L (5-15) 10 mmol/L (5-15) 8 mmol/L (5-15) Blood Urea Nitrogen 44 mg/dL (7-18) 24 mg/dL (7-18) 37 mg/dL (7-18) Creatinine 9.2 MG/DL (0.55-1.30) 6.2 MG/DL (0.55-1.30) 8.6 MG/DL (0.55-1.30) Estimat Glomerular Filtration Rate 5.2 mL/min (>60) 8.2 mL/min (>60) 5.7 mL/min (>60) Glucose Level 77 MG/DL (74-106) 83 MG/DL (74-106) 101 MG/DL (74-106) Calcium Level 9.1 MG/DL (8.5-10.1) 9.0 MG/DL (8.5-10.1) 9.1 MG/DL (8.5-10.1) Differential Total Cells Counted 100 Neutrophils % (Manual) 78 % (45-75) Lymphocytes % (Manual) 15 % (20-45) Monocytes % (Manual) 4 % (1-10) Eosinophils % (Manual) 3 % (0-3) Basophils % (Manual) 0 % (0-2) Band Neutrophils 0 % (0-8) Platelet Estimate Adequate Platelet Morphology Normal Hypochromasia 1+ Prothrombin Time 10.2 SEC (9.30-11.50) Prothromb Time International Ratio 1.0 (0.9-1.1) Activated Partial Thromboplast Time 30 SEC (23-33) Total Bilirubin 0.5 MG/DL (0.2-1.0) Aspartate Amino Transf (AST/SGOT) 11 U/L (15-37) Alanine Aminotransferase (ALT/SGPT) 16 U/L (12-78) Alkaline Phosphatase 51 U/L (46-116) Pro-B-Type Natriuretic Peptide 2297 pg/mL (0-125) Total Protein 6.3 G/DL (6.4-8.2) Albumin 2.5 G/DL (3.4-5.0) Globulin 3.8 g/dL Albumin/Globulin Ratio 0.7 (1.0-2.7) Random Vancomycin Level 28.1 ug/mL Test 04/18/19 09:00 Objective: GENERAL: A well-developed female, appears to be chronically ill. NAD HEENT: Overall negative. NECK: Supple. No adenopathy LUNGS: Good air entry overall. without rhonchi or wheeze CARDIAC: S1 and S2. Regular rate and rhythm without murmurs, rubs, gallops. ABDOMEN: Soft, nontender, nondistended. EXTREMITIES: No cyanosis or clubbing. No edema. Left upper extremity fistula noted with mild bulging. NEURO: nonfocal Eric Earl MD Apr 18, 2019 09:32
[2019-04-18 09:36] LABS: ANION GAP 11 mmol/L (5-15); BLOOD UREA NITROGEN 37 mg/dL (7-18); CALCIUM 8.9 MG/DL (8.5-10.1); CARBON DIOXIDE 26 MMOL/L (21-32); CHLORIDE 96 MMOL/L (98-107); CREATININE 8.5 MG/DL (0.55-1.30); POTASSIUM 3.9 MMOL/L (3.5-5.1); SODIUM 133 MMOL/L (136-145)
--- NOTE | 2019-04-18 10:05 | NUR ---
NURSE NOTES: Notified DR. Earl regarding patient's having trouble to pass bowel movement since . ordered Milk of Magnesia 30CC QD PRN. Order acknowledged and carried out.
[2019-04-18] MEDS ORDERED: Milk of Magnesia 30ml Ud ORAL PRN (10:15)
[2019-04-18 10:20] LABS: BASOPHILS % (AUTO) 0.3 % (0.0-2.0); HEMOGLOBIN 9.1 G/DL (12.0-16.0); LYMPHOCYTES % (AUTO) 7.7 % (20.0-45.0); MEAN CORPUSCULAR VOLUME 87 FL (80-99); MONOCYTES % (AUTO) 9.5 % (1.0-10.0); NEUTROPHILS % (AUTO) 79.5 % (45.0-75.0); PLATELET COUNT 211 K/UL (150-450); RED BLOOD COUNT 3.09 M/UL (4.20-5.40); RED CELL DISTRIBUTION WIDTH 13.4 % (11.6-14.8)
--- NOTE | 2019-04-18 11:37 | 48 Hour Post Anesthesia Eval ---
Post Anesthesia Evaluation Procedure: Revision of L arm A-V shunt aneurysm excision Date of Evaluation: Apr 18, 2019 Time of Evaluation: 11:36 Blood Pressure Systolic: 126 0: 74 Pulse Rate: 68 Respiratory Rate: 22 Temperature (Fahrenheit): 97.6 O2 Sat by Pulse Oximetry: 98 Airway: patent Nausea: No Vomiting: No Pain Intensity: 2 Hydration Status: adequate Cardiopulmonary Status: stable Mental Status/LOC: patient returned to baseline Follow-up Care/Observations: n/a Post-Anesthesia Complications: none Follow-up care needed: N/A Omid Ordaz MD Apr 18, 2019 11:37
--- NOTE | 2019-04-18 11:48 | Infectious Diseases Prog Note ---
Assessment/Plan Assessment/Plan A 1. Leucocytosis resolved 2. ESRD on dialysis 3. hypertension 4, cardiomyopathy 5. CVA 6. AV fistula aneurysmal bleeding 7. 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 continue iv vancomycin 1 more day 2. will follow up cultures Subjective ROS Limited/Unobtainable: No Constitutional: Reports: no symptoms Respiratory: Reports: dry cough Gastrointestinal/Abdominal: Reports: no symptoms Genitourinary: Reports: no symptoms Musculoskeletal: Reports: pain, other - left arm surgical site Allergies: Coded Allergies: ASPIRIN (Unverified Allergy, Unknown, 04/13/19) PENICILLINS (Unverified Allergy, Unknown, 04/13/19) Objective Vital Signs Last 24 Hour Vital Signs Date Time Temp Pulse Resp B/P (MAP) Pulse Ox O2 Delivery O2 Flow Rate FiO2 04/18/19 11:37 68 22 98 04/18/19 09:00 Room Air 04/18/19 08:37 64 117/66 04/18/19 08:00 98.1 64 20 117/66 (83) 98 04/18/19 08:00 88 04/18/19 04:00 86 04/18/19 04:00 97.4 90 18 109/59 (76) 98 04/18/19 00:00 84 04/18/19 00:00 98.0 88 18 119/71 (87) 96 04/17/19 21:00 Room Air 04/17/19 21:00 Room Air 04/17/19 20:00 98.0 90 18 112/62 (79) 96 04/17/19 20:00 90 04/17/19 16:00 98.1 90 18 137/70 (92) 100 04/17/19 16:00 87 04/17/19 14:00 97.9 87 15 120/72 100 Nasal Cannula 3 04/17/19 13:45 88 15 126/73 100 Nasal Cannula 3 04/17/19 13:30 87 13 128/71 100 Nasal Cannula 3 04/17/19 13:17 89 15 127/73 100 Nasal Cannula 3 04/17/19 13:07 87 15 134/77 100 Nasal Cannula 3 04/17/19 12:57 87 11 134/81 100 Nasal Cannula 3 04/17/19 12:53 86 20 99 04/17/19 12:52 88 14 126/77 100 Simple Mask 6 04/17/19 12:47 97.8 88 15 136/87 100 Simple Mask 6 Height (Feet): 5 Height (Inches): 7.00 Weight (Pounds): 203 General Appearance: no acute distress HEENT: mucous membranes moist Respiratory/Chest: lungs clear Cardiovascular: normal rate, other - Permacath Abdomen: soft, non tender Extremities: other - left arm edema Skin: no rash Neurologic/Psychiatric: alert, oriented x 3, responsive Laboratory Tests Test 04/18/19 05:54 04/18/19 09:00 White Blood Count 9.3 K/UL (4.8-10.8) 10.0 K/UL (4.8-10.8) Red Blood Count 2.98 M/UL (4.20-5.40) L 3.09 M/UL (4.20-5.40) L Hemoglobin 8.9 G/DL (12.0-16.0) L 9.1 G/DL (12.0-16.0) L Hematocrit 26.0 % (37.0-47.0) L 27.0 % (37.0-47.0) L Mean Corpuscular Volume 87 FL (80-99) 87 FL (80-99) Mean Corpuscular Hemoglobin 29.9 PG (27.0-31.0) 29.5 PG (27.0-31.0) Mean Corpuscular Hemoglobin Concent 34.2 G/DL (32.0-36.0) 33.8 G/DL (32.0-36.0) Red Cell Distribution Width 13.3 % (11.6-14.8) 13.4 % (11.6-14.8) Platelet Count 221 K/UL (150-450) 211 K/UL (150-450) Mean Platelet Volume 4.6 FL (6.5-10.1) L 4.5 FL (6.5-10.1) L Neutrophils (%) (Auto) 73.8 % (45.0-75.0) 79.5 % (45.0-75.0) H Lymphocytes (%) (Auto) 12.1 % (20.0-45.0) L 7.7 % (20.0-45.0) L Monocytes (%) (Auto) 10.2 % (1.0-10.0) H 9.5 % (1.0-10.0) Eosinophils (%) (Auto) 3.5 % (0.0-3.0) H 3.0 % (0.0-3.0) Basophils (%) (Auto) 0.5 % (0.0-2.0) 0.3 % (0.0-2.0) Sodium Level 134 MMOL/L (136-145) L 133 MMOL/L (136-145) L Potassium Level 4.0 MMOL/L (3.5-5.1) 3.9 MMOL/L (3.5-5.1) Chloride Level 96 MMOL/L (98-107) L 96 MMOL/L (98-107) L Carbon Dioxide Level 30 MMOL/L (21-32) 26 MMOL/L (21-32) Anion Gap 8 mmol/L (5-15) 11 mmol/L (5-15) Blood Urea Nitrogen 37 mg/dL (7-18) H 37 mg/dL (7-18) H Creatinine 8.6 MG/DL (0.55-1.30) H 8.5 MG/DL (0.55-1.30) H Estimat Glomerular Filtration Rate 5.7 mL/min (>60) 5.7 mL/min (>60) Glucose Level 101 MG/DL (74-106) 121 MG/DL (74-106) H Calcium Level 9.1 MG/DL (8.5-10.1) 8.9 MG/DL (8.5-10.1) Current Medications Medications (Trade) Dose Ordered Sig/Chris Route PRN Reason Start Time Stop Time Status Last Admin Dose Admin Acetaminophen (Tylenol) 500 mg Q6H PRN ORAL Mild Pain/Temp > 100.5 04/14/19 20:00 05/13/19 19:59 04/15/19 17:05 Acetaminophen (Tylenol) 650 mg Q6H PRN ORAL Mild Pain/Temp > 100.5 04/14/19 22:00 05/14/19 21:59 Carvedilol (Coreg) 12.5 mg EVERY 12 HOURS ORAL 04/14/19 21:00 05/13/19 20:59 04/18/19 08:37 Diphenhydramine HCl (Benadryl) 25 mg Q6H PRN ORAL Itching 04/14/19 20:00 05/13/19 19:59 Heparin Sodium (Porcine) (Heparin) 1,000 unit POSTHD PRN INJ POSTHD 04/18/19 06:00 04/18/19 23:59 Magnesium Hydroxide (Mom) 30 ml DAILYPRN PRN ORAL Constipation 04/18/19 10:15 05/18/19 10:14 Ondansetron HCl (Zofran) 4 mg Q6H PRN IVP Nausea & Vomiting 04/14/19 20:00 05/14/19 19:59 Pantoprazole (Protonix) 40 mg EVERY 12 HOURS IVP 04/14/19 21:00 05/13/19 20:59 04/18/19 08:37 Sevelamer Carbonate (Renvela) 800 mg THREE TIMES A DAY ORAL 04/15/19 09:00 05/13/19 17:59 04/18/19 08:37 Vancomycin HCl (Vanco rx to dose) 1 ea DAILY PRN MISC Per rx protocol 04/15/19 09:00 05/13/19 20:59 Jayy Walker MD Apr 18, 2019 11:48
[2019-04-18 12:00] VITALS: BP 119/70
--- NOTE | 2019-04-18 14:49 | Nephrology Progress Note ---
Assessment/Plan Problem List: (1) AVF (arteriovenous fistula) Assessment: s/p bleed with collapsed bullae, possible occult infection (2) End stage renal disease on dialysis (3) Hemorrhagic shock Plan HD 04/15 , d/w dr santos to place permcath to rest avf done, HD 04/15, bled again and surgery 04/16-0-seen postop in [facility], VSS, d/w dr santos, stable 04/17 HD 04/17 Subjective Constitutional: Reports: weakness HEENT: Reports: no symptoms Genitourinary: Reports: no symptoms Neurologic/Psychiatric: Reports: pre-existing deficit Objective Objective Last 24 Hour Vital Signs Date Time Temp Pulse Resp B/P (MAP) Pulse Ox O2 Delivery O2 Flow Rate FiO2 04/18/19 12:00 84 04/18/19 12:00 98.7 83 19 119/70 (86) 100 04/18/19 11:37 68 22 98 04/18/19 09:00 Room Air 04/18/19 08:37 64 117/66 04/18/19 08:00 98.1 64 20 117/66 (83) 98 04/18/19 08:00 88 04/18/19 04:00 86 04/18/19 04:00 97.4 90 18 109/59 (76) 98 04/18/19 00:00 84 04/18/19 00:00 98.0 88 18 119/71 (87) 96 04/17/19 21:00 Room Air 04/17/19 21:00 Room Air 04/17/19 20:00 98.0 90 18 112/62 (79) 96 04/17/19 20:00 90 04/17/19 16:00 98.1 90 18 137/70 (92) 100 04/17/19 16:00 87 Intake and Output 04/17/19 04/18/19 19:00 07:00 Intake Total 1170 ml Output Total 250 ml 200 ml Balance 920 ml -200 ml Intake Oral 120 ml IV Total 750 ml Blood Product 300 ml Output Urine Total 200 ml Estimated Blood Loss 250 ml Laboratory Tests 04/18/19 05:54: White Blood Count 9.3, Red Blood Count 2.98L, Hemoglobin 8.9L, Hematocrit 26.0L , Mean Corpuscular Volume 87, Mean Corpuscular Hemoglobin 29.9, Mean Corpuscular Hemoglobin Concent 34.2, Red Cell Distribution Width 13.3, Platelet Count 221, Mean Platelet Volume 4.6L, Neutrophils (%) (Auto) 73.8, Lymphocytes ( %) (Auto) 12.1L, Monocytes (%) (Auto) 10.2H, Eosinophils (%) (Auto) 3.5H, Basophils (%) (Auto) 0.5, Sodium Level 134L, Potassium Level 4.0, Chloride Level 96L, Carbon Dioxide Level 30, Anion Gap 8, Blood Urea Nitrogen 37H, Creatinine 8.6H, Estimat Glomerular Filtration Rate 5.7, Glucose Level 101, Calcium Level 9.1 04/18/19 09:00: White Blood Count 10.0, Red Blood Count 3.09L, Hemoglobin 9.1L, Hematocrit 27.0L , Mean Corpuscular Volume 87, Mean Corpuscular Hemoglobin 29.5, Mean Corpuscular Hemoglobin Concent 33.8, Red Cell Distribution Width 13.4, Platelet Count 211, Mean Platelet Volume 4.5L, Neutrophils (%) (Auto) 79.5H, Lymphocytes (%) (Auto) 7.7L, Monocytes (%) (Auto) 9.5, Eosinophils (%) (Auto) 3.0, Basophils (%) (Auto) 0.3, Sodium Level 133L, Potassium Level 3.9, Chloride Level 96L, Carbon Dioxide Level 26, Anion Gap 11, Blood Urea Nitrogen 37H, Creatinine 8.5H, Estimat Glomerular Filtration Rate 5.7, Glucose Level 121H, Calcium Level 8.9 Height (Feet): 5 Height (Inches): 7.00 Weight (Pounds): 203 General Appearance: no apparent distress, obese EENT: normal ENT inspection Neck: normal alignment Cardiovascular: normal rate, regular rhythm Respiratory/Chest: lungs clear Abdomen: non tender, soft Extremities: no edema, other - good bruit LUE 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
[2019-04-18 16:00] VITALS: BP 102/65
--- NOTE | 2019-04-18 16:43 | NUR ---
HAND-OFF: Report given to ARELI Mantilla. Plan of care endorsed.
--- NOTE | 2019-04-18 16:45 | NUR ---
NURSE NOTES: Called [facility] to inform about patient needing dialysis.
--- NOTE | 2019-04-18 17:00 | NUR ---
NURSE NOTES: Third call to [facility] hemodialysis to follow up regarding dialysis for today. Noted.
--- NOTE | 2019-04-18 19:26 | NUR ---
HAND-OFF: Report given to ARELI Green.
--- NOTE | 2019-04-18 19:36 | NUR ---
NURSE NOTES: Received report from ARELI Mantilla. Patient in bed receiving dialysis. There are no signs of distress or pain noted at this time. IV checked and patent. No signs of erythema, infiltration, or bleeding. Bed in the lowest position, brakes on, bed alarm on, side rails x 3, and call light within reach. Will continue plan of care.
[2019-04-18 20:00] VITALS: BP 103/72
[2019-04-19] VITALS: BP 111/70
--- NOTE | 2019-04-19 02:38 | NUR ---
NURSE NOTES: Patient in bed asleep. There are no signs of distress or pain noted at this time.
[2019-04-19 04:00] VITALS: BP 116/65
--- NOTE | 2019-04-19 07:35 | NUR ---
HAND-OFF: Report given to ARELI Barfield. Patient in bed eating her breakfast. There are no signs of distress or pain noted at this time. Plan of care endorsed.
--- NOTE | 2019-04-19 07:42 | NUR ---
NURSE NOTES: Received report from ARELI Orosco. Pt A/Ox3, observed pt eating breakfast, in high bhat's position. Pt breathing even and unlabored in 2L NC. Denies any pain, no s/sx of acute distress. Dressing intact on left upper arm, no bleeding observed. Bed on lowest position, call light within reach. Will continue plan of care.
[2019-04-19 07:57] VITALS: BP 126/74
[2019-04-19 08:39] VITALS: BP 126/74
[2019-04-19] MEDS: Carvedilol 12.5mg tab ORAL SCH (08:39)
[2019-04-19] MEDS: Renvela 800mg Pkt ORAL SCH (08:39)
[2019-04-19] MEDS: Pantoprazole Inj IVP SCH (08:39)
--- NOTE | 2019-04-19 08:40 | Critical Care Progress Note ---
Assessment/Plan Assessment/Plan IMPRESSION: 1. Bleeding AV fistula, significant amount of blood loss noted. s/p repair 2. Anemia due to the above. 3. End-stage renal disease. 4. Mild protein-calorie malnutrition. 5. Elevated natriuretic peptide. 6. Lactic acidemia. 7. Possible sepsis. 8. No evidence of coagulopathy. 9. Hyperkalemia. PLAN care as is antibiotics to dc today HD monitor for change vascular follow up and clearance nutrition with PO adequate reviewed care in detail impression, plan, and exam edited and reviewed in detail care discussed with tape librarian - Subjective Condition: stable EKG Rhythm: Sinus Rhythm I&O: Intake and Output 04/18/19 04/19/19 19:00 07:00 Intake Total 2250 ml 2000 ml Output Total 150 ml Balance 2250 ml 1850 ml Intake Oral 250 ml Hemodialysis 2000 ml 2000 ml Output Urine Total 150 ml # Voids 2 Critical Care - Objective Last 24 Hour Vital Signs Date Time Temp Pulse Resp B/P (MAP) Pulse Ox O2 Delivery O2 Flow Rate FiO2 04/19/19 08:16 Nasal Cannula 2.0 04/19/19 07:57 96.7 88 20 126/74 (91) 100 04/19/19 07:41 91 04/19/19 07:28 97 Nasal Cannula 2.0 28 04/19/19 04:00 82 04/19/19 04:00 97.0 86 16 116/65 (82) 97 04/19/19 00:00 85 04/19/19 00:00 98.1 83 19 111/70 (84) 96 04/18/19 21:00 Nasal Cannula 2.0 04/18/19 20:39 89 103/72 04/18/19 20:00 87 04/18/19 20:00 98.2 89 19 103/72 (82) 97 04/18/19 16:00 80 04/18/19 16:00 97.6 78 19 102/65 (77) 100 04/18/19 12:00 84 04/18/19 12:00 98.7 83 19 119/70 (86) 100 04/18/19 11:37 68 22 98 04/18/19 09:00 Room Air Labs: Labs Test 04/16/19 08:40 04/17/19 05:30 04/18/19 05:54 04/18/19 09:00 White Blood Count 10.5 K/UL (4.8-10.8) 9.3 K/UL (4.8-10.8) 9.3 K/UL (4.8-10.8) 10.0 K/UL (4.8-10.8) Red Blood Count 2.79 M/UL (4.20-5.40) 3.00 M/UL (4.20-5.40) 2.98 M/UL (4.20-5.40) 3.09 M/UL (4.20-5.40) Hemoglobin 7.8 G/DL (12.0-16.0) 8.7 G/DL (12.0-16.0) 8.9 G/DL (12.0-16.0) 9.1 G/DL (12.0-16.0) Hematocrit 23.9 % (37.0-47.0) 26.0 % (37.0-47.0) 26.0 % (37.0-47.0) 27.0 % (37.0-47.0) Mean Corpuscular Volume 86 FL (80-99) 87 FL (80-99) 87 FL (80-99) 87 FL (80- 99) Mean Corpuscular Hemoglobin 28.1 PG (27.0-31.0) 29.0 PG (27.0-31.0) 29.9 PG (27.0-31.0) 29.5 PG (27.0-31.0) Mean Corpuscular Hemoglobin Concent 32.7 G/DL (32.0-36.0) 33.4 G/DL (32.0-36.0) 34.2 G/DL (32.0-36.0) 33.8 G/DL (32.0-36.0) Red Cell Distribution Width 13.2 % (11.6-14.8) 13.6 % (11.6-14.8) 13.3 % (11.6-14.8) 13.4 % (11.6-14.8) Platelet Count 219 K/UL (150-450) 223 K/UL (150-450) 221 K/UL (150-450) 211 K/UL (150-450) Mean Platelet Volume 4.0 FL (6.5-10.1) 4.4 FL (6.5-10.1) 4.6 FL (6.5-10.1) 4.5 FL (6.5-10.1) Neutrophils (%) (Auto) % (45.0-75.0) 76.9 % (45.0-75.0) 73.8 % (45.0-75.0) 79.5 % (45.0-75.0) Lymphocytes (%) (Auto) % (20.0-45.0) 10.4 % (20.0-45.0) 12.1 % (20.0-45.0) 7.7 % (20.0-45.0) Monocytes (%) (Auto) % (1.0-10.0) 9.2 % (1.0-10.0) 10.2 % (1.0-10.0) 9.5 % (1.0-10.0) Eosinophils (%) (Auto) % (0.0-3.0) 3.2 % (0.0-3.0) 3.5 % (0.0-3.0) 3.0 % (0.0-3.0) Basophils (%) (Auto) % (0.0-2.0) 0.3 % (0.0-2.0) 0.5 % (0.0-2.0) 0.3 % (0.0-2.0) Differential Total Cells Counted 100 Neutrophils % (Manual) 78 % (45-75) Lymphocytes % (Manual) 15 % (20-45) Monocytes % (Manual) 4 % (1-10) Eosinophils % (Manual) 3 % (0-3) Basophils % (Manual) 0 % (0-2) Band Neutrophils 0 % (0-8) Platelet Estimate Adequate Platelet Morphology Normal Hypochromasia 1+ Prothrombin Time 10.2 SEC (9.30-11.50) Prothromb Time International Ratio 1.0 (0.9-1.1) Activated Partial Thromboplast Time 30 SEC (23-33) Sodium Level 134 MMOL/L (136-145) 134 MMOL/L (136-145) 133 MMOL/L (136-145) Potassium Level 3.3 MMOL/L (3.5-5.1) 4.0 MMOL/L (3.5-5.1) 3.9 MMOL/L (3.5-5.1) Chloride Level 95 MMOL/L (98-107) 96 MMOL/L (98-107) 96 MMOL/L (98-107) Carbon Dioxide Level 29 MMOL/L (21-32) 30 MMOL/L (21-32) 26 MMOL/L (21-32) Anion Gap 10 mmol/L (5-15) 8 mmol/L (5-15) 11 mmol/L (5-15) Blood Urea Nitrogen 24 mg/dL (7-18) 37 mg/dL (7-18) 37 mg/dL (7-18) Creatinine 6.2 MG/DL (0.55-1.30) 8.6 MG/DL (0.55-1.30) 8.5 MG/DL (0.55-1.30) Estimat Glomerular Filtration Rate 8.2 mL/min (>60) 5.7 mL/min (>60) 5.7 mL/min (>60) Glucose Level 83 MG/DL (74-106) 101 MG/DL (74-106) 121 MG/DL (74-106) Calcium Level 9.0 MG/DL (8.5-10.1) 9.1 MG/DL (8.5-10.1) 8.9 MG/DL (8.5-10.1) Total Bilirubin 0.5 MG/DL (0.2-1.0) Aspartate Amino Transf (AST/SGOT) 11 U/L (15-37) Alanine Aminotransferase (ALT/SGPT) 16 U/L (12-78) Alkaline Phosphatase 51 U/L (46-116) Pro-B-Type Natriuretic Peptide 2297 pg/mL (0-125) Total Protein 6.3 G/DL (6.4-8.2) Albumin 2.5 G/DL (3.4-5.0) Globulin 3.8 g/dL Albumin/Globulin Ratio 0.7 (1.0-2.7) Random Vancomycin Level 28.1 ug/mL Test 04/19/19 05:35 Random Vancomycin Level 20.2 ug/mL Objective: GENERAL: A well-developed female, appears to be in NAD HEENT: Overall negative. NECK: Supple. No adenopathy LUNGS: Good air entry overall. without rhonchi or wheeze CARDIAC: S1 and S2. Regular rate and rhythm without murmurs, rubs, gallops. ABDOMEN: Soft, nontender, nondistended. EXTREMITIES: No cyanosis or clubbing. No edema. Left upper extremity fistula NEURO: nonfocal Eric Earl MD Apr 19, 2019 08:40
--- NOTE | 2019-04-19 10:05 | Infectious Diseases Prog Note ---
Assessment/Plan Assessment/Plan antibiotics : vancomycin iv A 1. leucocytosis resolved 2. renal failure on dialysis 3. hypertension 4, cardiomyopathy 5. CVA P 1. d/c iv vancomycin 2. observe off antibiotics Subjective ROS Limited/Unobtainable: Yes Allergies: Coded Allergies: ASPIRIN (Unverified Allergy, Unknown, 04/13/19) PENICILLINS (Unverified Allergy, Unknown, 04/13/19) Objective Vital Signs Last 24 Hour Vital Signs Date Time Temp Pulse Resp B/P (MAP) Pulse Ox O2 Delivery O2 Flow Rate FiO2 04/19/19 08:39 88 126/74 04/19/19 08:16 Nasal Cannula 2.0 04/19/19 07:57 96.7 88 20 126/74 (91) 100 04/19/19 07:41 91 04/19/19 07:28 97 Nasal Cannula 2.0 28 04/19/19 04:00 82 04/19/19 04:00 97.0 86 16 116/65 (82) 97 04/19/19 00:00 85 04/19/19 00:00 98.1 83 19 111/70 (84) 96 04/18/19 21:00 Nasal Cannula 2.0 04/18/19 20:39 89 103/72 04/18/19 20:00 87 04/18/19 20:00 98.2 89 19 103/72 (82) 97 04/18/19 16:00 80 04/18/19 16:00 97.6 78 19 102/65 (77) 100 04/18/19 12:00 84 04/18/19 12:00 98.7 83 19 119/70 (86) 100 04/18/19 11:37 68 22 98 Height (Feet): 5 Height (Inches): 7.00 Weight (Pounds): 206 Respiratory/Chest: lungs clear Cardiovascular: normal rate, regular rhythm, no gallop/murmur Abdomen: soft, non tender Extremities: no edema, other - right subclavian catheter Laboratory Tests Test 04/19/19 05:35 Random Vancomycin Level 20.2 ug/mL Current Medications Medications (Trade) Dose Ordered Sig/Chris Route PRN Reason Start Time Stop Time Status Last Admin Dose Admin Acetaminophen (Tylenol) 500 mg Q6H PRN ORAL Mild Pain/Temp > 100.5 04/14/19 20:00 05/13/19 19:59 04/15/19 17:05 Acetaminophen (Tylenol) 650 mg Q6H PRN ORAL Mild Pain/Temp > 100.5 04/14/19 22:00 05/14/19 21:59 04/19/19 01:56 Carvedilol (Coreg) 12.5 mg EVERY 12 HOURS ORAL 04/14/19 21:00 05/13/19 20:59 04/19/19 08:39 Diphenhydramine HCl (Benadryl) 25 mg Q6H PRN ORAL Itching 04/14/19 20:00 05/13/19 19:59 Magnesium Hydroxide (Mom) 30 ml DAILYPRN PRN ORAL Constipation 04/18/19 10:15 05/18/19 10:14 04/19/19 08:39 Ondansetron HCl (Zofran) 4 mg Q6H PRN IVP Nausea & Vomiting 04/14/19 20:00 05/14/19 19:59 Pantoprazole (Protonix) 40 mg EVERY 12 HOURS IVP 04/14/19 21:00 05/13/19 20:59 04/19/19 08:39 Sevelamer Carbonate (Renvela) 800 mg THREE TIMES A DAY ORAL 04/15/19 09:00 05/13/19 17:59 04/19/19 08:39 Vancomycin HCl (Vanco rx to dose) 1 ea DAILY PRN MISC Per rx protocol 04/15/19 09:00 05/13/19 20:59 Vancomycin HCl 1 gm/Sodium Chloride 275 ml @ 183.708 mls/hr ONCE IVPB 04/19/19 12:00 04/19/19 13:00 Madeline Shetty MD Apr 19, 2019 10:05
--- NOTE | 2019-04-19 10:14 | NUR ---
*-*DISCHARGE PLANNING*-* PATIENT HAS BEEN REFERRED TO: [facility] P: [phone] F: [phone]
--- NOTE | 2019-04-19 10:18 | NUR ---
NURSE NOTES: Called [facility] for ambulance. It will be on will call
[2019-04-19] MEDS ORDERED: NS 275ml ONE (11:46)
[2019-04-19] MEDS ORDERED: Tubing IV Secondary IV ONE (11:46)
--- NOTE | 2019-04-19 11:50 | NUR ---
NURSE NOTES: Pt left the unit with a family member. Refused ambulance. Pt in stable condition, tele monitor and IV removed, no bleeding observed. No bleeding observed in L upper arm AV shunt. Pt does not have belongings. Explained DC paperwork with the pt, continue home meds. Explained to follow up with primary MD. Pt verbalized understanding.
[2019-04-19] MEDS ORDERED: Vancomycin 1 GM in NS 275 ML IVPB SCH (12:00)
--- NOTE | 2019-04-19 13:44 | NUR ---
*-*DISCHARGE PLANNED*-* PATIENT HAS BEEN ACCEPTED TO: [facility] P: [phone] F: [phone]
--- NOTE | 2019-04-21 12:22 | Discharge Summary ---
Discharge Summary Discharge Summary _ DATE OF ADMISSION: 04/13/2019 DATE OF DISCHARGE: 04/19/2019 DISCHARGED BY: Dr. Rex Earl CONSULTANTS: Dr. Madeline Walker BRIEF HOSPITAL COURSE: Patient is a 63-year-old female, was taken to the ED for noted significant amount of bleeding, possibly up to 1 L of blood from her dialysis shunt. Patient was hypotensive in the field. She was given IV bolus en route. The patient has history of end-stage renal disease on hemodialysis, has left upper extremity fistula. She also has history of hypertension, possible cardiomyopathy, history of CVA and hypertension. Upon evaluation at ED, blood pressure was stable. Hypotension was corrected in the field. There was bleeding AV shunt that was stabilized with a Dermabond. While at ED, blood pressure dropped. Previous IV was infiltrated. Another IV access was established and patient was given normal saline bolus. There was no change in patient mentation. Blood work showed elevated WBC to 18. Hemoglobin 9, hematocrit 29. BUN was 44 and creatinine 9.0. Troponin was 0.026. EKG was in normal sinus rhythm. Chest x-ray showed no acute disease. She was transfused 1 unit of blood. She was admitted in ICU for evaluation of bleeding AV fistula and anemia. She was continued on IV fluids. She had bleeding from the dialysis fistula and there was concern of infection due to leukocytosis. She was started empirically on vancomycin and cefepime. Elevated troponin was likely due to demand ischemia. Venous duplex did not show any evidence of DVT. Vascular surgeon was consulted to place a permacath to allow aVF rest. On 04/14, she underwent left arm fistulogram and [employer] WET POUR with placement of right IJ PermCath. She was given inpatient hemodialysis. During hemodialysis on 04/15, patient bled again. She had persistent anemia. She required total of 4 units packed RBC transfusion. 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 Cefepime was discontinued. She was continued on vancomycin. She had stable hemodialysis on 04/17 without any bleeding. Leukocytosis resolved. Blood culture did not isolate any growth. IV vancomycin was discontinued. Patient was cleared for discharge home with home health. FINAL DIAGNOSES: Bleeding AV fistula, significant amount of blood loss, status post repair AV fistula status post bleed with collapse bullae, possible occult infection Hemorrhagic shock Anemia due to bleeding AV fistula End-stage renal disease Mild protein calorie malnutrition Elevated natruretic peptide Lactic acidemia Possible sepsis No evidence of coagulopathy Old CVA DISPOSITION: DC home with home health. DISCHARGE MEDICATIONS: Refer to Discharge Medication List. DISCHARGE INSTRUCTIONS: Follow-up in a week. I have been assigned to complete a discharge summary on this account, I was not involved with the patient's management.--MEG Hernandez Jacqueline Robles NP Apr 21, 2019 12:22
== END 2019-04-19 11:47 | disposition home health service (06) | DRG 252 ==
LOC: EDBD 08:01 → EMR 08:20 → EDBEDREQ 09:59 → EDBEDREQSVC 09:59 → EDBEDREQ 11:20 → ICU 11:33 → 2E 04-14 19:30
PROC: 5A1D70Z Performance of Urinary Filtration, Intermittent, Less than 6 Hours Per Day (ICD-10-PCS; principal; 2019-04-14)
PROC: 0JH63XZ Insertion of Tunneled Vascular Access Device into Chest Subcutaneous Tissue and Fascia, Percutaneous Approach (ICD-10-PCS; 2019-04-15)
PROC: 05HM33Z Insertion of Infusion Device into Right Internal Jugular Vein, Percutaneous Approach (ICD-10-PCS; 2019-04-15)
PROC: B518ZZZ Fluoroscopy of Superior Vena Cava (ICD-10-PCS; 2019-04-15)
PROC: 05783ZZ Dilation of Left Axillary Vein, Percutaneous Approach (ICD-10-PCS; 2019-04-15)
PROC: 03723ZZ Dilation of Innominate Artery, Percutaneous Approach (ICD-10-PCS; 2019-04-15)
PROC: 057C3ZZ Dilation of Left Basilic Vein, Percutaneous Approach (ICD-10-PCS; 2019-04-15)
PROC: B51WYZZ Fluoroscopy of Dialysis Shunt/Fistula using Other Contrast (ICD-10-PCS; 2019-04-15)
PROC: 057Y3ZZ Dilation of Upper Vein, Percutaneous Approach (ICD-10-PCS; 2019-04-15)
PROC: 05WY37Z Revision of Autologous Tissue Substitute in Upper Vein, Percutaneous Approach (ICD-10-PCS; 2019-04-15)
DX: T82.838A Hemorrhage due to vascular prosthetic devices, implants and grafts, initial encounter (principal); A41.9 Sepsis, unspecified organism; R57.8 Other shock; N18.6 End stage renal disease; E44.1 Mild protein-calorie malnutrition; E87.2 Acidosis; I42.9 Cardiomyopathy, unspecified; I12.0 Hypertensive chronic kidney disease with stage 5 chronic kidney disease or end stage renal disease; Z68.30 Body mass index [BMI] 30.0-30.9, adult; E87.5 Hyperkalemia; Z99.2 Dependence on renal dialysis; Z68.32 Body mass index [BMI] 32.0-32.9, adult; E11.22 Type 2 diabetes mellitus with diabetic chronic kidney disease; Z86.73 Personal history of transient ischemic attack (TIA), and cerebral infarction without residual deficits; D50.0 Iron deficiency anemia secondary to blood loss (chronic)
CPT/HCPCS: 36415; 36902; 71045; 76000; 80048; 80053; 80202; 83605; 83735; 83880; 84484; 85007; 85025; 85610; 85730; 86706; 86850; 86900; 86901; 86920; 87040; 87081; 93005; 93970; 94003; 94150; 96365; 96367; 96375; 99291; 99292; J1580; J2250; J2405; J7030